=== PATIENT | male | born 1950 | race Caucasian/White ===

== ENCOUNTER 2020-05-06 11:13 | Inpatient (IN) ==
[2020-05-06] MEDS ORDERED: IOPAMIDOL 125 ML BOTTLE IV ONE (11:14)
[2020-05-06] MEDS ORDERED: 0.9 % SODIUM CHLORIDE 1,000 ML IV ONE ×3 (11:36→16:12)
[2020-05-06] MEDS ORDERED: INSULIN REGULAR, HUMAN 1 UNIT/0.01 ML UNIT IV ONE (12:01)
[2020-05-06 12:14] LABS: POC Creatinine 1.5 mg/dL (0.6-1.2)
--- NOTE | 2020-05-06 12:37 | Emergency Department Note ---
Weakness HPI General Chief complaint: Weakness Stated complaint: weakness in legs Time Seen by Provider: 05/06/20 11:18 Source: patient, RN notes reviewed and old records reviewed Mode of arrival: wheelchair Limitations: no limitations History of Present Illness HPI Narrative: Narrative: 70-year-old male complaining of generalized weakness but greatest in his lower extremities times months. Has a history of diabetes peripheral neuropathy wounds to bilateral lower extremities that have been getting worse to the point where he is unable to walk. States that he cannot walk to the bathroom and cannot take showers. And complains of generalized debilitation and unable to care for himself. Complains of numbness tingling and decreased sensation and motor control to bilateral lower extremities. Has a weeping wound to the heel of his left foot. Denies any headache vision changes sore throat stiff neck chest pain abdominal pain bowel or bladder changes. Complains of dyspnea on exertion and poor p.o. intake. MD Complaint: generalized weakness, numbness, tingling and difficulty walking Onset (ago): month(s) Duration: constant Location: LLE and RLE Migration: ascending Severity: severe Quality: tingling and numbness Improves with: none Worsens with: movement and exertion Context: history of similar Associated symptoms: Reports loss of appetite, myalgias and shortness of breath; Denies chest pain, diaphoresis, fever/chills and nausea/vomiting Related Data Home Medications Medication Instructions Recorded Confirmed metformin 1,000 mg PO BID 05/06/20 05/06/20 Previous Rx's Medication Instructions Recorded blood sugar diagnostic #100 each 01/26/17 pen needle, diabetic 31 gauge x #100 each 04/27/1705/08" losartan 100 1 tab PO QDAY #90 tab 03/26/20 mg-hydrochlorothiazide 25 mg tablet blood pressure test kit-large #1 ea 04/16/20 gabapentin 300 mg capsule 300 mg PO BID #180 cap 04/16/20 Allergies Allergy/AdvReac Type Severity Reaction Status Date / Time Penicillins Allergy Unknown Difficulty Verified 05/06/20 11:20 Breathing Review of Systems ROS ROS Narrative: Narrative: All systems ED: reviewed and negative except as stated. PFSH Narrative Patient History Narrative: Narrative: Medical/Surgical/Family History All Active Problems (Updated 05/06/20 @ 15:54 by Maurilio Skinner MD) Gangrene (Acute) Near syncope (Acute) Weakness (Acute) Diabetic ulcer of laughlin (Acute) Diabetic peripheral neuropathy (Chronic) Right knee pain (Acute) HTN (hypertension) (Chronic) Foot ulcer due to secondary DM (Acute) Tobacco abuse (Chronic) Blind left eye (Chronic ~1968) Lung disease (Chronic) DMII (diabetes mellitus, type 2) (Chronic ~2003) Medical History (Updated 05/06/20 @ 15:54 by Maurilio Skinner MD) Blind left eye (~1968) DMII (diabetes mellitus, type 2) (~2003) Lung disease Tobacco abuse Surgical History H/O colonoscopy (~1999) H/O eye surgery (~1968) Blind in left eye Family History Mother Dementia Social History Smoking Status: Current every day smoker Alcohol Intake Frequency: 0-2 drinks per day Substance Use: does not use Exam Narrative Narrative: Narrative: General Limitations: no limitations General appearance: Present alert, in no apparent distress and malaise Head Head: Present atraumatic and normocephalic Eye Eye: Present PERRL and other (Blind in the left eye); Absent normal appearance and EOMI ENT ENT: Present normal exam and mucous membranes dry Neck Neck: Present normal inspection and full ROM Chest Chest: Present normal inspection; Absent tenderness Respiratory Respiratory: Present normal lung sounds bilaterally; Absent respiratory distress Cardiovascular Cardiovascular: Present regular rate and normal rhythm; Absent systolic murmur Adbominal Abdominal: Present soft; Absent distention, tenderness, guarding and rebound Extremities Extremities: Present full ROM, pedal edema, pretibial edema, cyanosis and other (Has marked wet gangrenous necrosis to his left heel. Chronic stasis changes to bilateral lower extremities. Wounds to right foot.); Absent tenderness Back Back: Present normal inspection; Absent CVA tenderness (R) and CVA tenderness (L) Neurological Neurological: Present alert and oriented X3 Psychiatric Psychiatric: Present normal affect and normal mood Skin Skin: Present warm (WNL); Absent rash Course Vital Signs Vital signs: Vital Signs Temperature 97.0 F 05/06/20 11:14 Pulse Rate 86 05/06/20 11:14 Respiratory Rate 20 05/06/20 11:14 Blood Pressure 129/76 05/06/20 11:14 Pulse Oximetry (%) 100 05/06/20 11:14 Temperature 97.0 F 05/06/20 11:14 Pulse Rate 84 05/06/20 15:51 Respiratory Rate 18 05/06/20 15:51 Blood Pressure 116/66 05/06/20 15:46 Pulse Oximetry (%) 98 05/06/20 15:51 MDM MDM Narrative Medical decision making narrative: Narrative: 70-year-old male with hyperglycemia or 51 has been treated with IV fluids and IV insulin await recheck elevated white count with osteomyelitis of the left lower extremity. Complaints of generalized weakness and inability to ambulate. CT scan with arterial runoff into bilateral lower extremities. Renal insufficiency which has worsened. Patient will be admitted for IV antibiotics orthopedic consult IV fluids glucose management. Lab Data Lab results reviewed: Yes I reviewed the patient's lab results. Result diagrams: 05/06/20 11:48 05/06/20 11:48 Labs: Lab Results 05/06/20 05/06/20 05/06/20 Range/Units 11:48 11:48 11:48 WBC 13.4 H (4.5-11.0) K/mcL RBC 2.41 L (4.50-5.90) M/mcL Hgb 8.4 L (13.5-16.5) g/dL Hct 25.1 L (41.0-55.0) % MCV 104.1 H (80.0-100.0) fL MCH 34.9 H (26.0-34.0) pg MCHC 33.5 (31.0-36.0) g/dL RDW 13.2 (11.5-14.5) % Plt Count 197 (140-440) K/mcL MPV 11.1 H (7.4-10.4) fL Neut % (Auto) 92.9 H (38.0-78.0) % Lymph % (Auto) 4.0 L (15.0-49.0) % [place] % (Auto) 2.7 (1.0-12.0) % Eos % (Auto) 0.1 (0.0-7.0) % Baso % (Auto) 0.3 (0.0-2.0) % Lymph # (Auto) 0.54 L (1.50-4.80) K/mcL [place] # (Auto) 0.36 (0.10-0.90) K/mcL Eos # (Auto) 0.01 (0.00-0.70) K/mcL Baso # (Auto) 0.04 (0.00-0.20) K/mcL Absolute Neutrophils 12.42 H (1.80-8.00) K/mcL ESR 122 H (0-15) mm/hr VBG Lactic Acid (0.5-2.0) mmol/L Sodium 122 L (133-145) mmol/L Potassium 4.0 (3.3-5.1) mmol/L Chloride 86 L (96-108) mmol/L Carbon Dioxide 23 (22-30) mmol/L Anion Gap 13.0 (8.0-16.0) BUN 77 H (8-23) mg/dL Creatinine 1.8 H (0.7-1.2) mg/dL POC Creatinine 1.5 H (0.6-1.2) mg/dL GFR Calculation 38 Glucose 651 H* (70-105) mg/dL Calcium 8.9 (8.6-10.4) mg/dL Total Bilirubin 3.4 H (0.1-1.0) mg/dL AST 27 (<40) U/L ALT 21 (<40) U/L Alkaline Phosphatase 139 H (39-117) U/L Troponin T 0.03 H (<0.03) ng/mL C-Reactive Protein 23.90 H (0.03-0.80) mg/dL Total Protein 6.7 (5.9-8.4) gm/dL Albumin 2.4 L (3.2-5.2) gm/dL Globulin 4.3 H (2.2-3.7) gm/dL Albumin/Globulin Ratio 0.6 L (1.0-2.3) 05/06/20 Range/Units 11:48 WBC (4.5-11.0) K/mcL RBC (4.50-5.90) M/mcL Hgb (13.5-16.5) g/dL Hct (41.0-55.0) % MCV (80.0-100.0) fL MCH (26.0-34.0) pg MCHC (31.0-36.0) g/dL RDW (11.5-14.5) % Plt Count (140-440) K/mcL MPV (7.4-10.4) fL Neut % (Auto) (38.0-78.0) % Lymph % (Auto) (15.0-49.0) % [place] % (Auto) (1.0-12.0) % Eos % (Auto) (0.0-7.0) % Baso % (Auto) (0.0-2.0) % Lymph # (Auto) (1.50-4.80) K/mcL [place] # (Auto) (0.10-0.90) K/mcL Eos # (Auto) (0.00-0.70) K/mcL Baso # (Auto) (0.00-0.20) K/mcL Absolute Neutrophils (1.80-8.00) K/mcL ESR (0-15) mm/hr VBG Lactic Acid 1.8 (0.5-2.0) mmol/L Sodium (133-145) mmol/L Potassium (3.3-5.1) mmol/L Chloride (96-108) mmol/L Carbon Dioxide (22-30) mmol/L Anion Gap (8.0-16.0) BUN (8-23) mg/dL Creatinine (0.7-1.2) mg/dL POC Creatinine (0.6-1.2) mg/dL GFR Calculation Glucose (70-105) mg/dL Calcium (8.6-10.4) mg/dL Total Bilirubin (0.1-1.0) mg/dL AST (<40) U/L ALT (<40) U/L Alkaline Phosphatase (39-117) U/L Troponin T (<0.03) ng/mL C-Reactive Protein (0.03-0.80) mg/dL Total Protein (5.9-8.4) gm/dL Albumin (3.2-5.2) gm/dL Globulin (2.2-3.7) gm/dL Albumin/Globulin Ratio (1.0-2.3) ED POC Tests ED POC Tests: RENEE - SARS Antigen Negative EKG Data EKG #1: EKG attestation: Yes I reviewed and interpreted this EKG. EKG shows normal: sinus rhythm Rate: tachycardia Rhythm: NSR QTc: prolonged Interpretation: nonspecific ST-T wave changes Pulse Oximetry Data Pulse Ox %: 96 Interpretation: 96% on room air within normal limits Discharge Plan Patient/Caregiver Discharge Instructions Pt seen by MORTGAGE LOAN OFFICER/PA only: No Clinical Impression: Blind left eye, Gangrene DMII (diabetes mellitus, type 2) Qualifiers: Diabetes mellitus watermelon inspector insulin use: unspecified long-term insulin use status Diabetes mellitus complication status: with skin complications Patient Disposition: Xfer As Inpt ([facility]) Follow up with: Hayes Issa DO [Primary Care Provider] - Prescriptions: No Action (DME) pen needle, diabetic [BD Ultra-Fine Mini Pen Needle] 31 gauge x 3/16" needle See Dose Instructions .ROUTE .MEDSUPPLY Qty: 100 RF: 11 (DME) blood sugar diagnostic [Contour Next Test Strips] strip See Dose Instructions .ROUTE .MEDSUPPLY Qty: 100 RF: 4 losartan-hydrochlorothiazide 100-25 mg tablet 1 tab PO QDAY Qty: 90 RF: 3 gabapentin 300 mg capsule 300 mg PO BID Qty: 180 RF: 3 (DME) blood pressure test kit-large Kit See Rx Instructions .ROUTE .MEDSUPPLY Qty: 1 RF: 0 metformin 1,000 mg Tablet 1,000 mg PO BID RF: 0
[2020-05-06 12:55] LABS: Basophils # (Auto) 0.04 K/mcL (0.00-0.20); Basophils % (Auto) 0.3 % (0.0-2.0); Eosinophils # (Auto) 0.01 K/mcL (0.00-0.70); Eosinophils % (Auto) 0.1 % (0.0-7.0); Hematocrit 25.1 % (41.0-55.0); Hemoglobin 8.4 g/dL (13.5-16.5); Lymphocytes # (Auto) 0.54 K/mcL (1.50-4.80); Mean Cell Volume 104.1 fL (80.0-100.0); Mean Corpuscular HGB Conc 33.5 g/dL (31.0-36.0); Mean Platelet Volume 11.1 fL (7.4-10.4); Monocytes # (Auto) 0.36 K/mcL (0.10-0.90); Monocytes % (Auto) 2.7 % (1.0-12.0); Neutrophils % (Auto) 92.9 % (38.0-78.0); Platelet Count 197 K/mcL (140-440); RBC 2.41 M/mcL (4.50-5.90); Red Cell Distribution Width 13.2 % (11.5-14.5); WBC 13.4 K/mcL (4.5-11.0)
[2020-05-06 13:11] LABS: ALT/SGPT 21 U/L (<40); AST/SGOT 27 U/L (<40); Albumin 2.4 gm/dL (3.2-5.2); Albumin/Globulin Ratio 0.6 (1.0-2.3); Alkaline Phosphatase 139 U/L (39-117); Bilirubin,Total 3.4 mg/dL (0.1-1.0); Blood Urea Nitrogen 77 mg/dL (8-23); Calcium 8.9 mg/dL (8.6-10.4); Carbon Dioxide 23 mmol/L (22-30); Chloride 86 mmol/L (96-108); Globulin 4.3 gm/dL (2.2-3.7); Glomerular Filtration Rate 38; Glucose 651 mg/dL (70-105)
[2020-05-06] MEDS ORDERED: VANCOMYCIN 1,500 MG in 0.9 % SODIUM CHLORIDE 500 ML IV ONE (13:12)
[2020-05-06] MEDS ORDERED: LEVOFLOXACIN 750 MG/150 ML BAG IV SCH (13:15)
--- NOTE | 2020-05-06 13:31 | XRay Report ---
CLINICAL INFORMATION: Pre Op COMPARISON: 03/26/2020 FINDINGS: Heart is upper limits of normal in size - stable. Mediastinum and pulmonary vessels are normal. Minor bibasilar atelectasis noted. There are no arely infiltrates or effusions. IMPRESSION: Minor bibasilar atelectasis. Interpreted and Authenticated by: Hayes Harkins 05/06/20
--- NOTE | 2020-05-06 14:11 | Cat Scan Report ---
CLINICAL INFORMATION: Left lower extremity necrosis COMPARISON: None. TECHNIQUE: 120 cc of Isovue-370 were injected intravenously and, using SmartPrep to maximize arterial opacification, 0.625 mm helical slices were obtained from the diaphragm through the feet following reconstruction, 2.5 mm sagittal, coronal and axial reformatted images were processed and reviewed at bone and soft tissue windows. 3-D volume rendered and selective CPR images were constructed on an independent workstation.The exam was performed using radiation dose optimization techniques including, but not limited to, automated exposure control, adjustment of the mA and/or kV according to patient size and use of iterative reconstruction technique. FINDINGS: The abdominal aorta is normal diameter (16 mm) and contained scattered calcific and fibrofatty plaque. The celiac, SMA, PATRICK and renal arteries contain minimal plaque, but no stenoses. Both common, external and internal iliac, common femoral, superficial femoral and popliteal arteries contain scattered atherosclerotic plaque but no significant stenoses (less than 30%) on the right, a single trifurcation artery, posterior tibial, is patent to the foot. Multiple stenoses greater than 70% are seen within the posterior tibial artery. Both the anterior tibial and peroneal arteries are occluded above the ankle. On the left, the anterior tibial and peroneal arteries are occluded above the ankle. The posterior tibial artery is riddled with multiple stenoses greater than 70%, but is patent to the foot. There is extensive gas within the subcutaneous fat and the deep plantar fascia of the left foot. Smaller amounts in the dorsal subcutaneous soft tissues of the foot and also scattered within the ankle. Moderate gas is also seen in the anterior and posterior compartments of the calf. Moderate cellulitis and fasciitis is seen in in all left foot and calf compartments. On the right side, there is moderate cellulitis throughout the calf and foot. No evidence of gas however. Axial images also show multiple stones packing the gallbladder. Moderate right and small left patellofemoral/tibiofemoral effusions. Prostate is mildly enlarged 4.5 x 3.5 cm. There is either a prostate nodule or primary bladder polyp measuring 12 mm adjacent to the prostate base invaginating the urinary bladder. L4-5 and L5-S1 there is moderate central canal, lateral recess stenosis due to broad disc protrusion, ligament flavum and facet hypertrophy IMPRESSION: 1. The abdominal aorta, all iliac, common femoral, profunda femoral, superficial femoral and popliteal inflow arteries are widely patent with only minimal scattered calcific plaque. On the right, a single artery right trifurcation runoff: The posterior tibial artery which is patent to the foot. On the left, single vessel trifurcation artery - the posterior tibial artery is patent to the foot. There are multiple stenoses in both posterior tibial arteries: greater than 70% . 2. Extensive cellulitis throughout the left foot and calf including subcutaneous fat and fascia. Suspect infection with a gas forming organism. On the right, there is mild cellulitis in the calf and foot, but no evidence of gas. 3. Cholelithiasis. 4. Mild prostate enlargement. 12 mm prostate nodule versus polyp in the urinary bladder base. 5. Moderate right and small left tibiofemoral and patellofemoral effusions. Interpreted and Authenticated by: Hayes Harkins 05/06/20
[2020-05-06 14:25] LABS: Erythrocyte Sedimentation Rate 122 mm/hr (0-15)
[2020-05-06] MEDS ORDERED: INSULIN REGULAR, HUMAN 50 UNIT in 0.9 % SODIUM CHLORIDE 99.5 ML IV SCH ×2 (14:30→17:52)
--- NOTE | 2020-05-06 17:11 | Internal Med History&Physical ---
HPI History of Present Illness Patient information: Note initiated : 05/06/20 at 5:07 pm Service Date, if different from initiated Date: [] Patient: Frantz Johnston 70 y/o M admitted on for weakness in legs. Chief Complaint: Bilateral lower extremity redness weakness and gangrenous changes left heel History of present illness: Mr. Johnston is a 70 year old M with a history of poorly controlled diabetes/lower extremity diabetic wound who presents to the ER due to worsening lower extremity weakness/confusion/inability to take care of self. Patient also has not been able to bear weight or walk for the last few days. He lives alone at [place] and has been medically helpless over the last few days. He frequently sees wound care but was unable to change dressings. He complains of putrid foul-smelling odor with redness tenderness extending up to the lower thighs. He denied associated fever or chills but has been getting confused and lightheaded. Initial work-up in the ER was consistent with hyperosmolar nonketotic state with blood sugars in 600/acute kidney injury/gangrenous changes left lower extremity and bilateral lower extremity cellulitis. Patient was started on antibiotic coverage after cultures were drawn along with insulin drip and crystalloids. Orthopedic was consulted for possible surgical evaluation and amputation. He underwent CT runoff abdomen along with lower extremity that reveals extensive cellulitis in the left foot and gas and subcutaneous fat and fascia. Also cellulitis right lower extremity noted. Hospitalist service was consulted in light of above At the time of evaluation patient is very anxious/confused/unable to provide a detailed history but was able to endorse review of systems. Patient is very lethargic and confused. No family members present. Most of the history was obtained from review of medical records and ED physician. Patient was able to provide a very limited history. He has not been able to change his dressings recently that has led to worsening wounds. He is however reluctant for surgical intervention but his understanding of the severity of necrotizing infection may be limited due to mental status change due to sepsis induced toxic encephalopathy. Review of systems 10 point review system was performed and is negative except for 1 discussed above PFSH PFSH All Active Problems Gangrene (Acute) Near syncope (Acute) Weakness (Acute) Diabetic ulcer of laughlin (Acute) Diabetic peripheral neuropathy (Chronic) Right knee pain (Acute) HTN (hypertension) (Chronic) Foot ulcer due to secondary DM (Acute) Tobacco abuse (Chronic) Blind left eye (Chronic ~1968) Lung disease (Chronic) DMII (diabetes mellitus, type 2) (Chronic ~2003) Medical History Blind left eye (~1968) DMII (diabetes mellitus, type 2) (~2003) Lung disease Tobacco abuse Surgical History H/O colonoscopy (~1999) H/O eye surgery (~1968) Blind in left eye Family History Mother Dementia Social History marital status: smoking status: Current every day smoker tobacco type: cigarettes alcohol intake frequency: 0-2 drinks per day substance use type: does not use MEDS/ALLERGIES Home Medications and Allergies Home Medications Medication Instructions Recorded Confirmed Type blood sugar diagnostic #100 each 01/26/17 05/06/20 Rx pen needle, diabetic 31 gauge x #100 each 04/27/17 05/06/20 Rx 3/16" losartan 100 1 tab PO QDAY #90 tab 03/26/20 05/06/20 Rx mg-hydrochlorothiazide 25 mg tablet blood pressure test kit-large #1 ea 04/16/20 05/06/20 Rx gabapentin 300 mg capsule 300 mg PO BID #180 cap 04/16/20 05/06/20 Rx metformin 1,000 mg PO BID 05/06/20 05/06/20 History Allergies Allergy/AdvReac Type Severity Reaction Status Date / Time Penicillins Allergy Severe Difficulty Verified 05/06/20 19:10 Breathing EXAM Constitutional Vitals: Temp Pulse Resp BP Pulse Ox 97.0 F 90 25 H 111/79 99 05/06/20 11:14 05/06/20 16:36 05/06/20 16:36 05/06/20 16:31 05/06/20 16:36 Confused lethargic Head normocephalic Oral cavity dry No ear nose discharge Eye movement symmetrical Neck supple no lymphadenopathy S1-S2 tachycardia Labored shallow breathing Nondistended nontender abdomen Bilateral lower extremity ulcerative changes/erythema below knee left greater than right. Extensive area of gangrenous changes and putrid foul-smelling odor and discharge along the left heel Psych lethargic anxious Neuro GCS 9 DATA Data Completed and Pending Labs: Labs from last 24 hours 05/06/20 05/06/20 05/06/20 16:42 11:48 11:48 WBC RBC Hgb Hct MCV MCH MCHC RDW Plt Count MPV Neut % (Auto) Lymph % (Auto) [place] % (Auto) Eos % (Auto) Baso % (Auto) Lymph # (Auto) [place] # (Auto) Eos # (Auto) Baso # (Auto) Absolute Neutrophils ESR VBG Lactic Acid 1.8 Sodium Potassium Chloride Carbon Dioxide Anion Gap BUN Creatinine POC Creatinine GFR Calculation Glucose Calcium Total Bilirubin AST ALT Alkaline Phosphatase Troponin T 0.03 H C-Reactive Protein Total Protein Albumin Globulin Albumin/Globulin Ratio Urine Color Pending Urine Appearance Pending Urine pH Pending Ur Specific [place] Pending Urine Protein Pending Urine Glucose (UA) Pending Urine Ketones Pending Urine Occult Blood Pending Urine Nitrate Pending Urine Bilirubin Pending Urine Urobilinogen Pending Ur Leukocyte Esterase Pending 05/06/20 05/06/20 11:48 11:48 WBC 13.4 H RBC 2.41 L Hgb 8.4 L Hct 25.1 L MCV 104.1 H MCH 34.9 H MCHC 33.5 RDW 13.2 Plt Count 197 MPV 11.1 H Neut % (Auto) 92.9 H Lymph % (Auto) 4.0 L [place] % (Auto) 2.7 Eos % (Auto) 0.1 Baso % (Auto) 0.3 Lymph # (Auto) 0.54 L [place] # (Auto) 0.36 Eos # (Auto) 0.01 Baso # (Auto) 0.04 Absolute Neutrophils 12.42 H ESR 122 H VBG Lactic Acid Sodium 122 L Potassium 4.0 Chloride 86 L Carbon Dioxide 23 Anion Gap 13.0 BUN 77 H Creatinine 1.8 H POC Creatinine 1.5 H GFR Calculation 38 Glucose 651 H* Calcium 8.9 Total Bilirubin 3.4 H AST 27 ALT 21 Alkaline Phosphatase 139 H Troponin T C-Reactive Protein 23.90 H Total Protein 6.7 Albumin 2.4 L Globulin 4.3 H Albumin/Globulin Ratio 0.6 L Urine Color Urine Appearance Urine pH Ur Specific [place] Urine Protein Urine Glucose (UA) Urine Ketones Urine Occult Blood Urine Nitrate Urine Bilirubin Urine Urobilinogen Ur Leukocyte Esterase A/P Narrative A/P Narrative: * Hyperosmolar hyper glycemic nonketotic state-insulin drip/crystalloid/electrolyte monitoring * Severe sepsis with endorgan dysfunction including acute kidney injury/elevated bilirubin and acute mental status change. Broad antibiotic coverage/pancultures/aggressive management per guidelines * Necrotizing left lower extremity cellulitis/soft tissue infection with gangrenous change suspected gas-forming organism. Broad-spectrum antibiotic coverage/cultures/orthopedic consult for surgical evaluation. Include anaerobic coverage on clindamycin along with vancomycin and cefepime * Acute mental status change secondary to sepsis induced toxic encephalopathy. * Acute change mental status secondary to severe sepsis endorgan dysfunction * Acute renal failure-secondary to severe sepsis endorgan dysfunction. Creatinine 1.8. Avoid nephrotoxins. High likelihood of contrast-induced nephropathy following CT contrast. If worsening consult nephrology * Anemia-transfuse 2 units PRBC if indicated * History of hypertension-hold antihypertensives * DM type II-currently on insulin drip * Prophylaxis Heparin * Plan * Inpatient PCU admission, [place] 2 score 18 signify high risk mortality. * Insulin drip * Crystalloids and electrolyte replacement * Broad spectrum antibiotic coverage * Orthopedic consult * Wound care consult * Pre-existing medical condition management on home meds * Keep n.p.o. after midnight for surgical evaluation * Therapies as tolerated Critical time spent in excess of 35 minutes in addition to time spent on history and physical Time Spent With Patient Time: Total time spent is greater than 50% in coordination of care (as documented) at patient's floor/unit and/or counseling patient:
[2020-05-06 17:14] LABS: Appearance,Urine Clear (Clear); Bilirubin,Urine Negative (Negative); Color,Urine Dark yellow; Culture Indicated,Urine No; Glucose,Urine (UA) >=1000 mg/dL mg/dL (Negative); Ketones,Urine Negative (Negative); Leukocyte Esterase,Urine Negative /ug (Negative); Nitrate,Urine Negative (Negative); Protein,Urine Trace mg/dL (Negative); Specific Gravity,Urine <= 1.005 (1.000-1.035); Urine Blood Trace-intact ery/mcL (Negative); Urine Hyaline Cast 8 /lph (0-2); Urine RBC 1 /hpf (0-3); Urine Squamous Epithelial Cell < 1 /hpf (0-4); Urine WBC 2 /hpf (0-4); Urobilinogen,Urine Normal
[2020-05-06] MEDS ORDERED: DEXTROSE 31 GM ORAL.SUSP PO PRN (17:52)
[2020-05-06] MEDS ORDERED: VANCOMYCIN PER PHARMACY IV SCH (17:52)
[2020-05-06] MEDS ORDERED: ONDANSETRON 4 MG ODT TABLET SL PRN (17:52)
[2020-05-06] MEDS ORDERED: guaiFENesin/CODEINE 10 ML UDC PO PRN (17:52)
[2020-05-06] MEDS ORDERED: [UNRECOGNIZED DRUG - OTHER] SCH (17:52)
[2020-05-06] MEDS ORDERED: POLYETHYLENE GLYCOL 3350 17 GM PACKET PO PRN (17:52)
[2020-05-06] MEDS ORDERED: POTASSIUM CHLORIDE 40 MEQ in DEXTROSE 5% IN WATER 500 ML IV PRN (17:52)
[2020-05-06] MEDS ORDERED: ONDANSETRON 4 MG/2 ML VIAL IV PRN (17:52)
[2020-05-06] MEDS ORDERED: BISACODYL 10 MG SUPP.RECT PR PRN (17:52)
[2020-05-06] MEDS: 0.9 % SODIUM CHLORIDE 1,000 ML IV SCH ×3 (18:05→19:36)
[2020-05-06] MEDS: 0.9 % SODIUM CHLORIDE 250 ML IV SCH (18:18)
[2020-05-06] MEDS ORDERED: INSULIN REGULAR, HUMAN 1 UNIT/0.01 ML UNIT ONE (19:19)
[2020-05-06] MEDS: CEFEPIME 2 GM VIAL IV SCH (19:46)
[2020-05-06] MEDS: PIPERACILLIN SODIUM/TAZOBACTAM 3.375 GM in DEXTROSE 5% IN WATER 50 ML IV SCH ×2 (19:57→23:40)
[2020-05-06] MEDS: GABAPENTIN 300 MG CAPSULE PO SCH (20:22)
[2020-05-06] MEDS: HEPARIN 5,000 UNIT/ML VIAL SQ SCH (20:22)
[2020-05-06] MEDS: CYANOCOBALAMIN (VITAMIN B-12) 500 MCG TABLET PO SCH (20:22)
[2020-05-06] MEDS: 0.9 % SODIUM CHLORIDE 10 ML SYRINGE IV SCH (20:23)
[2020-05-06] MEDS: SENNOSIDES/DOCUSATE SODIUM 1 TAB TABLET PO SCH (20:23)
[2020-05-06] MEDS: DOCUSATE SODIUM 100 MG CAPSULE PO SCH (20:23)
[2020-05-06] MEDS: INSULIN LISPRO 1 UNIT/0.01 ML UNIT SQ SCH (21:52)
[2020-05-06] MEDS: DEXTROSE 5%-NS 1,000 ML IV SCH (22:15)
[2020-05-07] MEDS ORDERED: INSULIN REGULAR, HUMAN 1 UNIT/0.01 ML UNIT ONE (00:04)
[2020-05-07] MEDS: DEXTROSE 50% 50 ML VIAL IV PRN ×3 (00:13→03:10)
[2020-05-07 01:00] LABS: ALT/SGPT 16 U/L (<40); AST/SGOT 23 U/L (<40); Albumin 1.8 gm/dL (3.2-5.2); Albumin/Globulin Ratio 0.5 (1.0-2.3); Alkaline Phosphatase 98 U/L (39-117); Bilirubin,Direct 1.6 mg/dL (<0.3); Bilirubin,Total 1.8 mg/dL (0.1-1.0); Blood Urea Nitrogen 72 mg/dL (8-23); Calcium 8.2 mg/dL (8.6-10.4); Carbon Dioxide 24 mmol/L (22-30); Chloride 100 mmol/L (96-108); Globulin 3.6 gm/dL (2.2-3.7); Glomerular Filtration Rate 47; Glucose 54 mg/dL (70-105); Lactate Dehydrogenase 151 U/L (135-225); Triglycerides 119 mg/dL (<150); Uric Acid 8.9 mg/dL (2.5-8.0)
[2020-05-07] MEDS: MAGNESIUM SULFATE 2 GM/50 ML BAG IV PRN ×2 (01:59→08:00)
[2020-05-07] MEDS ORDERED: POTASSIUM CHLORIDE 20 MEQ/10 ML VIAL IV ONE (04:14)
[2020-05-07] MEDS: PIPERACILLIN SODIUM/TAZOBACTAM 3.375 GM in DEXTROSE 5% IN WATER 50 ML IV SCH (05:32)
[2020-05-07] MEDS: 0.9 % SODIUM CHLORIDE 10 ML SYRINGE IV SCH ×3 (05:33→22:08)
--- NOTE | 2020-05-07 06:31 | Consultation ---
DATE OF CONSULTATION: 05/06/2020 IDENTIFICATION: This is a 70-year-old male. CHIEF COMPLAINT: A left foot diabetic ulcer/gangrene. HISTORY OF PRESENT ILLNESS: This is a gentleman who has had previous foot ulcers that had been managed. He now suggests that he has had a several months' history of wounds to his bilateral feet, the left is most prominent, and he states this has been present for several months. It is unclear of how valid is his history. He presented today with confusion and diffuse weakness. He now presents with foul-smelling clearly infected left foot wound. PAST MEDICAL HISTORY: Diabetes, peripheral neuropathy, hypertension, lung disease. PAST SURGICAL HISTORY: Colonoscopy and eye surgeries, blind in the left eye. SOCIAL HISTORY: He lives alone in [place]. He is a daily smoker. MEDICATIONS: See medical record for a complete list, but he does take losartan/hydrochlorothiazide, gabapentin, metformin, and presumably insulin. ALLERGIES: HE LISTS PENICILLIN. PHYSICAL EXAMINATION: GENERAL: Shows that he is awake and seemingly alert. HEENT: Head is normocephalic. Left eye does have evidence of previous surgery and again blindness, left eye. HEART: Regular. LUNGS: Clear. ABDOMEN: Benign. EXTREMITIES: His left lower extremities shows a black eschar over the entire plantar surface of the heel. This extends to about mid foot. There is some fluctuance beneath this. There is surprisingly minimal cellulitis around it, but clearly there is a foul odor and this appears to be infected. He does have some several small superficial ulcers on the right. LABORATORY DATA: His white count is elevated at 13.4. He has a sed rate of 122. IMPRESSION: Necrotic wound of the left foot. The patient presents with signs of sepsis and unstable diabetes as initial presenting. Blood sugar 651, has acute renal failure. I have discussed treatment options with the patient. He is very adamant that no amputation would be consented to. I did discuss that debridement might be required and failure to adequately address his infection could be life threatening. The patient will certainly consider it, but he does not consent to any kind of surgical debridement at this time and adamantly states that he will not consider any amputation. The patient will be treated aggressively with antibiotics. Additional discussion about debridement will be held with the patient. I do think that he is ultimately best managed probably with an amputation. I will discuss this further with Dr. Farrar, foot and ankle surgeon. GDD:duane Job ID: [id number] Doc ID: [id number] Balwinder Spnecer MD
[2020-05-07 06:59] LABS: Basophils # (Auto) 0.02 K/mcL (0.00-0.20); Basophils % (Auto) 0.2 % (0.0-2.0); Eosinophils # (Auto) 0.08 K/mcL (0.00-0.70); Eosinophils % (Auto) 0.8 % (0.0-7.0); Hematocrit 19.4 % (41.0-55.0); Hemoglobin 6.6 g/dL (13.5-16.5); Lymphocytes # (Auto) 0.94 K/mcL (1.50-4.80); Lymphocytes % (Auto) 8.9 % (15.0-49.0); Mean Cell Volume 100.5 fL (80.0-100.0); Mean Platelet Volume 10.8 fL (7.4-10.4); Monocytes # (Auto) 0.49 K/mcL (0.10-0.90); Monocytes % (Auto) 4.6 % (1.0-12.0); Neutrophils % (Auto) 85.5 % (38.0-78.0); Platelet Count 180 K/mcL (140-440); RBC 1.93 M/mcL (4.50-5.90); Red Cell Distribution Width 13.3 % (11.5-14.5); WBC 10.6 K/mcL (4.5-11.0)
[2020-05-07 07:05] LABS: ALT/SGPT 15 U/L (<40); AST/SGOT 24 U/L (<40); Albumin 1.7 gm/dL (3.2-5.2); Albumin/Globulin Ratio 0.5 (1.0-2.3); Alkaline Phosphatase 102 U/L (39-117); Bilirubin,Direct 1.5 mg/dL (<0.3); Bilirubin,Total 1.8 mg/dL (0.1-1.0); Blood Urea Nitrogen 72 mg/dL (8-23); Calcium 8.1 mg/dL (8.6-10.4); Carbon Dioxide 22 mmol/L (22-30); Chloride 101 mmol/L (96-108); Globulin 3.5 gm/dL (2.2-3.7); Glomerular Filtration Rate 43; Glucose 136 mg/dL (70-105); Lactate Dehydrogenase 154 U/L (135-225); Phosphorous 2.2 mg/dL (2.5-4.5); Triglycerides 112 mg/dL (<150); Uric Acid 9.3 mg/dL (2.5-8.0)
[2020-05-07] MEDS ORDERED: 0.9 % SODIUM CHLORIDE 250 ML IV SCH (07:30)
[2020-05-07] MEDS: 0.9 % SODIUM CHLORIDE 250 ML IV SCH ×2 (07:54→17:48)
--- NOTE | 2020-05-07 08:09 | Ultrasound Report ---
History: Acute kidney injury FINDINGS: The right kidney measures 5.6 x 5.7 x 12.2 cm and the left measures 5.2 x 5.8 x 12.1 cm. The cortex is normal in thickness and echogenicity bilaterally. Patient has severe fatty infiltration of the liver, seen on yesterday's CT scan. Therefore the echogenicity of the renal cortex cannot be compared with the liver but it can be compared with the spleen. There is no renal mass, cyst, calculus or hydronephrosis. Urinary bladder is decompressed by a Verdugo catheter. With the decompressed bladder, we are unable to document flow of urine through either ureter into the bladder. Prostate has an estimated volume of 34 cc. IMPRESSION: Anatomically normal kidneys and no significant change from the abdomen CT scan performed on 05/06/20 Interpreted and Authenticated by: Nestor Adair 05/07/20
[2020-05-07] MEDS: INSULIN LISPRO 1 UNIT/0.01 ML UNIT SQ SCH ×4 (08:14→21:39)
--- NOTE | 2020-05-07 08:52 | Orthopedic Consult Note ---
HPI Data of Consult Primary Care Provider: Hayes Issa DO Consult Narrative Patient Information: Note initiated : 05/07/20 at 8:48 am Service Date, if different from initiated Date: [] Patient: Frantz Johnston 70 y/o M admitted on 05/06/20 for weakness in legs. Chief Complaint: [left foot infection] cc:: CC: Reji Almonte PFS PFSH All Active Problems Gangrene (Acute) Near syncope (Acute) Weakness (Acute) Diabetic ulcer of laughlin (Acute) Diabetic peripheral neuropathy (Chronic) Right knee pain (Acute) HTN (hypertension) (Chronic) Foot ulcer due to secondary DM (Acute) Tobacco abuse (Chronic) Blind left eye (Chronic ~1968) Lung disease (Chronic) DMII (diabetes mellitus, type 2) (Chronic ~2003) Medical History Blind left eye (~1968) DMII (diabetes mellitus, type 2) (~2003) Lung disease Tobacco abuse Surgical History H/O colonoscopy (~1999) H/O eye surgery (~1968) Blind in left eye Family History Mother Dementia Social History marital status: smoking status: Current every day smoker tobacco type: cigarettes alcohol intake frequency: 0-2 drinks per day substance use type: does not use MEDS/ALLERGIES Home Medications and Allergies Home Medications Medication Instructions Recorded Confirmed Type blood sugar diagnostic #100 each 01/26/17 05/06/20 Rx pen needle, diabetic 31 gauge x #100 each 04/27/17 05/06/20 Rx 3/16" losartan 100 1 tab PO QDAY #90 tab 03/26/20 05/06/20 Rx mg-hydrochlorothiazide 25 mg tablet blood pressure test kit-large #1 ea 04/16/20 05/06/20 Rx gabapentin 300 mg capsule 300 mg PO BID #180 cap 04/16/20 05/06/20 Rx metformin 1,000 mg PO BID 05/06/20 05/06/20 History Allergies Allergy/AdvReac Type Severity Reaction Status Date / Time Penicillins Allergy Severe Difficulty Verified 05/06/20 19:10 Breathing Physical Examination Ankle & Foot left: Ankle appearance: swelling, erythema and contusion Foot appearance: swelling, erythema and other (gangrene, malodorous left foot; heart: s1, s2, no murmur; lungs: low respiratory volume, crackles on exhale, not clear to auscultation) A/P Time Spent With Patient Time: Total time spent is greater than 50% in coordination of care (as documented) at patient's floor/unit and/or counseling patient: 1. 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
[2020-05-07] MEDS: CYANOCOBALAMIN (VITAMIN B-12) 500 MCG TABLET PO SCH ×2 (09:36→21:18)
[2020-05-07] MEDS: sitaGLIPtin 100 MG TABLET PO SCH (09:36)
[2020-05-07] MEDS: MULTIVIT,THER IRON,CA,FA & MIN 1 TABLET PO SCH (09:36)
[2020-05-07] MEDS: DOCUSATE SODIUM 100 MG CAPSULE PO SCH ×2 (09:36→21:17)
[2020-05-07] MEDS: THIAMINE 100 MG TABLET PO SCH (09:36)
[2020-05-07] MEDS: GABAPENTIN 300 MG CAPSULE PO SCH ×2 (09:36→21:18)
[2020-05-07] MEDS: HEPARIN 5,000 UNIT/ML VIAL SQ SCH ×2 (09:37→21:40)
[2020-05-07] MEDS: CEFEPIME 2 GM VIAL IV SCH ×2 (09:39→19:48)
[2020-05-07] MEDS: VANCOMYCIN 1,500 MG in 0.9 % SODIUM CHLORIDE 500 ML IV SCH (09:40)
[2020-05-07] MEDS: CLINDAMYCIN 600 MG in DEXTROSE 5% IN WATER 50 ML IV SCH ×2 (11:00→22:08)
[2020-05-07] MEDS ORDERED: GENTAMICIN SULFATE 800 MG/20 ML VIAL IR ONE (13:32)
[2020-05-07] MEDS ORDERED: BENZOCAINE/MENTHOL 1 LOZENGE PO PRN (13:33)
[2020-05-07] MEDS ORDERED: LACTATED RINGERS 250 ML IV PRN (13:33)
[2020-05-07] MEDS ORDERED: NALOXONE HCL 0.4 MG/ML VIAL IV PRN (13:33)
[2020-05-07] MEDS ORDERED: fentaNYL 100 MCG/2 ML VIAL IV PRN (13:33)
[2020-05-07] MEDS ORDERED: IPRATROPIUM/ALBUTEROL 3 ML AMPUL.NEB NEB PRN (13:33)
[2020-05-07] MEDS ORDERED: ACETAMINOPHEN 1,000 MG/100 ML BAG IV ONE (13:33)
--- NOTE | 2020-05-07 13:33 | Internal Med Progress Note ---
SUBJECTIVE Subjective Patient information: Note initiated : 05/07/20 at 1:28 pm Service Date, if different from initiated Date: [] Patient: Frantz Johnston 70 y/o M admitted on 05/06/20 for weakness in legs. Chief Complaint: [] Interval history: Mr. Johnston is a 70 year old M with a history of poorly controlled diabetes/lower extremity diabetic wound who presents to the ER due to worsening lower extremity weakness/confusion/inability to take care of self. Patient also has not been able to bear weight or walk for the last few days. He lives alone at [place] and has been medically helpless over the last few days. He frequently sees wound care but was unable to change dressings. He complains of putrid foul-smelling odor with redness tenderness extending up to the lower thighs. He denied associated fever or chills but has been getting confused and lightheaded. Initial work-up in the ER was consistent with hyperosmolar nonketotic state with blood sugars in 600/acute kidney injury/gangrenous changes left lower extremity and bilateral lower extremity cellulitis. Patient was started on antibiotic coverage after cultures were drawn along with insulin drip and crystalloids. Orthopedic was consulted for possible surgical evaluation a nd amputation. He underwent CT runoff abdomen along with lower extremity that reveals extensive cellulitis in the left foot and gas and subcutaneous fat and fascia. Also cellulitis right lower extremity noted. Hospitalist service was consulted in light of above At the time of evaluation patient is very anxious/confused/unable to provide a detailed history but was able to endorse review of systems. Patient is very lethargic and confused. No family members present. Most of the history was obt ained from review of medical records and ED physician. Patient was able to provide a very limited history. He has not been able to change his dressings recently that has led to worsening wounds. He is however reluctant for surgical intervention but his understanding of the severity of necrotizing infection may be limited due to mental status change due to sepsis induced toxic encephalopathy. 05/07-patient critically ill with gangrenous changes left lower extremity along with cellulitis. On broad antibiotic coverage. On insulin drip for HSM today. Hemoglobin 6.8 on 2 units blood transfusion. Remains critically ill. Patient continues to refuse surgical amputation advised by orthopedics. Will likely undergo debridement. Podiatry on board. White count 10.6, hemoglobin 6.6, glucose improved to 136, creatinine 1.6, phosphorus 2.2, bilirubin downtrending at 1.8. Constitutional Vitals: Vital Signs Temp Pulse Resp BP Pulse Ox 98.7 F 88 17 113/64 100 05/07/20 11:31 05/07/20 09:00 05/07/20 11:31 05/07/20 11:31 05/07/20 11:31 Period Temp Pulse Resp BP Sys/Anderson Pulse Ox Last 24 Hr 97.4 F-99.0 F 78-125 0-30 84-133/50-89 92-100 Intake and Output 05/06/20 05/07/20 05/07/20 21:59 05:59 13:59 Intake Total 3718 315 54 Output Total 3 251 75 Balance [facility]5 64 -21 Weight 78.063 kg Lethargic and drowsy but better than previous day Nonlabored breathing Pallor noted Putrid foul-smelling odor from necrotic soft tissue infection lower extremity Intake & Output: Intake & Output 05/06/20 05/07/20 05/07/20 21:59 05:59 13:59 Intake Total 3718 315 54 Output Total 3 251 75 Balance 3715 64 -21 Weight 78.063 kg Intake: IV 3718 315 54 Sodium Chloride 0.9% 1,000 ml @ 3000 Wide Open IV BOLUS SOL Rx#: [id number] Sodium Chloride 0.9% 250 ml @ 224 20 mls/hr IV .[id number] SOL Rx#: [id number] Cleocin 600 mg In Dextrose 5% 54 in Water 50 ml @ 100 mls/hr IV Q8H SOL Rx#:[id number] HumuLIN R 50 UNIT In Sodium 68 41 Chloride 0.9% 99.5 ml @ 1 UNIT/ HR 2 mls/hr IV DUR SOL Rx#: [id number] Vancomycin 1,500 mg In Sodium 500 Chloride 0.9% 500 ml @ 333.3 mls/hr IV ONCE ONE Rx#: [id number] Output: Urine Catheter Amount 250 75 # of times incontinent of urine 3 1 Other: Urine Appearance Clear Clear Uretheral (Verdugo) Clear Urine Color Dark Asia Dark Asia Light Asia Uretheral (Verdugo) Light Asia Urine Odor Strong Strong # Voids 1 OBJ DATA Labs CBC & Chem 7: 05/07/20 05:23 05/07/20 05:23 Labs: Abnormal Lab Results 05/07/20 05/07/20 05/06/20 05:23 05:23 16:42 WBC RBC 1.93 L Hgb 6.6 L* Hct 19.4 L* MCV 100.5 H MCH 34.2 H MPV 10.8 H Neut % (Auto) 85.5 H Lymph % (Auto) 8.9 L Lymph # (Auto) 0.94 L Absolute Neutrophils 9.07 H ESR Sodium Potassium Chloride BUN 72 H Creatinine 1.6 H POC Creatinine Glucose 136 H Uric Acid 9.3 H Calcium 8.1 L Phosphorus 2.2 L Magnesium Total Bilirubin 1.8 H Direct Bilirubin 1.5 H GGT 124 H Alkaline Phosphatase Troponin T C-Reactive Protein Total Protein 5.2 L Albumin 1.7 L Globulin Albumin/Globulin Ratio 0.5 L Urine Protein Trace A Urine Glucose (UA) >=1000 mg/dl A Urine Occult Blood Trace-intact A Hyaline Casts 8 H 05/06/20 05/06/20 05/06/20 11:48 11:48 11:48 WBC 13.4 H RBC 2.41 L Hgb 8.4 L Hct 25.1 L MCV 104.1 H MCH 34.9 H MPV 11.1 H Neut % (Auto) 92.9 H Lymph % (Auto) 4.0 L Lymph # (Auto) 0.54 L Absolute Neutrophils 12.42 H ESR 122 H Sodium 122 L Potassium Chloride 86 L BUN 77 H Creatinine 1.8 H POC Creatinine 1.5 H Glucose 651 H* Uric Acid Calcium Phosphorus Magnesium Total Bilirubin 3.4 H Direct Bilirubin GGT Alkaline Phosphatase 139 H Troponin T 0.03 H C-Reactive Protein 23.90 H Total Protein Albumin 2.4 L Globulin 4.3 H Albumin/Globulin Ratio 0.6 L Urine Protein Urine Glucose (UA) Urine Occult Blood Hyaline Casts 05/06/20 00:05 WBC RBC Hgb Hct MCV MCH MPV Neut % (Auto) Lymph % (Auto) Lymph # (Auto) Absolute Neutrophils ESR Sodium 132 L Potassium 3.1 L Chloride BUN 72 H Creatinine 1.5 H POC Creatinine Glucose 54 L Uric Acid 8.9 H Calcium 8.2 L Phosphorus 2.0 L Magnesium 1.2 L Total Bilirubin 1.8 H Direct Bilirubin 1.6 H GGT 131 H Alkaline Phosphatase Troponin T C-Reactive Protein Total Protein 5.4 L Albumin 1.8 L Globulin Albumin/Globulin Ratio 0.5 L Urine Protein Urine Glucose (UA) Urine Occult Blood Hyaline Casts Meds: Medications Acetaminophen (Acetaminophen 325 Mg Tablet) 650 mg PO Q4-6HP PRN; Protocol PRN Reason: Per Pain Protocol/Fever > 101 Bisacodyl (Bisacodyl 10 Mg Supp.Rect) [address] Q2-3DAYS PRN PRN Reason: Constipation Cefepime HCl (Cefepime 2 Gm Vial) 2 gm IV Q12H [facility]; Protocol Last Admin: 05/07/20 09:39 Dose: 2 gm Documented by: Cyanocobalamin (Cyanocobalamin (Vitamin B-12) 500 Mcg Tablet) 1,000 mcg PO BID [facility] Stop: 05/11/20 09:01 Last Admin: 05/07/20 09:36 Dose: Not Given Documented by: Dextrose (Dextrose 50% 50 Ml Vial) 0 ml IV UD PRN PRN Reason: Hypoglycemia Last Admin: 05/07/20 03:10 Dose: 25 ml Documented by: Diagnostic Test (Pha) (Accu-Chek 1 Each Strip) 1 each FS ACHS [facility] Last Admin: 05/07/20 10:57 Dose: 1 each Documented by: Docusate Sodium (Docusate Sodium 100 Mg Capsule) 100 mg PO BID [facility] Last Admin: 05/07/20 09:36 Dose: Not Given Documented by: Gabapentin (Gabapentin 300 Mg Capsule) 300 mg PO BID [facility] Last Admin: 05/07/20 09:36 Dose: Not Given Documented by: Glucose (Dextrose 31 Gm Oral.Susp) 15 gm PO PRN PRN PRN Reason: Hypoglycemia Guaifenesin/Codeine Phosphate (Guaifenesin/Codeine 10 Ml Udc) 10 ml PO Q4HP PRN PRN Reason: Cough Heparin Sodium (Porcine) (Heparin 5,000 Unit/Ml Vial) 5,000 unit SQ Q12 [facility] Last Admin: 05/07/20 09:37 Dose: Not Given Documented by: Hydromorphone HCl (Hydromorphone 0.5 Mg/0.5 Ml Syringe) 0.25 - 0.5 mg IV Q4HP PRN; Protocol PRN Reason: Per Pain Protocol Potassium Chloride 40 meq/ (Dextrose) 520 mls @ 130 mls/hr IV UD PRN PRN Reason: K+ = or < 3.5 Last Admin: 05/07/20 04:16 Dose: 130 mls/hr Documented by: Magnesium Sulfate (Magnesium Sulfate) 2 gm in 50 mls @ 50 mls/hr IV UD PRN PRN Reason: MG = or < 1.7 Last Admin: 05/07/20 08:00 Dose: 50 mls/hr Documented by: Acetaminophen (Ofirmev) 650 mg in 65 mls @ 130 mls/hr IV Q6HP PRN; Protocol PRN Reason: Per Pain Protocol/Fever > 101 Sodium Chloride (Sodium Chloride 0.9%) 1,000 mls @ 0 mls/hr IV BOLUS [facility] Last Infusion: 05/06/20 19:39 Dose: Infused Documented by: Insulin Human Regular 50 unit/ (Sodium Chloride) 100 mls @ 2 mls/hr IV DUR [facility]; Protocol Last Titration: 05/07/20 05:30 Dose: 0 unit/hr, 0 mls/hr Documented by: Sodium Chloride (Sodium Chloride 0.9%) 250 mls @ 20 mls/hr IV .[id number] [facility] Last Admin: 05/07/20 07:54 Dose: Not Given Documented by: Vancomycin HCl 1,500 mg/ (Sodium Chloride) 500 mls @ 333.3 mls/hr IV Q24H [facility] Last Admin: 05/07/20 09:40 Dose: 333.3 mls/hr Documented by: Dextrose/Sodium Chloride (Dextrose 5%-Ns Iv Solution) 1,000 mls @ 50 mls/hr IV .Q20H [facility] Last Admin: 05/06/20 22:15 Dose: 50 mls/hr Documented by: Sodium Chloride (Sodium Chloride 0.9%) 250 mls @ 20 mls/hr IV .[id number] [facility] Stop: 05/07/20 19:59 Last Admin: 05/07/20 10:55 Dose: 20 mls/hr Documented by: Clindamycin Phosphate 600 mg/ (Dextrose) 54 mls @ 100 mls/hr IV Q8H [facility] Last Infusion: 05/07/20 12:00 Dose: Infused Documented by: Insulin Human Lispro (Insulin Lispro 1 Unit/0.01 Ml Unit) 0 unit SQ ACHS [facility]; Protocol Last Admin: 05/07/20 10:57 Dose: Not Given Documented by: Iron Carb/Multivit/Long/Folic Acid (Multivit,Ther Iron,Ca,Fa & Min 1 Tablet) 1 tab PO DAILY [facility] Last Admin: 05/07/20 09:36 Dose: Not Given Documented by: Melatonin (Melatonin 3 Mg Tablet) 3 mg PO HSP PRN PRN Reason: Insomnia Ondansetron HCl (Ondansetron 4 Mg Odt Tablet) 4 mg SL Q4-6HP PRN; Protocol PRN Reason: Nausea And Vomiting Ondansetron HCl (Ondansetron 4 Mg/2 Ml Vial) 4 mg IV Q4-6HP PRN; Protocol PRN Reason: Nausea And Vomiting Senna/Docusate Sodium (Sennosides/Docusate Sodium 1 Tab Tablet) 1 tab PO [facility] Last Admin: 05/06/20 20:23 Dose: Not Given Documented by: Sitagliptin Phosphate (Sitagliptin 100 Mg Tablet) 100 mg PO DAILY [facility] Last Admin: 05/07/20 09:36 Dose: Not Given Documented by: Sodium Chloride (0.9 % Sodium Chloride 10 Ml Syringe) 10 ml IV Q8 [facility] Last Admin: 05/07/20 05:33 Dose: Not Given Documented by: Thiamine HCl (Thiamine 100 Mg Tablet) 100 mg PO DAILY [facility] Last Admin: 05/07/20 09:36 Dose: Not Given Documented by: Vancomycin HCl (Vancomycin Per Pharmacy) 1 order IV UD [facility]; Protocol A/P Narrative A/P Narrative: * Necrotizing left lower extremity cellulitis/soft tissue infection with gangrenous change suspected gas-forming organism. Continuing broad-spectrum antibiotic coverage/cultures/orthopedic consult for surgical evaluation. Surgery recommends amputation however patient refused. Will undergo debridement by podiatry. Very high risk mortality * Hyperosmolar hyper glycemic nonketotic state-improved on insulin drip. * Severe sepsis with endorgan dysfunction including acute kidney injury/elevated bilirubin and acute mental status change. Broad antibiotic coverage/aranda cultures/aggressive management per guidelines * Acute mental status change secondary to sepsis induced toxic encephalopathy/sepsis endorgan dysfunction. * Acute renal failure-secondary to severe sepsis endorgan dysfunction. Creatinine improving now 1.6 * Anemia-transfuse 2 units PRBC, hemoglobin 6.6 * History of hypertension-hold antihypertensives * DM type II-currently on insulin drip * Prophylaxis Heparin * Plan * 2 units PRBC * Insulin drip * Crystalloids and electrolyte replacement * Broad spectrum antibiotic coverage including cefepime/clindamycin/vancomycin * Orthopedic and infectious disease consult * Wound care/podiatry consult * Pre-existing medical condition management on home meds * Very high risk mortality Critical time spent in excess of 35 minutes in addition to time spent on history and physical Time Spent With Patient Time: Total time spent is greater than 50% in coordination of care (as documented) at patient's floor/unit and/or counseling patient: QUALITY VTE Deep Vein Thrombosis/Pulmonary Embolism Present on Admission: No
[2020-05-07] MEDS ORDERED: LACTATED RINGERS 1,000 ML IV SCH (13:45)
[2020-05-07] MEDS: 0.9 % SODIUM CHLORIDE 1,000 ML IV SCH ×2 (16:28→17:48)
[2020-05-07] MEDS: DEXTROSE 5%-NS 1,000 ML IV SCH (17:33)
--- NOTE | 2020-05-07 17:39 | Infectious Disease Consult ---
HPI Data of Consult Primary Care Provider: Hayes Issa DO Consult Narrative Patient Information: Note initiated : 05/07/20 at 5:25 pm Service Date, if different from initiated Date: [] Patient: Frantz Johnston 70 y/o M admitted on 05/06/20 for weakness in legs. Chief Complaint: [] Frantz is a 70-year-old diabetic who was admitted into the hospital yesterday for severe cellulitis of the left lower extremity. Photos observed of necrotic eschar over a large part of the left heel. I am not able to interview him. He is sedated following return from the OR in recovery room. He was taken to the operating room by Dr. Isaac Pierre podiatry for debridement, incision and drainage. A CT scan completed yesterday with runoff identified gas in the left foot calf subcutaneous tissue and fascia. He has been started on cefepime vancomycin and clindamycin. He has had diabetes since 2003. He was evaluated by orthopedist Dr. Spencer yesterday and lead systems analyst Dr. Pierre today. Both recommended below the knee amputation but patient has declined,. Blood cultures are positive for gram-positive cocci from yesterday. He has an allergy to penicillin. He has tolerated cefepime. His admit white count was 13.4 with H&H 8/25 and sed rate 122. MCV 104. Evidently, he does have a history of alcohol use. His admit creatinine was 1.8. cc:: CC: Reji Almonte Review of Systems Review of systems: Unable to obtain history from patient or review of systems. All of my information obtained from the chart. PFSH PFSH All Active Problems (Updated 05/07/20 @ 17:39 by Donn Rodriguez MD) Bacteremia (Acute) Gangrene (Acute) Near syncope (Acute) Weakness (Acute) Diabetic ulcer of laughlin (Acute) Diabetic peripheral neuropathy (Chronic) Right knee pain (Acute) HTN (hypertension) (Chronic) Foot ulcer due to secondary DM (Acute) Tobacco abuse (Chronic) Blind left eye (Chronic ~1968) Lung disease (Chronic) DMII (diabetes mellitus, type 2) (Chronic ~2003) Medical History (Updated 05/07/20 @ 17:39 by Donn Rodriguez MD) Blind left eye (~1968) DMII (diabetes mellitus, type 2) (~2003) Hyperglycemia on admit with acute kidney injury, anemia. Further recommen dations to follow regarding antibiotic will depend on culture results and wound appearance. Recommendations #1 maintain Vanco, Clinda, and cefepime at this time. 2. Obtain follow-up blood cultures tomorrow. 3. Follow-up on identification of bacteria on blood culture and wound cultures. Thank you very much. Lung disease Tobacco abuse Surgical History H/O colonoscopy (~1999) H/O eye surgery (~1968) Blind in left eye Family History Mother Dementia Social History marital status: smoking status: Current every day smoker tobacco type: cigarettes alcohol intake frequency: 0-2 drinks per day substance use type: does not use MEDS/ALLERGIES Home Medications and Allergies Home Medications Medication Instructions Recorded Confirmed Type blood sugar diagnostic #100 each 01/26/17 05/06/20 Rx pen needle, diabetic 31 gauge x #100 each 04/27/17 05/06/20 Rx 3/16" losartan 100 1 tab PO QDAY #90 tab 03/26/20 05/06/20 Rx mg-hydrochlorothiazide 25 mg tablet blood pressure test kit-large #1 ea 04/16/20 05/06/20 Rx gabapentin 300 mg capsule 300 mg PO BID #180 cap 04/16/20 05/06/20 Rx metformin 1,000 mg PO BID 05/06/20 05/06/20 History Allergies Allergy/AdvReac Type Severity Reaction Status Date / Time Penicillins Allergy Severe Difficulty Verified 05/06/20 19:10 Breathing Physical Examination Vital Signs Vital signs: Temp Pulse Resp BP Pulse Ox 96.2 F L 74 13 130/77 98 05/07/20 17:17 05/07/20 17:17 05/07/20 17:17 05/07/20 17:16 05/07/20 17:17 Additional Exam Additional exam: General: I saw him in an ICU bed. He was sleeping. I did not awaken him from sleep. He is on CPAP. HEENT: No facial rash. Lungs: Clear anteriorly. Heart: Irregularly irregular without murmur. Abdomen soft. Extremities: He has an Oumar wrap on the left lower extremity. He has heel protection bilaterally. He has onychomycosis. I did not remove the Oumar wrap from the left lower extremity. I did observe an anterior ankle ulceration approximately 4 cm x 2 cm. No foot erythema on the right foot. Results Laboratory Findings CBC and BMP: 05/07/20 05:23 05/07/20 05:23 Abnormal lab findings: Abnormal Labs 05/06/20 05/06/20 05/06/20 00:05 11:48 11:48 WBC 13.4 H RBC 2.41 L Hgb 8.4 L Hct 25.1 L MCV 104.1 H MCH 34.9 H MPV 11.1 H Neut % (Auto) 92.9 H Lymph % (Auto) 4.0 L Lymph # (Auto) 0.54 L Absolute Neutrophils 12.42 H ESR 122 H Sodium 132 L 122 L Potassium 3.1 L Chloride 86 L BUN 72 H 77 H Creatinine 1.5 H 1.8 H POC Creatinine 1.5 H Glucose 54 L 651 H* Uric Acid 8.9 H Calcium 8.2 L Phosphorus 2.0 L Magnesium 1.2 L Total Bilirubin 1.8 H 3.4 H Direct Bilirubin 1.6 H GGT 131 H Alkaline Phosphatase 139 H Troponin T C-Reactive Protein 23.90 H Total Protein 5.4 L Albumin 1.8 L 2.4 L Globulin 4.3 H Albumin/Globulin Ratio 0.5 L 0.6 L Urine Protein Urine Glucose (UA) Urine Occult Blood Hyaline Casts 05/06/20 05/06/20 05/07/20 11:48 16:42 05:23 WBC RBC 1.93 L Hgb 6.6 L* Hct 19.4 L* MCV 100.5 H MCH 34.2 H MPV 10.8 H Neut % (Auto) 85.5 H Lymph % (Auto) 8.9 L Lymph # (Auto) 0.94 L Absolute Neutrophils 9.07 H ESR Sodium Potassium Chloride BUN Creatinine POC Creatinine Glucose Uric Acid Calcium Phosphorus Magnesium Total Bilirubin Direct Bilirubin GGT Alkaline Phosphatase Troponin T 0.03 H C-Reactive Protein Total Protein Albumin Globulin Albumin/Globulin Ratio Urine Protein Trace A Urine Glucose (UA) >=1000 mg/dl A Urine Occult Blood Trace-intact A Hyaline Casts 8 H 05/07/20 05:23 WBC RBC Hgb Hct MCV MCH MPV Neut % (Auto) Lymph % (Auto) Lymph # (Auto) Absolute Neutrophils ESR Sodium Potassium Chloride BUN 72 H Creatinine 1.6 H POC Creatinine Glucose 136 H Uric Acid 9.3 H Calcium 8.1 L Phosphorus 2.2 L Magnesium Total Bilirubin 1.8 H Direct Bilirubin 1.5 H GGT 124 H Alkaline Phosphatase Troponin T C-Reactive Protein Total Protein 5.2 L Albumin 1.7 L Globulin Albumin/Globulin Ratio 0.5 L Urine Protein Urine Glucose (UA) Urine Occult Blood Hyaline Casts Microbiology: Microbiology 05/06/20 11:48 Blood Blood Culture - Preliminary Gram positive cocci 05/06/20 12:07 Blood Blood Culture - Preliminary Gram positive cocci May 06 blood cultures positive for gram-positive cocci. H&H 6.6/19.4 today. He received transfusion. Creatinine down to 1.6 today. A/P Assessment and plan (1) Bacteremia: Status: Acute Comment: Frantz is a 70-year-old poorly controlled diabetic who was admitted yesterday with a glucose of 651 and creatinine of 1.8. Blood cultures positive for gram- positive cocci originating from severe infection involving the left lower extremity. He is postop day zero incision and drainage of necrotic ulcer on the left heel. He had soft tissue gas identified on CT scan. Infection likely polymicrobial. He remains on broad-spectrum therapy appropriately with cefepime vancomycin and clindamycin. It will be important to follow-up on final identification of positive blood culture. I would recommend surveillance repeat blood cultures tomorrow to make sure bacteremia clears. (2) Gangrene: Status: Acute Comment: Patient has evidently previously refused BKA although that was both recommended by orthopedic and podiatry. Continue to educate patient on clinical course of severe problem. (3) Diabetic ulcer of laughlin: Status: Acute Comment: Right anterior ankle with ulceration. Appears to be stage III. (4) DMII (diabetes mellitus, type 2): Status: Chronic Comment: Hyperglycemia on admit with acute kidney injury, anemia. Further recommendations to follow regarding antibiotic will depend on culture results and wound appearance. Recommendations #1 maintain Vanco, Clinda, and cefepime at this time. 2. Obtain follow-up blood cultures tomorrow. 3. Follow-up on identification of bacteria on blood culture and wound cultures. Thank you very much. Qualifiers: Diabetes mellitus long term acute care registered nurse insulin use: unspecified long term acute care registered nurse insulin use status Diabetes mellitus complication status: with skin complications Time Spent With Patient Time: Total time spent is greater than 50% in coordination of care (as documented) at patient's floor/unit and/or counseling patient:
[2020-05-07] MEDS ORDERED: ONDANSETRON 4 MG/2 ML VIAL ONE (17:50)
[2020-05-07] MEDS ORDERED: fentaNYL 100 MCG/2 ML VIAL IV ONE (17:50)
[2020-05-07] MEDS ORDERED: DEXAMETHASONE 10 MG/ML VIAL ONE (17:50)
[2020-05-07] MEDS ORDERED: PROPOFOL 200 MG/20 ML VIAL IV ONE (17:50)
[2020-05-07] MEDS ORDERED: LIDOCAINE HCL/PF 100 MG/5 ML SYRINGE IV ONE (17:50)
[2020-05-07] MEDS ORDERED: SUCCINYLCHOLINE 20 MG/ML ML IV ONE (17:50)
[2020-05-07] MEDS ORDERED: KETAMINE 100 MG/ML ML ONE (17:50)
[2020-05-07] MEDS ORDERED: GLYCOPYRROLATE 0.2 MG/ML VIAL IV ONE (17:50)
[2020-05-07] MEDS ORDERED: MAGNESIUM SULFATE 2 GM/50 ML BAG IV ONE (17:50)
[2020-05-07] MEDS ORDERED: PHENYLEPHRINE 10 MG/ML VIAL ONE (17:50)
[2020-05-07] MEDS: SENNOSIDES/DOCUSATE SODIUM 1 TAB TABLET PO SCH (21:18)
[2020-05-07] MEDS ORDERED: CLINDAMYCIN 600 MG/4 ML VIAL ONE (22:13)
[2020-05-08] MEDS: CLINDAMYCIN 600 MG in DEXTROSE 5% IN WATER 50 ML IV SCH ×3 (05:25→22:20)
[2020-05-08] MEDS: 0.9 % SODIUM CHLORIDE 10 ML SYRINGE IV SCH ×3 (05:25→22:42)
[2020-05-08] MEDS: 0.9 % SODIUM CHLORIDE 250 ML IV SCH ×2 (07:32→20:33)
[2020-05-08] MEDS: INSULIN LISPRO 1 UNIT/0.01 ML UNIT SQ SCH ×5 (07:32→23:19)
[2020-05-08 08:02] LABS: Basophils # (Auto) 0.02 K/mcL (0.00-0.20); Basophils % (Auto) 0.2 % (0.0-2.0); Eosinophils # (Auto) 0 K/mcL (0.00-0.70); Eosinophils % (Auto) 0 % (0.0-7.0); Hemoglobin 9.9 g/dL (13.5-16.5); Lymphocytes # (Auto) 0.67 K/mcL (1.50-4.80); Lymphocytes % (Auto) 5.2 % (15.0-49.0); Mean Cell Volume 100.7 fL (80.0-100.0); Mean Platelet Volume 11.4 fL (7.4-10.4); Monocytes # (Auto) 0.38 K/mcL (0.10-0.90); Monocytes % (Auto) 2.9 % (1.0-12.0); Neutrophils % (Auto) 91.7 % (38.0-78.0); Platelet Count 190 K/mcL (140-440); RBC 2.98 M/mcL (4.50-5.90); Red Cell Distribution Width 16.2 % (11.5-14.5); WBC 12.9 K/mcL (4.5-11.0)
[2020-05-08 08:27] LABS: ALT/SGPT 14 U/L (<40); AST/SGOT 23 U/L (<40); Albumin 1.8 gm/dL (3.2-5.2); Albumin/Globulin Ratio 0.4 (1.0-2.3); Alkaline Phosphatase 120 U/L (39-117); Bilirubin,Direct 2.4 mg/dL (<0.3); Bilirubin,Total 2.6 mg/dL (0.1-1.0); Blood Urea Nitrogen 79 mg/dL (8-23); Calcium 8.5 mg/dL (8.6-10.4); Carbon Dioxide 17 mmol/L (22-30); Chloride 99 mmol/L (96-108); Globulin 4.3 gm/dL (2.2-3.7); Glomerular Filtration Rate 43; Glucose 300 mg/dL (70-105); Lactate Dehydrogenase 185 U/L (135-225); Phosphorous 4.9 mg/dL (2.5-4.5); Triglycerides 132 mg/dL (<150); Uric Acid 11.1 mg/dL (2.5-8.0)
--- NOTE | 2020-05-08 08:58 | XRay Report ---
HISTORY: Atelectasis, leg weakness, evaluate for interval change FINDINGS: Linear bands of discoid atelectasis are present in both lower lobes. These are unchanged from 05/06/20. A vague haziness is developing in the lung parenchyma in the right lower lobe and behind the left heart border. These are new since the prior chest x-ray. There is no lobar consolidation. The mid and upper lung gastelum are clear. No pleural effusion is present. The heart size is normal. Impression: mild alveolar opacities developing in both lower lobes which may be related to atelectasis or early pneumonia Interpreted and Authenticated by: Nestor Adair 05/08/20
[2020-05-08] MEDS: CEFEPIME 2 GM VIAL IV SCH ×2 (09:31→20:14)
[2020-05-08] MEDS: CYANOCOBALAMIN (VITAMIN B-12) 500 MCG TABLET PO SCH ×2 (09:31→21:14)
[2020-05-08] MEDS: GABAPENTIN 300 MG CAPSULE PO SCH ×2 (09:31→21:14)
[2020-05-08] MEDS: DOCUSATE SODIUM 100 MG CAPSULE PO SCH ×2 (09:31→21:14)
[2020-05-08] MEDS: MULTIVIT,THER IRON,CA,FA & MIN 1 TABLET PO SCH (09:31)
[2020-05-08] MEDS: HEPARIN 5,000 UNIT/ML VIAL SQ SCH ×2 (09:31→21:13)
[2020-05-08] MEDS: THIAMINE 100 MG TABLET PO SCH (09:31)
[2020-05-08] MEDS: sitaGLIPtin 100 MG TABLET PO SCH (09:34)
[2020-05-08] MEDS: VANCOMYCIN 1,500 MG in 0.9 % SODIUM CHLORIDE 500 ML IV SCH (10:18)
[2020-05-08] MEDS: INSULIN GLARGINE, HUMAN 1 UNIT/0.01 ML SQ SCH ×2 (10:25→10:26)
--- NOTE | 2020-05-08 10:36 | Internal Med Progress Note ---
SUBJECTIVE Subjective Patient information: Note initiated : 05/08/20 at 10:32 am Service Date, if different from initiated Date: [] Patient: Frantz Johnston 70 y/o M admitted on 05/06/20 for weakness in legs. Chief Complaint: [] Interval history: Mr. Johnston is a 70 year old M with a history of poorly controlled diabetes/lower extremity diabetic wound who presents to the ER due to worsening lower extremity weakness/confusion/inability to take care of self. Patient also has not been able to bear weight or walk for the last few days. He lives alone at [place] and has been medically helpless over the last few days. He frequently sees wound care but was unable to change dressings. He complains of putrid foul-smelling odor with redness tenderness extending up to the lower thighs. He denied associated fever or chills but has been getting confused and lightheaded. Initial work-up in the ER was consistent with hyperosmolar nonketotic state with blood sugars in 600/acute kidney injury/gangrenous changes left lower extremity and bilateral lower extremity cellulitis. Patient was started on antibiotic coverage after cultures were drawn along with insulin drip and crystalloids. Orthopedic was consulted for possible surgical evaluation and amputation. He underwent CT runoff abdomen along with lower extremity that reveals extensive cellulitis in the left foot and gas and subcutaneous fat and fascia. Also cellulitis right lower extremity noted. Hospitalist service was consulted in light of above At the time of evaluation patient is very anxious/confused/unable to provide a detailed history but was able to endorse review of systems. Patient is very lethargic and confused. No family members present. Most of the history was ob tained from review of medical records and ED physician. Patient was able to provide a very limited history. He has not been able to change his dressings recently that has led to worsening wounds. He is however reluctant for surgical intervention but his understanding of the severity of necrotizing infection may be limited due to mental status change due to sepsis induced toxic encephalopathy. 05/07-patient critically ill with gangrenous changes left lower extremity along with cellulitis. On broad antibiotic coverage. On insulin drip for HSM today. Hemoglobin 6.8 on 2 units blood transfusion. Remains critically ill. Patient continues to refuse surgical amputation advised by orthopedics. Will likely undergo debridement. Podiatry on board. White count 10.6, hemoglobin 6.6, glucose improved to 136, creatinine 1.6, phosphorus 2.2, bilirubin downtrending at 1.8. -05/07 4 PM . discussed case with anesthesia post surgery. Patient profoundly hypoxic following extubation after debridement irrigation procedure. Patient was started on BiPAP at PACU. Patient was transferred and received in ICU on BiPAP. Stat ABGs not available due to heart state. However patient currently on 40% FiO2. Family members were informed by anesthesia about the critical nature of illness. Patient will be monitored closely and will be intubated if necessary and if evidence of worsening respiratory failure 05/08 patient overnight on BiPAP. More lucid alert this morning. Trial off BiPAP, tolerating well. Stable hemodynamics. Postop dressing. White count 12.9. Hemoglobin improved to 9.9 following units PRBC transfusion, sodium 129, potassium 5.4 likely secondary to hemolysis posttransfusion, continue monitoring, creatinine 1.6, blood sugar 300 started on basal insulin, bilirubin 2.4 Constitutional Vitals: Vital Signs Temp Pulse Resp BP Pulse Ox 97.9 F 72 21 125/65 98 05/08/20 10:30 05/08/20 10:30 05/08/20 10:30 05/08/20 10:00 05/08/20 10:30 Period Temp Pulse Resp BP Sys/Anderson Pulse Ox Last 24 Hr 96.1 F-98.9 F 60-123 11-27 97-155/56-135 73-100 Intake and Output 05/07/20 05/08/20 05/08/20 21:59 05:59 13:59 Intake Total 1547 54 54 Output Total 25 200 Balance 1522 -146 54 Weight 91.716 kg Alert and respond to commands Off noninvasive ventilation Bilateral lower extremity in dressing/pneumatic boot No anxiety Intake & Output: Intake & Output 05/07/20 05/08/20 05/08/20 21:59 05:59 13:59 Intake Total 1547 54 54 Output Total 25 200 Balance 1522 -146 54 Weight 91.716 kg Intake: IV 1247 54 54 Sodium Chloride 0.9% 1,000 ml @ 1000 50 mls/hr IV .Q20H [facility] Rx#: [id number] Sodium Chloride 0.9% 250 ml @ 137 20 mls/hr IV .[id number] [facility] Rx#: [id number] Cleocin 600 mg In Dextrose 5% 54 54 in Water 50 ml @ 100 mls/hr IV Q8H [facility] Rx#:[id number] Dextrose 5%-Ns IV Solution 1, 10 000 ml @ 50 mls/hr IV .Q20H [facility] Rx#:[id number] IV - Manual Only 300 Output: Urine Catheter Amount 200 Void Amount 25 Other: Urine Appearance Clear Clear Uretheral (Verdugo) Clear Clear Clear Urine Color Dark Asia Dark Asia Bright Yellow Uretheral (Verdugo) Dark Asia Dark Asia Bright Yellow Urine Odor Strong Strong OBJ DATA Labs CBC & Chem 7: 05/08/20 06:15 05/08/20 06:15 Labs: Abnormal Lab Results 05/08/20 05/08/20 05/08/20 08:06 06:15 06:15 WBC 12.9 H RBC 2.98 L Hgb 9.9 L Hct 30.0 L MCV 100.7 H MCH RDW 16.2 H MPV 11.4 H Neut % (Auto) 91.7 H Lymph % (Auto) 5.2 L Lymph # (Auto) 0.67 L Absolute Neutrophils 11.86 H ESR Sodium 129 L Potassium 5.4 H Chloride Carbon Dioxide 17 L BUN 79 H Creatinine 1.6 H POC Creatinine Glucose 300 H Uric Acid 11.1 H Calcium 8.5 L Phosphorus 4.9 H Magnesium Total Bilirubin 2.6 H Direct Bilirubin 2.4 H GGT 131 H Alkaline Phosphatase 120 H Troponin T C-Reactive Protein Total Protein Albumin 1.8 L Globulin 4.3 H Albumin/Globulin Ratio 0.4 L Urine Protein Urine Glucose (UA) Urine Occult Blood Hyaline Casts Vancomycin Trough 21.9 H* 05/07/20 05/07/20 05/06/20 05:23 05:23 16:42 WBC RBC 1.93 L Hgb 6.6 L* Hct 19.4 L* MCV 100.5 H MCH 34.2 H RDW MPV 10.8 H Neut % (Auto) 85.5 H Lymph % (Auto) 8.9 L Lymph # (Auto) 0.94 L Absolute Neutrophils 9.07 H ESR Sodium Potassium Chloride Carbon Dioxide BUN 72 H Creatinine 1.6 H POC Creatinine Glucose 136 H Uric Acid 9.3 H Calcium 8.1 L Phosphorus 2.2 L Magnesium Total Bilirubin 1.8 H Direct Bilirubin 1.5 H GGT 124 H Alkaline Phosphatase Troponin T C-Reactive Protein Total Protein 5.2 L Albumin 1.7 L Globulin Albumin/Globulin Ratio 0.5 L Urine Protein Trace A Urine Glucose (UA) >=1000 mg/dl A Urine Occult Blood Trace-intact A Hyaline Casts 8 H Vancomycin Trough 05/06/20 05/06/20 05/06/20 11:48 11:48 11:48 WBC 13.4 H RBC 2.41 L Hgb 8.4 L Hct 25.1 L MCV 104.1 H MCH 34.9 H RDW MPV 11.1 H Neut % (Auto) 92.9 H Lymph % (Auto) 4.0 L Lymph # (Auto) 0.54 L Absolute Neutrophils 12.42 H ESR 122 H Sodium 122 L Potassium Chloride 86 L Carbon Dioxide BUN 77 H Creatinine 1.8 H POC Creatinine 1.5 H Glucose 651 H* Uric Acid Calcium Phosphorus Magnesium Total Bilirubin 3.4 H Direct Bilirubin GGT Alkaline Phosphatase 139 H Troponin T 0.03 H C-Reactive Protein 23.90 H Total Protein Albumin 2.4 L Globulin 4.3 H Albumin/Globulin Ratio 0.6 L Urine Protein Urine Glucose (UA) Urine Occult Blood Hyaline Casts Vancomycin Trough 05/06/20 00:05 WBC RBC Hgb Hct MCV MCH RDW MPV Neut % (Auto) Lymph % (Auto) Lymph # (Auto) Absolute Neutrophils ESR Sodium 132 L Potassium 3.1 L Chloride Carbon Dioxide BUN 72 H Creatinine 1.5 H POC Creatinine Glucose 54 L Uric Acid 8.9 H Calcium 8.2 L Phosphorus 2.0 L Magnesium 1.2 L Total Bilirubin 1.8 H Direct Bilirubin 1.6 H GGT 131 H Alkaline Phosphatase Troponin T C-Reactive Protein Total Protein 5.4 L Albumin 1.8 L Globulin Albumin/Globulin Ratio 0.5 L Urine Protein Urine Glucose (UA) Urine Occult Blood Hyaline Casts Vancomycin Trough Meds: Medications Acetaminophen (Acetaminophen 325 Mg Tablet) 650 mg PO Q4-6HP PRN; Protocol PRN Reason: Per Pain Protocol/Fever > 101 Bisacodyl (Bisacodyl 10 Mg Supp.Rect) 10 mg NC Q2-3DAYS PRN PRN Reason: Constipation Cefepime HCl (Cefepime 2 Gm Vial) 2 gm IV Q12H [facility]; Protocol Last Admin: 05/08/20 09:31 Dose: 2 gm Documented by: Cyanocobalamin (Cyanocobalamin (Vitamin B-12) 500 Mcg Tablet) 1,000 mcg PO BID [facility] Stop: 05/11/20 09:01 Last Admin: 05/08/20 09:31 Dose: 1,000 mcg Documented by: Dextrose (Dextrose 50% 50 Ml Vial) 0 ml IV UD PRN PRN Reason: Hypoglycemia Last Admin: 05/07/20 03:10 Dose: 25 ml Documented by: Diagnostic Test (Pha) (Accu-Chek 1 Each Strip) 1 each FS ACHS [facility] Last Admin: 05/08/20 07:32 Dose: 1 each Documented by: Docusate Sodium (Docusate Sodium 100 Mg Capsule) 100 mg PO BID [facility] Last Admin: 05/08/20 09:31 Dose: 100 mg Documented by: Gabapentin (Gabapentin 300 Mg Capsule) 300 mg PO BID [facility] Last Admin: 05/08/20 09:31 Dose: 300 mg Documented by: Glucose (Dextrose 31 Gm Oral.Susp) 15 gm PO PRN PRN PRN Reason: Hypoglycemia Guaifenesin/Codeine Phosphate (Guaifenesin/Codeine 10 Ml Udc) 10 ml PO Q4HP PRN PRN Reason: Cough Heparin Sodium (Porcine) (Heparin 5,000 Unit/Ml Vial) 5,000 unit SQ Q12 [facility] Last Admin: 05/08/20 09:31 Dose: 5,000 unit Documented by: Hydromorphone HCl (Hydromorphone 0.5 Mg/0.5 Ml Syringe) 0.25 - 0.5 mg IV Q4HP PRN; Protocol PRN Reason: Per Pain Protocol Potassium Chloride 40 meq/ (Dextrose) 520 mls @ 130 mls/hr IV UD PRN PRN Reason: K+ = or < 3.5 Last Infusion: 05/07/20 08:20 Dose: Infused Documented by: Magnesium Sulfate (Magnesium Sulfate) 2 gm in 50 mls @ 50 mls/hr IV UD PRN PRN Reason: MG = or < 1.7 Last Infusion: 05/07/20 09:05 Dose: Infused Documented by: Acetaminophen (Ofirmev) 650 mg in 65 mls @ 130 mls/hr IV Q6HP PRN; Protocol PRN Reason: Per Pain Protocol/Fever > 101 Sodium Chloride (Sodium Chloride 0.9%) 1,000 mls @ 0 mls/hr IV BOLUS [facility] Last Admin: 05/07/20 16:28 Dose: Not Given Documented by: Insulin Human Regular 50 unit/ (Sodium Chloride) 100 mls @ 2 mls/hr IV DUR [facility]; Protocol Last Titration: 05/07/20 05:30 Dose: 0 unit/hr, 0 mls/hr Documented by: Sodium Chloride (Sodium Chloride 0.9%) 250 mls @ 20 mls/hr IV .[id number] [facility] Last Admin: 05/08/20 07:32 Dose: Not Given Documented by: Clindamycin Phosphate 600 mg/ (Dextrose) 54 mls @ 100 mls/hr IV Q8H [facility] Last Infusion: 05/08/20 10:19 Dose: Infused Documented by: Sodium Chloride (Sodium Chloride 0.9%) 1,000 mls @ 50 mls/hr IV .Q20H [facility] Last Admin: 05/07/20 17:48 Dose: 50 mls/hr Documented by: Insulin Glargine (Insulin Glargine, Human 1 Unit/0.01 Ml) 10 unit SQ DAILY [facility] Last Admin: 05/08/20 10:26 Dose: Not Given Documented by: Insulin Human Lispro (Insulin Lispro 1 Unit/0.01 Ml Unit) 0 unit SQ ACHS [facility]; Protocol Last Admin: 05/08/20 07:32 Dose: 6 unit Documented by: Iron Carb/Multivit/Gilby/Folic Acid (Multivit,Ther Iron,Ca,Fa & Min 1 Tablet) 1 tab PO DAILY [facility] Last Admin: 05/08/20 09:31 Dose: 1 tab Documented by: Melatonin (Melatonin 3 Mg Tablet) 3 mg PO HSP PRN PRN Reason: Insomnia Ondansetron HCl (Ondansetron 4 Mg Odt Tablet) 4 mg SL Q4-6HP PRN; Protocol PRN Reason: Nausea And Vomiting Ondansetron HCl (Ondansetron 4 Mg/2 Ml Vial) 4 mg IV Q4-6HP PRN; Protocol PRN Reason: Nausea And Vomiting Senna/Docusate Sodium (Sennosides/Docusate Sodium 1 Tab Tablet) 1 tab PO HS [facility] Last Admin: 05/07/20 21:18 Dose: Not Given Documented by: Sitagliptin Phosphate (Sitagliptin 100 Mg Tablet) 100 mg PO DAILY [facility] Last Admin: 05/08/20 09:34 Dose: 100 mg Documented by: Sodium Chloride (0.9 % Sodium Chloride 10 Ml Syringe) 10 ml IV Q8 [facility] Last Admin: 05/08/20 05:25 Dose: Not Given Documented by: Thiamine HCl (Thiamine 100 Mg Tablet) 100 mg PO DAILY [facility] Last Admin: 05/08/20 09:31 Dose: 100 mg Documented by: Vancomycin HCl (Vancomycin Per Pharmacy) 1 order IV UD [facility]; Protocol A/P Assessment and plan (1) Bacteremia: Status: Acute Comment: Frantz is a 70-year-old poorly controlled diabetic who was admitted yesterday with a glucose of 651 and creatinine of 1.8. Blood cultures positive for gram- positive cocci originating from severe infection involving the left lower extremity. He is postop day zero incision and drainage of necrotic ulcer on the left heel. He had soft tissue gas identified on CT scan. Infection likely polymicrobial. He remains on broad-spectrum therapy appropriately with cefepime vancomycin and clindamycin. It will be important to follow-up on final identification of positive blood culture. I would recommend surveillance repeat blood cultures tomorrow to make sure bacteremia clears. (2) Gangrene: Status: Acute Comment: Patient has evidently previously refused BKA although that was both recommended by orthopedic and podiatry. Continue to educate patient on clinical course of severe problem. (3) Diabetic ulcer of [place]: Status: Acute Comment: Right anterior ankle with ulceration. Appears to be stage III. (4) DMII (diabetes mellitus, type 2): Status: Chronic Comment: Hyperglycemia on admit with acute kidney injury, anemia. Further recommendations to follow regarding antibiotic will depend on culture results and wound appearance. Recommendations #1 maintain Vanco, Clinda, and cefepime at this time. 2. Obtain follow-up blood cultures tomorrow. 3. Follow-up on identification of bacteria on blood culture and wound cultures. Thank you very much. Qualifiers: Diabetes mellitus mcc insulin use: unspecified salvage determiner insulin use status Diabetes mellitus complication status: with skin complications Narrative A/P Narrative: * Necrotizing left lower extremity cellulitis/soft tissue infection with gangrenous change suspected gas-forming organism. Continuing broad-spectrum antibiotic coverage/cultures/orthopedic consult for surgical evaluation. Surgery recommends amputation however patient refused. Will undergo debr idement by podiatry. Very high risk mortality * Acute hypoxic respiratory failure overnight on noninvasive ventilation. Now trial off BiPAP. * Hyperosmolar hyper glycemic nonketotic state-improved on insulin drip. Transition to basal insulin/CC diet * Severe sepsis with endorgan dysfunction including acute kidney injury/elevated bilirubin and acute mental status change. Broad antibiotic coverage /pancultures/aggressive management per guidelines * Acute mental status change secondary to sepsis induced toxic encephalopathy/sepsis endorgan dysfunction. * Acute renal failure-secondary to severe sepsis endorgan dysfunction. Creatinine gradually downtrending * Anemia-improved from 6.6-9.9 post 2 units PRBC transfusion * History of hypertension-hold antihypertensives * DM type II-currently on insulin drip * Prophylaxis Heparin * Plan * Basal panel insulin/CC diet * Wound care * Wean BiPAP as tolerated * Broad spectrum antibiotic coverage including cefepime/clindamycin/vancomycin * Pre-existing medical condition management on home meds * Poor long-term prognosis Critical time spent in excess of 35 minutes on management of noninvasive ventilation/severe sepsis Time Spent With Patient Time: Total time spent is greater than 50% in coordination of care (as documented) at patient's floor/unit and/or counseling patient: QUALITY VTE Deep Vein Thrombosis/Pulmonary Embolism Present on Admission: No
[2020-05-08] MEDS: 0.9 % SODIUM CHLORIDE 1,000 ML IV SCH ×2 (14:26→17:27)
[2020-05-08] MEDS: SENNOSIDES/DOCUSATE SODIUM 1 TAB TABLET PO SCH (21:14)
[2020-05-08] MEDS ORDERED: CLINDAMYCIN 600 MG/4 ML VIAL ONE (22:21)
[2020-05-08] MEDS ORDERED: INSULIN GLARGINE, HUMAN 1 UNIT/0.01 ML SQ ONE ×2 (22:45→23:26)
[2020-05-08] MEDS ORDERED: INSULIN LISPRO 1 UNIT/0.01 ML UNIT SQ ONE (23:24)
[2020-05-09] MEDS: CLINDAMYCIN 600 MG in DEXTROSE 5% IN WATER 50 ML IV SCH ×3 (05:33→21:15)
[2020-05-09] MEDS: 0.9 % SODIUM CHLORIDE 10 ML SYRINGE IV SCH ×3 (06:57→21:16)
[2020-05-09 07:16] LABS: Basophils # (Auto) 0.02 K/mcL (0.00-0.20); Basophils % (Auto) 0.2 % (0.0-2.0); Eosinophils # (Auto) 0.09 K/mcL (0.00-0.70); Eosinophils % (Auto) 0.7 % (0.0-7.0); Hemoglobin 9.3 g/dL (13.5-16.5); Lymphocytes # (Auto) 1.29 K/mcL (1.50-4.80); Lymphocytes % (Auto) 10.4 % (15.0-49.0); Mean Cell Volume 98.2 fL (80.0-100.0); Mean Corpuscular HGB Conc 34.4 g/dL (31.0-36.0); Mean Platelet Volume 11.2 fL (7.4-10.4); Monocytes # (Auto) 0.71 K/mcL (0.10-0.90); Monocytes % (Auto) 5.7 % (1.0-12.0); Platelet Count 177 K/mcL (140-440); RBC 2.75 M/mcL (4.50-5.90); Red Cell Distribution Width 15.7 % (11.5-14.5); WBC 12.4 K/mcL (4.5-11.0)
[2020-05-09] MEDS: CEFEPIME 2 GM VIAL IV SCH ×2 (07:37→19:47)
[2020-05-09] MEDS: ACETAMINOPHEN 325 MG TABLET PO PRN ×2 (07:37→15:12)
[2020-05-09] MEDS: INSULIN LISPRO 1 UNIT/0.01 ML UNIT SQ SCH ×4 (07:45→21:15)
[2020-05-09 08:05] LABS: ALT/SGPT 16 U/L (<40); AST/SGOT 27 U/L (<40); Albumin 1.9 gm/dL (3.2-5.2); Albumin/Globulin Ratio 0.5 (1.0-2.3); Alkaline Phosphatase 118 U/L (39-117); Bilirubin,Direct 1.2 mg/dL (<0.3); Bilirubin,Total 1.6 mg/dL (0.1-1.0); Blood Urea Nitrogen 82 mg/dL (8-23); Calcium 8.3 mg/dL (8.6-10.4); Carbon Dioxide 20 mmol/L (22-30); Chloride 99 mmol/L (96-108); Glomerular Filtration Rate 43; Glucose 156 mg/dL (70-105); Lactate Dehydrogenase 150 U/L (135-225); Phosphorous 3.5 mg/dL (2.5-4.5); Triglycerides 136 mg/dL (<150); Uric Acid 10.2 mg/dL (2.5-8.0)
[2020-05-09] MEDS: THIAMINE 100 MG TABLET PO SCH (08:44)
[2020-05-09] MEDS: MULTIVIT,THER IRON,CA,FA & MIN 1 TABLET PO SCH (08:44)
[2020-05-09] MEDS: DOCUSATE SODIUM 100 MG CAPSULE PO SCH ×2 (08:44→21:15)
[2020-05-09] MEDS: HEPARIN 5,000 UNIT/ML VIAL SQ SCH ×2 (08:44→21:16)
[2020-05-09] MEDS: GABAPENTIN 300 MG CAPSULE PO SCH ×2 (08:44→21:15)
[2020-05-09] MEDS: CYANOCOBALAMIN (VITAMIN B-12) 500 MCG TABLET PO SCH ×2 (08:44→21:15)
[2020-05-09] MEDS: sitaGLIPtin 50 MG TABLET PO SCH (08:44)
[2020-05-09] MEDS: INSULIN GLARGINE, HUMAN 1 UNIT/0.01 ML SQ SCH ×2 (08:45→10:15)
[2020-05-09] MEDS: 0.9 % SODIUM CHLORIDE 250 ML IV SCH ×2 (08:47→21:16)
--- NOTE | 2020-05-09 09:02 | Consultation ---
DATE OF CONSULTATION: 05/09/2020 REASON FOR CONSULTATION: This is a 70-year-old diabetic, admitted a few days ago for sepsis and a necrotic left foot. HISTORY OF PRESENT ILLNESS: My history was taken from the patient and mostly from the summaries by the hospitalist service. It is confusing if the patient went to surgery and what was done on Thursday. The patient is unclear and there are no surgical notes in the chart. He still has a very necrotic-looking wound on the bottom of his foot. I do not know if he has had a biopsy of his calcaneus. The question is does he need a [id number] amputation. This was discussed with the patient. PHYSICAL EXAM: Physical exam shows gangrene through most of the sole of the foot and around the heel. The area is malodorous. There is not a palpable abscess in the area. I can feel his pulses. Capillary refill is about 3 seconds. ASSESSMENT: The patient has a necrotic left foot ulcer which is quite large. I do not know if he has osteomyelitis of the calcaneus. I will review his reports if they are available today to make this determination. I do not see a pending pathology report either. The patient probably needs a [id number] amputation but I need some collaboration to discover. The patient will be n.p.o. after midnight tonight, and I will speak with him tomorrow morning. TJF:ruy Job ID: [id number] Doc ID: [id number] Keegan Farrar MD
[2020-05-09] MEDS: VANCOMYCIN 1,500 MG in 0.9 % SODIUM CHLORIDE 500 ML IV SCH (10:16)
[2020-05-09] MEDS: 0.9 % SODIUM CHLORIDE 1,000 ML IV SCH ×2 (10:19→23:53)
--- NOTE | 2020-05-09 11:00 | Brief Operative Note ---
Brief Operative Note Date of procedure: 05/07/20 Pre-op diagnosis: gangrene, left foot Post-op diagnosis: same Procedure: Incision and drainage with debridement left foot Grafts/Implants: No Anesthesia: GETA Complications: none Surgeon: Jorje Pierre Estimated blood loss (cc): 15 Specimens Removed/Pathology: other (culture deep tissue) Condition: critical Disposition: ICU
--- NOTE | 2020-05-09 11:14 | Operative Note ---
DATE OF OPERATION: 05/07/2020 PREOPERATIVE DIAGNOSIS: Gangrene, left foot. POSTOPERATIVE DIAGNOSIS: Gangrene, left foot. PROCEDURE: Incision and drainage with debridement of left foot. SURGEON: Jorje Pierre DPM. IMPLANTS: None. ANESTHESIA: GETA. COMPLICATIONS: None. ESTIMATED BLOOD LOSS: 15 mL. SPECIMEN: Deep tissue culture, left foot. CONDITION: Critical. DISPOSITION: ICU. PROCEDURE IN DETAIL: The patient was transferred to the preoperative holding area, evaluated by Anesthesia, then transferred to the operative room where he was established into a prone position following establishment of general anesthesia. Left lower extremity was scrubbed, prepped, and draped in the usual aseptic fashion. Attention was directed to the left heel where it was noted to be severely gangrenous and necrotic. Purulent discharge was expressed from the medial tarsal tunnel region. The superficial gangrene areas off the calcaneus were debrided. Bone was exposed on the prior plantar aspect of the calcaneus as well as plantar fascia. Deep tissue culture was taken from a deep purulent sample from the medial aspect of the foot and ankle. It was sent for culture and pathological analysis. Area was then irrigated with 3 liters of normal saline with bacitracin under pulse lavage. The area was then dressed with iodine gauze and Oumar wrap in a mildly compressive dressing. The patient transferred to postoperative care unit. Anesthesia was able to discontinue general anesthesia and transfer the patient to the ICU for followup with continued intravenous therapy and daily wound care changes. The patient was advised prior and after surgery that the chances of him retaining this foot are minimal and that he is advised for a below-knee amputation given the severe nature of the infection and possibility for osteomyelitis and lack of soft tissue coverage on the distal aspect of his lower extremity on the left side. PRANAY:ruy Job ID: [id number] Doc ID: [id number] Jorje Pierre DPM
--- NOTE | 2020-05-09 15:05 | Internal Med Progress Note ---
SUBJECTIVE Subjective Patient information: Note initiated : 05/09/20 at 3:03 pm Service Date, if different from initiated Date: [] Patient: Frantz Johnston 70 y/o M admitted on 05/06/20 for weakness in legs. Chief Complaint: [] Interval history: Mr. Johnston is a 70 year old M with a history of poorly controlled diabetes/lower extremity diabetic wound who presents to the ER due to worsening lower extremity weakness/confusion/inability to take care of self. Patient also has not been able to bear weight or walk for the last few days. He lives alone at [place] and has been medically helpless over the last few days. He frequently sees wound care but was unable to change dressings. He complains of putrid foul-smelling odor with redness tenderness extending up to the lower thighs. He denied associated fever or chills but has been getting confused and lightheaded. Initial work-up in the ER was consistent with hyperosmolar nonketotic state with blood sugars in 600/acute kidney injury/gangrenous changes left lower extremity and bilateral lower extremity cellulitis. Patient was started on antibiotic coverage after cultures were drawn along with insulin drip and crystalloids. Orthopedic was consulted for possible surgical evaluation a nd amputation. He underwent CT runoff abdomen along with lower extremity that reveals extensive cellulitis in the left foot and gas and subcutaneous fat and fascia. Also cellulitis right lower extremity noted. Hospitalist service was consulted in light of above At the time of evaluation patient is very anxious/confused/unable to provide a detailed history but was able to endorse review of systems. Patient is very lethargic and confused. No family members present. Most of the history was obt ained from review of medical records and ED physician. Patient was able to provide a very limited history. He has not been able to change his dressings recently that has led to worsening wounds. He is however reluctant for surgical intervention but his understanding of the severity of necrotizing infection may be limited due to mental status change due to sepsis induced toxic encephalopathy. 05/07-patient critically ill with gangrenous changes left lower extremity along with cellulitis. On broad antibiotic coverage. On insulin drip for HSM today. Hemoglobin 6.8 on 2 units blood transfusion. Remains critically ill. Patient continues to refuse surgical amputation advised by orthopedics. Will likely undergo debridement. Podiatry on board. White count 10.6, hemoglobin 6.6, glucose improved to 136, creatinine 1.6, phosphorus 2.2, bilirubin downtrending at 1.8. -05/07 4 PM . discussed case with anesthesia post surgery. Patient profoundly hypoxic following extubation after debridement irrigation procedure. Patient was started on BiPAP at PACU. Patient was transferred and received in ICU on BiPAP. Stat ABGs not available due to heart state. However patient currently on 40% FiO2. Family members were informed by anesthesia about the critical nature of illness. Patient will be monitored closely and will be intubated if necessary and if evidence of worsening respiratory failure 05/08 patient overnight on BiPAP. More lucid alert this morning. Trial off BiPAP, tolerating well. Stable hemodynamics. Postop dressing. White count 12.9. Hemoglobin improved to 9.9 following units PRBC transfusion, sodium 129, potassium 5.4 likely secondary to hemolysis posttransfusion, continue monitoring, creatinine 1.6, blood sugar 300 started on basal insulin, bilirubin 2.4 05/09-patient remains lethargic however improving white count/hemodynamics. Reviewed by orthopedics for consideration of DKA in the setting of necrotic soft tissue infection with gangrene. Creatinine 1.6. On broad-spectrum antibiotic coverage. Blood culture positive enterococci. Surveillance cultures from 05/08 - so far. Constitutional Vitals: Vital Signs Temp Pulse Resp BP Pulse Ox 98.7 F 93 H 18 116/76 94 05/09/20 14:26 05/09/20 14:26 05/09/20 14:26 05/09/20 13:01 05/09/20 14:26 Period Temp Pulse Resp BP Sys/Anderson Pulse Ox Last 24 Hr 36.8 F-98.7 F 73-96 13-30 105-151/53-114 94-100 Intake and Output 05/09/20 05/09/20 05/09/20 05:59 13:59 21:59 Intake Total 414 1794 Output Total 400 225 Balance 14 1569 Lethargic Foul-smelling odor left lower extremity with persistent cellulitis/ulceration at the debridement area Telemetry no events Intake & Output: Intake & Output 05/09/20 05/09/20 05/09/20 05:59 13:59 21:59 Intake Total 414 1794 Output Total 400 225 Balance 14 1569 Intake: IV 54 1554 Sodium Chloride 0.9% 1,000 ml @ 1000 50 mls/hr IV .Q20H [facility] Rx#: [id number] Cleocin 600 mg In Dextrose 5% 54 54 in Water 50 ml @ 100 mls/hr IV Q8H [facility] Rx#:[id number] Vancomycin 1,500 mg In Sodium 500 Chloride 0.9% 500 ml @ 333.3 mls/hr IV Q48H [facility] Rx#: [id number] Oral 360 240 Output: Urine Catheter Amount 400 225 Other: Percent of Meal Consumed 75% Urine Appearance Clear Clear Uretheral ([place]du[place]) Clear Sediment Urine Color Dark Yellow Light Asia Light Asia Uretheral (Verdugo) Light Asia Light Asia Urine Odor Strong OBJ DATA Labs CBC & Chem 7: 05/09/20 05:00 05/09/20 05:51 Labs: Abnormal Lab Results 05/09/20 05/09/20 05/08/20 05:51 05:00 08:06 WBC 12.4 H RBC 2.75 L Hgb 9.3 L Hct 27.0 L MCV MCH RDW 15.7 H MPV 11.2 H Neut % (Auto) 83.0 H Lymph % (Auto) 10.4 L Lymph # (Auto) 1.29 L Absolute Neutrophils 10.26 H Sodium 127 L Potassium Carbon Dioxide 20 L BUN 82 H Creatinine 1.6 H Glucose 156 H Uric Acid 10.2 H Calcium 8.3 L Phosphorus Magnesium Total Bilirubin 1.6 H Direct Bilirubin 1.2 H GGT 162 H Alkaline Phosphatase 118 H Total Protein Albumin 1.9 L Globulin 4.0 H Albumin/Globulin Ratio 0.5 L Urine Protein Urine Glucose (UA) Urine Occult Blood Hyaline Casts Vancomycin Trough 21.9 H* 05/08/20 05/08/20 05/07/20 06:15 06:15 05:23 WBC 12.9 H RBC 2.98 L Hgb 9.9 L Hct 30.0 L MCV 100.7 H MCH RDW 16.2 H MPV 11.4 H Neut % (Auto) 91.7 H Lymph % (Auto) 5.2 L Lymph # (Auto) 0.67 L Absolute Neutrophils 11.86 H Sodium 129 L Potassium 5.4 H Carbon Dioxide 17 L BUN 79 H 72 H Creatinine 1.6 H 1.6 H Glucose 300 H 136 H Uric Acid 11.1 H 9.3 H Calcium 8.5 L 8.1 L Phosphorus 4.9 H 2.2 L Magnesium Total Bilirubin 2.6 H 1.8 H Direct Bilirubin 2.4 H 1.5 H GGT 131 H 124 H Alkaline Phosphatase 120 H Total Protein 5.2 L Albumin 1.8 L 1.7 L Globulin 4.3 H Albumin/Globulin Ratio 0.4 L 0.5 L Urine Protein Urine Glucose (UA) Urine Occult Blood Hyaline Casts Vancomycin Trough 05/07/20 05/06/20 05/06/20 05:23 16:42 00:05 WBC RBC 1.93 L Hgb 6.6 L* Hct 19.4 L* MCV 100.5 H MCH 34.2 H RDW MPV 10.8 H Neut % (Auto) 85.5 H Lymph % (Auto) 8.9 L Lymph # (Auto) 0.94 L Absolute Neutrophils 9.07 H Sodium 132 L Potassium 3.1 L Carbon Dioxide BUN 72 H Creatinine 1.5 H Glucose 54 L Uric Acid 8.9 H Calcium 8.2 L Phosphorus 2.0 L Magnesium 1.2 L Total Bilirubin 1.8 H Direct Bilirubin 1.6 H GGT 131 H Alkaline Phosphatase Total Protein 5.4 L Albumin 1.8 L Globulin Albumin/Globulin Ratio 0.5 L Urine Protein Trace A Urine Glucose (UA) >=1000 mg/dl A Urine Occult Blood Trace-intact A Hyaline Casts 8 H Vancomycin Trough Meds: Medications Acetaminophen (Acetaminophen 325 Mg Tablet) 650 mg PO Q4-6HP PRN; Protocol PRN Reason: Per Pain Protocol/Fever > 101 Last Admin: 05/09/20 07:37 Dose: 650 mg Documented by: Bisacodyl (Bisacodyl 10 Mg Supp.Rect) 10 mg AK Q2-3DAYS PRN PRN Reason: Constipation Cefepime HCl (Cefepime 2 Gm Vial) 2 gm IV Q12H SOL; Protocol Last Admin: 05/09/20 07:37 Dose: 2 gm Documented by: Cyanocobalamin (Cyanocobalamin (Vitamin B-12) 500 Mcg Tablet) 1,000 mcg PO BID SOL Stop: 05/11/20 09:01 Last Admin: 05/09/20 08:44 Dose: 1,000 mcg Documented by: Dextrose (Dextrose 50% 50 Ml Vial) 0 ml IV UD PRN PRN Reason: Hypoglycemia Last Admin: 05/07/20 03:10 Dose: 25 ml Documented by: Diagnostic Test (Pha) (Accu-Chek 1 Each Strip) 1 each FS ACHS [facility] Last Admin: 05/09/20 12:15 Dose: 1 each Documented by: Docusate Sodium (Docusate Sodium 100 Mg Capsule) 100 mg PO BID [facility] Last Admin: 05/09/20 08:44 Dose: 100 mg Documented by: Gabapentin (Gabapentin 300 Mg Capsule) 300 mg PO BID [facility] Last Admin: 05/09/20 08:44 Dose: 300 mg Documented by: Glucose (Dextrose 31 Gm Oral.Susp) 15 gm PO PRN PRN PRN Reason: Hypoglycemia Guaifenesin/Codeine Phosphate (Guaifenesin/Codeine 10 Ml Udc) 10 ml PO Q4HP PRN PRN Reason: Cough Heparin Sodium (Porcine) (Heparin 5,000 Unit/Ml Vial) 5,000 unit SQ Q12 [facility] Last Admin: 05/09/20 08:44 Dose: 5,000 unit Documented by: Hydromorphone HCl (Hydromorphone 0.5 Mg/0.5 Ml Syringe) 0.25 - 0.5 mg IV Q4HP PRN; Protocol PRN Reason: Per Pain Protocol Potassium Chloride 40 meq/ (Dextrose) 520 mls @ 130 mls/hr IV UD PRN PRN Reason: K+ = or < 3.5 Last Infusion: 05/07/20 08:20 Dose: Infused Documented by: Magnesium Sulfate (Magnesium Sulfate) 2 gm in 50 mls @ 50 mls/hr IV UD PRN PRN Reason: MG = or < 1.7 Last Infusion: 05/07/20 09:05 Dose: Infused Documented by: Acetaminophen (Ofirmev) 650 mg in 65 mls @ 130 mls/hr IV Q6HP PRN; Protocol PRN Reason: Per Pain Protocol/Fever > 101 Sodium Chloride (Sodium Chloride 0.9%) 1,000 mls @ 0 mls/hr IV BOLUS [facility] Last Admin: 05/08/20 17:27 Dose: Not Given Documented by: Insulin Human Regular 50 unit/ (Sodium Chloride) 100 mls @ 2 mls/hr IV DUR [facility]; Protocol Last Titration: 05/07/20 05:30 Dose: 0 unit/hr, 0 mls/hr Documented by: Sodium Chloride (Sodium Chloride 0.9%) 250 mls @ 20 mls/hr IV .[id number] [facility] Last Admin: 05/09/20 08:47 Dose: Not Given Documented by: Clindamycin Phosphate 600 mg/ (Dextrose) 54 mls @ 100 mls/hr IV Q8H [facility] Last Infusion: 05/09/20 06:06 Dose: Infused Documented by: Sodium Chloride (Sodium Chloride 0.9%) 1,000 mls @ 50 mls/hr IV .Q20H [facility] Last Admin: 05/09/20 10:19 Dose: 50 mls/hr Documented by: Vancomycin HCl 1,500 mg/ (Sodium Chloride) 500 mls @ 333.3 mls/hr IV Q48H [facility] Last Infusion: 05/09/20 11:47 Dose: Infused Documented by: Insulin Glargine (Insulin Glargine, Human 1 Unit/0.01 Ml) 20 unit SQ DAILY [facility] Last Admin: 05/09/20 10:15 Dose: 10 units Documented by: Insulin Human Lispro (Insulin Lispro 1 Unit/0.01 Ml Unit) 0 unit SQ ACHS [facility]; Protocol Last Admin: 05/09/20 12:49 Dose: 9 units Documented by: Iron Carb/Multivit/[place]/Folic Acid (Multivit,Ther Iron,Ca,Fa & Min 1 Tablet) 1 tab PO DAILY [facility] Last Admin: 05/09/20 08:44 Dose: 1 tab Documented by: Melatonin (Melatonin 3 Mg Tablet) 3 mg PO HSP PRN PRN Reason: Insomnia Ondansetron HCl (Ondansetron 4 Mg Odt Tablet) 4 mg SL Q4-6HP PRN; Protocol PRN Reason: Nausea And Vomiting Ondansetron HCl (Ondansetron 4 Mg/2 Ml Vial) 4 mg IV Q4-6HP PRN; Protocol PRN Reason: Nausea And Vomiting Senna/Docusate Sodium (Sennosides/Docusate Sodium 1 Tab Tablet) 1 tab PO HS [facility] Last Admin: 05/08/20 21:14 Dose: 1 tab Documented by: Sitagliptin Phosphate (Sitagliptin 50 Mg Tablet) 50 mg PO DAILY [facility] Last Admin: 05/09/20 08:44 Dose: 50 mg Documented by: Sodium Chloride (0.9 % Sodium Chloride 10 Ml Syringe) 10 ml IV Q8 [facility] Last Admin: 05/09/20 13:45 Dose: Not Given Documented by: Thiamine HCl (Thiamine 100 Mg Tablet) 100 mg PO DAILY [facility] Last Admin: 05/09/20 08:44 Dose: 100 mg Documented by: Vancomycin HCl (Vancomycin Per Pharmacy) 1 order IV UD [facility]; Protocol A/P Assessment and plan (1) Bacteremia: Status: Acute Comment: Frantz is a 70-year-old poorly controlled diabetic who was admitted yesterday with a glucose of 651 and creatinine of 1.8. Blood cultures positive for gram- positive cocci originating from severe infection involving the left lower extremity. He is postop day zero incision and drainage of necrotic ulcer on the left heel. He had soft tissue gas identified on CT scan. Infection likely polymicrobial. He remains on broad-spectrum therapy appropriately with cefepime vancomycin and clindamycin. It will be important to follow-up on final identification of positive blood culture. I would recommend surveillance repeat blood cultures tomorrow to make sure bacteremia clears. (2) Gangrene: Status: Acute Comment: Patient has evidently previously refused BKA although that was both recommended by orthopedic and podiatry. Continue to educate patient on clinical course of severe problem. (3) Diabetic ulcer of [place]: Status: Acute Comment: Right anterior ankle with ulceration. Appears to be stage III. (4) DMII (diabetes mellitus, type 2): Status: Chronic Comment: Hyperglycemia on admit with acute kidney injury, anemia. Further recommendations to follow regarding antibiotic will depend on culture results and wound appearance. Recommendations #1 maintain Vanco, Clinda, and cefepime at this time. 2. Obtain follow-up blood cultures tomorrow. 3. Follow-up on identification of bacteria on blood culture and wound cultures. Thank you very much. Qualifiers: Diabetes mellitus complication status: with skin complications Diabetes mellitus shelter insulin use: unspecified director long term care insulin use status Narrative A/P Narrative: * Necrotizing left lower extremity cellulitis/soft tissue infection with gangrenous change. Continue triple antibiotic coverage, ID on board. O rthopedics recommended amputation on admission however patient refused and underwent debridement by podiatry patient after discussion with family now requesting rereview and would like to undergo amputation due to nonhealing necrotic lower extremity and high risk of . Orthopedics Dr. Farrar will likely perform amputation in 24 hours * Acute hypoxic respiratory failure -now off noninvasive ventilation. Secondary to severe sepsis endorgan dysfunction * Severe sepsis secondary to enterococci bacteremia-on broad antibiotic coverage. * Enterococci bacteremia-surveillance cultures pending. Echocardiogram ordered. ID on board * Hyperosmolar hyper glycemic nonketotic state-improved on insulin drip. Now on Lantus 20/CCD/sliding scale insulin * Severe sepsis with endorgan dysfunction including acute kidney injury/elevated bilirubin and acute mental status change. Broad antibiotic coverage/p ancultures/aggressive management per guidelines * Acute mental status change -secondary to severe sepsis * Acute renal failure-secondary to severe sepsis endorgan dysfunction. Creatinine at 1.6. * Anemia-improved from 6.6-9.3, post 2 units PRBC transfusion * History of hypertension-hold antihypertensives * DM type II-currently on insulin drip * Prophylaxis Heparin Plan * Keep n.p.o. after midnight * Broad antibiotic coverage * Echocardiogram * Close hemodynamic monitoring * Very high risk mortality in the setting of necrotizing soft tissue infection with bacteremia Critical time spent in excess of 35 minutes on management of noninvasive ventilation/severe sepsis Time Spent With Patient Time: Total time spent is greater than 50% in coordination of care (as documented) at patient's floor/unit and/or counseling patient: QUALITY VTE Deep Vein Thrombosis/Pulmonary Embolism Present on Admission: No
--- NOTE | 2020-05-09 17:20 | Infectious Disease Consult ---
HPI Data of Consult Primary Care Provider: Hayes Issa DO Consult Narrative Patient Information: Note initiated : 05/09/20 at 5:13 pm Service Date, if different from initiated Date: [] Patient: Frantz Johnston a 70 y/o M admitted on 05/06/20 for weakness in legs. Chief Complaint: [thirsty] Frantz is a 70-year-old diabetic with severe infection of the left leg. He is currently hospital day 4 on IV cefepime Vanco and clindamycin. He is postop day #2 debridement of necrotic ulcer left heel. He has positive blood cultures with Enterococcus on May 06. Surveillance blood cultures on May 08 and May 09 have been completed and are no growth to date. White count 15.8 with a creatinine of 1.5. Patient denies foot pain. He has noticeable mouth odor from left foot. A foot culture was completed on May 07 and pending at this time. Dr. Farrar consult on patient today. Left BKA planned for tomorrow. cc:: CC: Reji Almonte [facility] All Active Problems (Updated 05/07/20 @ 17:39 by Donn Rodriguez MD) Bacteremia (Acute) Gangrene (Acute) Near syncope (Acute) Weakness (Acute) Diabetic ulcer of laughlin (Acute) Diabetic peripheral neuropathy (Chronic) Right knee pain (Acute) HTN (hypertension) (Chronic) Foot ulcer due to secondary DM (Acute) Tobacco abuse (Chronic) Blind left eye (Chronic ~1968) Lung disease (Chronic) DMII (diabetes mellitus, type 2) (Chronic ~2003) Medical History (Updated 05/07/20 @ 17:39 by Donn Rodriguez MD) Blind left eye (~1968) DMII (diabetes mellitus, type 2) (~2003) Hyperglycemia on admit with acute kidney injury, anemia. Further recommendations to follow regarding antibiotic will depend on culture results and wound appearance. Recommendations #1 maintain Vanco, Clinda, and cefepime at this time. 2. Obtain follow-up blood cultures tomorrow. 3. Follow-up on identification of bacteria on blood culture and wound cultures. Thank you very much. Lung disease Tobacco abuse Surgical History H/O colonoscopy (~1999) H/O eye surgery (~1968) Blind in left eye Family History Mother Dementia Social History marital status: smoking status: Current every day smoker tobacco type: cigarettes alcohol intake frequency: 0-2 drinks per day substance use type: does not use MEDS/ALLERGIES Home Medications and Allergies Home Medications Medication Instructions Recorded Confirmed Type blood sugar diagnostic #100 each 01/26/17 05/06/20 Rx pen needle, diabetic 31 gauge x #100 each 04/27/17 05/06/20 Rx 3/16" losartan 100 1 tab PO QDAY #90 tab 03/26/20 05/06/20 Rx mg-hydrochlorothiazide 25 mg tablet blood pressure test kit-large #1 ea 04/16/20 05/06/20 Rx gabapentin 300 mg capsule 300 mg PO BID #180 cap 04/16/20 05/06/20 Rx metformin 1,000 mg PO BID 05/06/20 05/06/20 History Allergies Allergy/AdvReac Type Severity Reaction Status Date / Time Penicillins Allergy Severe Difficulty Verified 05/06/20 19:10 Breathing Physical Examination Vital Signs Vital signs: Temp Pulse Resp BP Pulse Ox 98.7 F 93 H 18 116/76 94 05/09/20 14:26 05/09/20 14:26 05/09/20 14:26 05/09/20 13:01 05/09/20 14:26 Additional Exam Additional exam: General: Malodorous left foot heel protection present along with Oumar wrap. Malodor still detected. I was able to let him drink strawberry shake and glass of milk. HEENT: Poor dentition mouth dry. He has a crusted scab lesion on the bridge of his nose. Lungs clear bilaterally. Heart: Regular rate and rhythm without murmur. Abdomen soft nontender obese. Extremities: 3+ edema left greater than right. I did not remove the dressing. Results Laboratory Findings CBC and BMP: 05/09/20 05:00 05/09/20 05:51 Abnormal lab findings: Abnormal Labs 05/06/20 05/06/20 05/06/20 00:05 11:48 11:48 WBC 13.4 H RBC 2.41 L Hgb 8.4 L Hct 25.1 L MCV 104.1 H MCH 34.9 H RDW MPV 11.1 H Neut % (Auto) 92.9 H Lymph % (Auto) 4.0 L Lymph # (Auto) 0.54 L Absolute Neutrophils 12.42 H ESR 122 H Sodium 132 L 122 L Potassium 3.1 L Chloride 86 L Carbon Dioxide BUN 72 H 77 H Creatinine 1.5 H 1.8 H POC Creatinine 1.5 H Glucose 54 L 651 H* Uric Acid 8.9 H Calcium 8.2 L Phosphorus 2.0 L Magnesium 1.2 L Total Bilirubin 1.8 H 3.4 H Direct Bilirubin 1.6 H GGT 131 H Alkaline Phosphatase 139 H Troponin T C-Reactive Protein 23.90 H Total Protein 5.4 L Albumin 1.8 L 2.4 L Globulin 4.3 H Albumin/Globulin Ratio 0.5 L 0.6 L Urine Protein Urine Glucose (UA) Urine Occult Blood Hyaline Casts Vancomycin Trough 05/06/20 05/06/20 05/07/20 11:48 16:42 05:23 WBC RBC 1.93 L Hgb 6.6 L* Hct 19.4 L* MCV 100.5 H MCH 34.2 H RDW MPV 10.8 H Neut % (Auto) 85.5 H Lymph % (Auto) 8.9 L Lymph # (Auto) 0.94 L Absolute Neutrophils 9.07 H ESR Sodium Potassium Chloride Carbon Dioxide BUN Creatinine POC Creatinine Glucose Uric Acid Calcium Phosphorus Magnesium Total Bilirubin Direct Bilirubin GGT Alkaline Phosphatase Troponin T 0.03 H C-Reactive Protein Total Protein Albumin Globulin Albumin/Globulin Ratio Urine Protein Trace A Urine Glucose (UA) >=1000 mg/dl A Urine Occult Blood Trace-intact A Hyaline Casts 8 H Vancomycin Trough 05/07/20 05/08/20 05/08/20 05:23 06:15 06:15 WBC 12.9 H RBC 2.98 L Hgb 9.9 L Hct 30.0 L MCV 100.7 H MCH RDW 16.2 H MPV 11.4 H Neut % (Auto) 91.7 H Lymph % (Auto) 5.2 L Lymph # (Auto) 0.67 L Absolute Neutrophils 11.86 H ESR Sodium 129 L Potassium 5.4 H Chloride Carbon Dioxide 17 L BUN 72 H 79 H Creatinine 1.6 H 1.6 H POC Creatinine Glucose 136 H 300 H Uric Acid 9.3 H 11.1 H Calcium 8.1 L 8.5 L Phosphorus 2.2 L 4.9 H Magnesium Total Bilirubin 1.8 H 2.6 H Direct Bilirubin 1.5 H 2.4 H GGT 124 H 131 H Alkaline Phosphatase 120 H Troponin T C-Reactive Protein Total Protein 5.2 L Albumin 1.7 L 1.8 L Globulin 4.3 H Albumin/Globulin Ratio 0.5 L 0.4 L Urine Protein Urine Glucose (UA) Urine Occult Blood Hyaline Casts Vancomycin Trough 05/08/20 05/09/20 05/09/20 08:06 05:00 05:51 WBC 12.4 H RBC 2.75 L Hgb 9.3 L Hct 27.0 L MCV MCH RDW 15.7 H MPV 11.2 H Neut % (Auto) 83.0 H Lymph % (Auto) 10.4 L Lymph # (Auto) 1.29 L Absolute Neutrophils 10.26 H ESR Sodium 127 L Potassium Chloride Carbon Dioxide 20 L BUN 82 H Creatinine 1.6 H POC Creatinine Glucose 156 H Uric Acid 10.2 H Calcium 8.3 L Phosphorus Magnesium Total Bilirubin 1.6 H Direct Bilirubin 1.2 H GGT 162 H Alkaline Phosphatase 118 H Troponin T C-Reactive Protein Total Protein Albumin 1.9 L Globulin 4.0 H Albumin/Globulin Ratio 0.5 L Urine Protein Urine Glucose (UA) Urine Occult Blood Hyaline Casts Vancomycin Trough 21.9 H* Microbiology: Microbiology 05/07/20 13:00 Foot - Left Anaerobic Culture - Preliminary 05/08/20 09:03 Blood Blood Culture - Preliminary 05/08/20 08:55 Blood Blood Culture - Preliminary 05/06/20 12:07 Blood Blood Culture - Preliminary Enterococcus species 05/06/20 11:48 Blood Blood Culture - Preliminary Enterococcus species Enterococcus sensitivities pending from May 06. Follow-up blood cultures May 08 and May 09 pending. Foot cultures from May 07 pending. White count 12.4 83% segs creatinine 1.6 A/P Assessment and plan (1) Bacteremia: Status: Acute Comment: Frantz is a 70-year-old poorly controlled diabetic who was admitted yesterday with a glucose of 651 and creatinine of 1.8. Blood cultures positive for gram- positive cocci originating from severe infection involving the left lower extremity. He is postop day zero incision and drainage of necrotic ulcer on the left heel. He had soft tissue gas identified on CT scan. Infection likely polymicrobial. He remains on broad-spectrum therapy appropriately with cefepime vancomycin and clindamycin. It will be important to follow-up on final identification of positive blood culture. I would recommend surveillance repeat blood cultures tomorrow to make sure bacteremia clears. (2) Gangrene: Status: Acute Comment: Patient has evidently previously refused BKA although that was both recommended by orthopedic and podiatry. Continue to educate patient on clinical course of severe problem. (3) Diabetic ulcer of laughlin: Status: Acute Comment: Right anterior ankle with ulceration. Appears to be stage III. (4) DMII (diabetes mellitus, type 2): Status: Chronic Comment: Hyperglycemia on admit with acute kidney injury, anemia. Further recommendati ons to follow regarding antibiotic will depend on culture results and wound appearance. Recommendations #1 maintain Vanco, Clinda, and cefepime at this time. 2. Obtain follow-up blood cultures tomorrow. 3. Follow-up on identification of bacteria on blood culture and wound cultures. Thank you very much. Qualifiers: Diabetes mellitus fpc insulin use: unspecified intermission coordinator insulin use status Diabetes mellitus complication status: with skin complications Narrative A/P Narrative: Frantz is a 70-year-old diabetic with peripheral neuropathy. He is currently hospital day 4 postop day #2 debridement of severe necrotic ulcer of left heel. He is currently day 4 vancomycin cefepime and Vanco. Positive blood cultures reveal Enterococcus sensitivities pending. Foot cultures are pending. Dr. Farrar is planning to take the patient to the operating room tomorrow for left BKA. An echocardiogram is pending. I have reviewed with Dr. Devine. As long as follow-up blood cultures are negative and echocardiogram negative, I am expecting 2 weeks of IV Vanco and cefepime. He has significant allergy to penicillin but does tolerate cephalosporins. Please call for questions. Time Spent With Patient Time: Total time spent is greater than 50% in coordination of care (as documented) at patient's floor/unit and/or counseling patient:
[2020-05-09] MEDS: SENNOSIDES/DOCUSATE SODIUM 1 TAB TABLET PO SCH (21:15)
[2020-05-10] MEDS: 0.9 % SODIUM CHLORIDE 10 ML SYRINGE IV SCH ×3 (05:36→20:06)
[2020-05-10] MEDS: CLINDAMYCIN 600 MG in DEXTROSE 5% IN WATER 50 ML IV SCH ×3 (05:37→22:40)
[2020-05-10] MEDS: 0.9 % SODIUM CHLORIDE 1,000 ML IV SCH ×2 (05:37→23:57)
[2020-05-10 07:09] LABS: Basophils # (Auto) 0.03 K/mcL (0.00-0.20); Basophils % (Auto) 0.2 % (0.0-2.0); Eosinophils # (Auto) 0.07 K/mcL (0.00-0.70); Eosinophils % (Auto) 0.5 % (0.0-7.0); Hematocrit 26.4 % (41.0-55.0); Hemoglobin 8.9 g/dL (13.5-16.5); Lymphocytes # (Auto) 0.88 K/mcL (1.50-4.80); Lymphocytes % (Auto) 6.5 % (15.0-49.0); Mean Cell Volume 101.9 fL (80.0-100.0); Mean Corpuscular HGB Conc 33.7 g/dL (31.0-36.0); Mean Platelet Volume 11.2 fL (7.4-10.4); Monocytes # (Auto) 1.09 K/mcL (0.10-0.90); Neutrophils % (Auto) 84.8 % (38.0-78.0); Platelet Count 150 K/mcL (140-440); RBC 2.59 M/mcL (4.50-5.90); Red Cell Distribution Width 15.6 % (11.5-14.5); WBC 13.6 K/mcL (4.5-11.0)
[2020-05-10] MEDS: INSULIN LISPRO 1 UNIT/0.01 ML UNIT SQ SCH ×4 (07:11→20:17)
[2020-05-10] MEDS: ACETAMINOPHEN 650 MG/65 ML BAG IV PRN ×2 (07:32→14:14)
--- NOTE | 2020-05-10 07:35 | Progress Note ---
DATE OF VISIT: 05/10/2020 HISTORY OF PRESENT ILLNESS: I saw the patient in consultation yesterday. I told him I would follow up today after discussing his care with Dr. Pierre. No biopsy was sent at the surgery on Thursday, but Dr. Pierre described the heel bone as looking infected and surrounded by pus at surgery. I relayed this finding to the patient and he had discussed with the family already if he wanted to proceed with [id number] amputation. PHYSICAL EXAMINATION: GENERAL: On physical exam today, he looks ill, but responds appropriately to questions. LOWER EXTREMITIES: There is a demarcation of healthy versus less vascular skin in the mid tibial area. The wound was dressed today, but most of the sole of the foot was necrotic on exam yesterday. PLAN: I discussed the risks and benefits of a [id number]-[id number] amputation with him again including the risks of with or without amputation, needing revisions, needing a higher amputation and medical complications. The postoperative course was reviewed and no guarantees were given. He will remain n.p.o. today and will have surgery this afternoon. TJF:swathi Job ID: [id number] Doc ID: [id number] Keegan Farrar MD
[2020-05-10 07:52] LABS: ALT/SGPT 29 U/L (<40); AST/SGOT 67 U/L (<40); Albumin 1.5 gm/dL (3.2-5.2); Albumin/Globulin Ratio 0.4 (1.0-2.3); Alkaline Phosphatase 160 U/L (39-117); Bilirubin,Direct 1.4 mg/dL (<0.3); Bilirubin,Total 1.8 mg/dL (0.1-1.0); Blood Urea Nitrogen 69 mg/dL (8-23); Carbon Dioxide 18 mmol/L (22-30); Chloride 102 mmol/L (96-108); Globulin 3.9 gm/dL (2.2-3.7); Glomerular Filtration Rate 51; Glucose 59 mg/dL (70-105); Lactate Dehydrogenase 183 U/L (135-225); Phosphorous 2.8 mg/dL (2.5-4.5); Triglycerides 100 mg/dL (<150); Uric Acid 8.7 mg/dL (2.5-8.0)
[2020-05-10] MEDS: CEFEPIME 2 GM VIAL IV SCH ×2 (08:55→19:50)
[2020-05-10] MEDS: CYANOCOBALAMIN (VITAMIN B-12) 500 MCG TABLET PO SCH ×2 (09:25→20:41)
[2020-05-10] MEDS: GABAPENTIN 300 MG CAPSULE PO SCH ×2 (09:25→20:41)
[2020-05-10] MEDS: HEPARIN 5,000 UNIT/ML VIAL SQ SCH ×2 (09:25→20:41)
[2020-05-10] MEDS: DOCUSATE SODIUM 100 MG CAPSULE PO SCH ×2 (09:25→20:42)
[2020-05-10] MEDS: THIAMINE 100 MG TABLET PO SCH (09:25)
[2020-05-10] MEDS: sitaGLIPtin 50 MG TABLET PO SCH (09:25)
[2020-05-10] MEDS: MULTIVIT,THER IRON,CA,FA & MIN 1 TABLET PO SCH (09:25)
[2020-05-10] MEDS: INSULIN GLARGINE, HUMAN 1 UNIT/0.01 ML SQ SCH (10:24)
[2020-05-10] MEDS: 0.9 % SODIUM CHLORIDE 250 ML IV SCH ×2 (10:24→23:54)
[2020-05-10] MEDS ORDERED: 0.9 % SODIUM CHLORIDE 250 ML IV SCH (11:30)
[2020-05-10] MEDS ORDERED: ALBUMIN HUMAN 37.5 GM/150 ML BAG IV ONE (11:30)
--- NOTE | 2020-05-10 11:40 | Internal Med Progress Note ---
SUBJECTIVE Subjective Patient information: Note initiated : 05/10/20 at 11:35 am Service Date, if different from initiated Date: [] Patient: Frantz Johnston 70 y/o M admitted on 05/06/20 for weakness in legs. Chief Complaint: [] Interval history: Mr. Johnston is a 70 year old M with a history of poorly controlled diabetes/lower extremity diabetic wound who presents to the ER due to worsening lower extremity weakness/confusion/inability to take care of self. Patient also has not been able to bear weight or walk for the last few days. He lives alone at [place] and has been medically helpless over the last few days. He frequently sees wound care but was unable to change dressings. He complains of putrid foul-smelling odor with redness tenderness extending up to the lower thighs. He denied associated fever or chills but has been getting confused and lightheaded. Initial work-up in the ER was consistent with hyperosmolar nonketotic state with blood sugars in 600/acute kidney injury/gangrenous changes left lower extremity and bilateral lower extremity cellulitis. Patient was started on antibiotic coverage after cultures were drawn along with insulin drip and crystalloids. Orthopedic was consulted for possible surgical evaluation and amputation. He underwent CT runoff abdomen along with lower extremity that reveals extensive cellulitis in the left foot and gas and subcutaneous fat and fascia. Also cellulitis right lower extremity noted. Hospitalist service was consulted in light of above At the time of evaluation patient is very anxious/confused/unable to provide a detailed history but was able to endorse review of systems. Patient is very lethargic and confused. No family members present. Most of the history was ob tained from review of medical records and ED physician. Patient was able to provide a very limited history. He has not been able to change his dressings recently that has led to worsening wounds. He is however reluctant for surgical intervention but his understanding of the severity of necrotizing infection may be limited due to mental status change due to sepsis induced toxic encephalopathy. 05/07-patient critically ill with gangrenous changes left lower extremity along with cellulitis. On broad antibiotic coverage. On insulin drip for HSM today. Hemoglobin 6.8 on 2 units blood transfusion. Remains critically ill. Patient continues to refuse surgical amputation advised by orthopedics. Will likely undergo debridement. Podiatry on board. White count 10.6, hemoglobin 6.6, glucose improved to 136, creatinine 1.6, phosphorus 2.2, bilirubin downtrending at 1.8. -05/07 4 PM . discussed case with anesthesia post surgery. Patient profoundly hypoxic following extubation after debridement irrigation procedure. Patient was started on BiPAP at PACU. Patient was transferred and received in ICU on BiPAP. Stat ABGs not available due to heart state. However patient currently on 40% FiO2. Family members were informed by anesthesia about the critical nature of illness. Patient will be monitored closely and will be intubated if necessary and if evidence of worsening respiratory failure 05/08 patient overnight on BiPAP. More lucid alert this morning. Trial off BiPAP, tolerating well. Stable hemodynamics. Postop dressing. White count 12.9. Hemoglobin improved to 9.9 following units PRBC transfusion, sodium 129, potassium 5.4 likely secondary to hemolysis posttransfusion, continue monitoring, creatinine 1.6, blood sugar 300 started on basal insulin, bilirubin 2.4 05/09-patient remains lethargic however improving white count/hemodynamics. Reviewed by orthopedics for consideration of DKA in the setting of necrotic soft tissue infection with gangrene. Creatinine 1.6. On broad-spectrum antibiotic coverage. Blood culture positive enterococci. Surveillance cultures from 05/08 - so far. 05/10-patient remains encephalopathic due to worsening lower extremity cellul itis/gangrene. On antibiotic coverage. White count 13.6. Due for surgical amputation today. Currently n.p.o. Daughter at bedside. Discussed grim prognosis and patient may require postoperative ICU care due to decompensation during previous surgery. Blood sugars at goal. Systolic stable. Creatinine1.4 hemoglobin 8.9 Constitutional Vitals: Vital Signs Temp Pulse Resp BP Pulse Ox 98.4 F 91 H 17 125/69 95 05/10/20 08:01 05/10/20 10:06 05/10/20 10:06 05/10/20 10:01 05/10/20 10:06 Period Temp Pulse Resp BP Sys/Anderson Pulse Ox Last 24 Hr 98.2 F-99.1 F 78-93 14-31 106-136/53-104 93-99 Intake and Output 05/09/20 05/10/20 05/10/20 21:59 05:59 13:59 Intake Total 708 1028 119 Output Total 650 1225 Balance 58 -197 119 Weight 93.984 kg confused lethargic Nonlabored breathing Necrotizing lower extremity wound with putrid odor Intake & Output: Intake & Output 05/09/20 05/10/20 05/10/20 21:59 05:59 13:59 Intake Total 708 1028 119 Output Total 650 1225 Balance 58 -197 119 Weight 93.984 kg Intake: IV 108 678 119 Sodium Chloride 0.9% 1,000 ml @ 678 50 mls/hr IV .Q20H SOL Rx#: [id number] Cleocin 600 mg In Dextrose 5% 108 54 in Water 50 ml @ 100 mls/hr IV Q8H SOL Rx#:[id number] Oral 600 350 Output: Urine Catheter Amount 650 1225 Other: Meal Dinner Percent of Meal Consumed 50% Feeding Ability Assist with Tray Set Up Urine Appearance Clear Uretheral (Verdugo) Clear Clear Urine Color Dark Yellow Uretheral (Verdugo) Dark Yellow Dark Yellow OBJ DATA Labs CBC & Chem 7: 05/10/20 05:25 05/10/20 05:25 Labs: Abnormal Lab Results 05/10/20 05/10/20 05/09/20 05:25 05:25 05:51 WBC 13.6 H RBC 2.59 L Hgb 8.9 L Hct 26.4 L MCV 101.9 H MCH 34.4 H RDW 15.6 H MPV 11.2 H Neut % (Auto) 84.8 H Lymph % (Auto) 6.5 L Lymph # (Auto) 0.88 L [place] # (Auto) 1.09 H Absolute Neutrophils 11.52 H Sodium 127 L 127 L Potassium Carbon Dioxide 18 L 20 L Anion Gap 7.0 L BUN 69 H 82 H Creatinine 1.4 H 1.6 H Glucose 59 L 156 H Uric Acid 8.7 H 10.2 H Calcium 8.0 L 8.3 L Phosphorus Total Bilirubin 1.8 H 1.6 H Direct Bilirubin 1.4 H 1.2 H GGT 281 H 162 H AST 67 H Alkaline Phosphatase 160 H 118 H Total Protein 5.4 L Albumin 1.5 L 1.9 L Globulin 3.9 H 4.0 H Albumin/Globulin Ratio 0.4 L 0.5 L Vancomycin Trough 05/09/20 05/08/20 05/08/20 05:00 08:06 06:15 WBC 12.4 H RBC 2.75 L Hgb 9.3 L Hct 27.0 L MCV MCH RDW 15.7 H MPV 11.2 H Neut % (Auto) 83.0 H Lymph % (Auto) 10.4 L Lymph # (Auto) 1.29 L [place] # (Auto) Absolute Neutrophils 10.26 H Sodium 129 L Potassium 5.4 H Carbon Dioxide 17 L Anion Gap BUN 79 H Creatinine 1.6 H Glucose 300 H Uric Acid 11.1 H Calcium 8.5 L Phosphorus 4.9 H Total Bilirubin 2.6 H Direct Bilirubin 2.4 H GGT 131 H AST Alkaline Phosphatase 120 H Total Protein Albumin 1.8 L Globulin 4.3 H Albumin/Globulin Ratio 0.4 L Vancomycin Trough 21.9 H* 05/08/20 06:15 WBC 12.9 H RBC 2.98 L Hgb 9.9 L Hct 30.0 L MCV 100.7 H MCH RDW 16.2 H MPV 11.4 H Neut % (Auto) 91.7 H Lymph % (Auto) 5.2 L Lymph # (Auto) 0.67 L [place] # (Auto) Absolute Neutrophils 11.86 H Sodium Potassium Carbon Dioxide Anion Gap BUN Creatinine Glucose Uric Acid Calcium Phosphorus Total Bilirubin Direct Bilirubin GGT AST Alkaline Phosphatase Total Protein Albumin Globulin Albumin/Globulin Ratio Vancomycin Trough Meds: Medications Acetaminophen (Acetaminophen 325 Mg Tablet) 650 mg PO Q4-6HP PRN; Protocol PRN Reason: Per Pain Protocol/Fever > 101 Last Admin: 05/09/20 15:12 Dose: 650 mg Documented by: Bisacodyl (Bisacodyl 10 Mg Supp.Rect) 10 mg WA Q2-3DAYS PRN PRN Reason: Constipation Cefepime HCl (Cefepime 2 Gm Vial) 2 gm IV Q12H SOL; Protocol Last Admin: 05/10/20 08:55 Dose: 2 gm Documented by: Cyanocobalamin (Cyanocobalamin (Vitamin B-12) 500 Mcg Tablet) 1,000 mcg PO BID SOL Stop: 05/11/20 09:01 Last Admin: 05/10/20 09:25 Dose: Not Given Documented by: Dextrose (Dextrose 50% 50 Ml Vial) 0 ml IV UD PRN PRN Reason: Hypoglycemia Last Admin: 05/07/20 03:10 Dose: 25 ml Documented by: Diagnostic Test (Pha) (Accu-Chek 1 Each Strip) 1 each FS ACHS [facility] Last Admin: 05/10/20 07:09 Dose: 1 each Documented by: Docusate Sodium (Docusate Sodium 100 Mg Capsule) 100 mg PO BID [facility] Last Admin: 05/10/20 09:25 Dose: Not Given Documented by: Gabapentin (Gabapentin 300 Mg Capsule) 300 mg PO BID [facility] Last Admin: 05/10/20 09:25 Dose: Not Given Documented by: Glucose (Dextrose 31 Gm Oral.Susp) 15 gm PO PRN PRN PRN Reason: Hypoglycemia Guaifenesin/Codeine Phosphate (Guaifenesin/Codeine 10 Ml Udc) 10 ml PO Q4HP PRN PRN Reason: Cough Heparin Sodium (Porcine) (Heparin 5,000 Unit/Ml Vial) 5,000 unit SQ Q12 [facility] Last Admin: 05/10/20 09:25 Dose: Not Given Documented by: Hydromorphone HCl (Hydromorphone 0.5 Mg/0.5 Ml Syringe) 0.25 - 0.5 mg IV Q4HP PRN; Protocol PRN Reason: Per Pain Protocol Potassium Chloride 40 meq/ (Dextrose) 520 mls @ 130 mls/hr IV UD PRN PRN Reason: K+ = or < 3.5 Last Infusion: 05/07/20 08:20 Dose: Infused Documented by: Magnesium Sulfate (Magnesium Sulfate) 2 gm in 50 mls @ 50 mls/hr IV UD PRN PRN Reason: MG = or < 1.7 Last Infusion: 05/07/20 09:05 Dose: Infused Documented by: Acetaminophen (Ofirmev) 650 mg in 65 mls @ 130 mls/hr IV Q6HP PRN; Protocol PRN Reason: Per Pain Protocol/Fever > 101 Last Infusion: 05/10/20 08:02 Dose: Infused Documented by: Insulin Human Regular 50 unit/ (Sodium Chloride) 100 mls @ 2 mls/hr IV DUR [facility]; Protocol Last Titration: 05/07/20 05:30 Dose: 0 unit/hr, 0 mls/hr Documented by: Sodium Chloride (Sodium Chloride 0.9%) 250 mls @ 20 mls/hr IV .[id number] [facility] Last Admin: 05/10/20 10:24 Dose: Not Given Documented by: Clindamycin Phosphate 600 mg/ (Dextrose) 54 mls @ 100 mls/hr IV Q8H [facility] Last Infusion: 05/10/20 06:11 Dose: Infused Documented by: Sodium Chloride (Sodium Chloride 0.9%) 1,000 mls @ 50 mls/hr IV .Q20H [facility] Last Admin: 05/10/20 05:37 Dose: Not Given Documented by: Vancomycin HCl 1,500 mg/ (Sodium Chloride) 500 mls @ 333.3 mls/hr IV Q48H [facility] Last Infusion: 05/09/20 11:47 Dose: Infused Documented by: Sodium Chloride (Sodium Chloride 0.9%) 250 mls @ 20 mls/hr IV .[id number] [facility] Stop: 05/10/20 23:59 Albumin Human (Buminate) 37.5 gm in 150 mls @ 150 mls/hr IV ONCE ONE Stop: 05/10/20 12:29 Insulin Glargine (Insulin Glargine, Human 1 Unit/0.01 Ml) 20 unit SQ DAILY [facility] Last Admin: 05/10/20 10:24 Dose: Not Given Documented by: Insulin Human Lispro (Insulin Lispro 1 Unit/0.01 Ml Unit) 0 unit SQ [facility]; Protocol Last Admin: 05/10/20 07:11 Dose: Not Given Documented by: Iron Carb/Multivit/Mcpherson/Folic Acid (Multivit,Ther Iron,Ca,Fa & Min 1 Tablet) 1 tab PO DAILY [facility] Last Admin: 05/10/20 09:25 Dose: Not Given Documented by: Melatonin (Melatonin 3 Mg Tablet) 3 mg PO HSP PRN PRN Reason: Insomnia Ondansetron HCl (Ondansetron 4 Mg Odt Tablet) 4 mg SL Q4-6HP PRN; Protocol PRN Reason: Nausea And Vomiting Ondansetron HCl (Ondansetron 4 Mg/2 Ml Vial) 4 mg IV Q4-6HP PRN; Protocol PRN Reason: Nausea And Vomiting Senna/Docusate Sodium (Sennosides/Docusate Sodium 1 Tab Tablet) 1 tab PO [facility] Last Admin: 05/09/20 21:15 Dose: 1 tab Documented by: Sitagliptin Phosphate (Sitagliptin 50 Mg Tablet) 50 mg PO DAILY [facility] Last Admin: 05/10/20 09:25 Dose: Not Given Documented by: Sodium Chloride (0.9 % Sodium Chloride 10 Ml Syringe) 10 ml IV Q8 [facility] Last Admin: 05/10/20 05:36 Dose: 10 ml Documented by: Thiamine HCl (Thiamine 100 Mg Tablet) 100 mg PO DAILY [facility] Last Admin: 05/10/20 09:25 Dose: Not Given Documented by: Vancomycin HCl (Vancomycin Per Pharmacy) 1 order IV UD [facility]; Protocol A/P Narrative A/P Narrative: * Necrotizing left lower extremity cellulitis/soft tissue infection with gangrene. On extended spectrum antibiotic coverage, ID on board. Amputation today. Currently n.p.o. * Enterococcal bacteremia-surveillance cultures pending. Echocardiogram results awaited. * Acute hypoxic respiratory failure -clinically resolved now on room air * Severe sepsis secondary to necrotizing soft tissue infection/enterococcal bacteremia. Continue management per guidelines/broad antibiotic coverage * Poorly controlled DM with HHNK on presentation. Now well controlled on basal prandial insulin * Acute mental status change -secondary to severe sepsis endorgan dysfunction * Acute renal failure-secondary to severe sepsis endorgan dysfunction. Creatinine 1.4 * Anemia-improved from 6.6- 8.9, post 2 units PRBC transfusion * History of hypertension-health antihypertensives * Prophylaxis Heparin(hold for surgery) Plan * Review postop * Continue extended spectrum antibiotic coverage * Await echocardiogram/surveillance cultures * Close hemodynamic monitoring * Very high risk mortality in the setting of necrotizing soft tissue infection with bacteremia * Transfer to ICU postoperatively Time Spent With Patient Time: Total time spent is greater than 50% in coordination of care (as documented) at patient's floor/unit and/or counseling patient: QUALITY VTE Deep Vein Thrombosis/Pulmonary Embolism Present on Admission: No
[2020-05-10] MEDS ORDERED: CLINDAMYCIN 600 MG/4 ML VIAL ONE (14:11)
[2020-05-10] MEDS ORDERED: KETAMINE 100 MG/ML ML ONE (15:20)
[2020-05-10] MEDS ORDERED: LIDOCAINE HCL/PF 100 MG/5 ML SYRINGE IV ONE (15:20)
[2020-05-10] MEDS ORDERED: PROPOFOL 200 MG/20 ML VIAL IV ONE (15:20)
[2020-05-10] MEDS ORDERED: ONDANSETRON 4 MG/2 ML VIAL ONE (15:20)
[2020-05-10] MEDS ORDERED: DEXAMETHASONE 10 MG/ML VIAL ONE (15:20)
[2020-05-10] MEDS ORDERED: TRANEXAMIC ACID 1,000 MG/10 ML VIAL IV ONE (15:20)
[2020-05-10] MEDS ORDERED: GENTAMICIN SULFATE 800 MG/20 ML VIAL IR ONE (15:40)
[2020-05-10] MEDS ORDERED: BUPIVACAINE 0.5% 50 ML VIAL IJ ONE (15:50)
[2020-05-10 15:52] LABS: INR 1.3 (0.9-1.1); Prothrombin Time 16.6 sec (11.9-14.5)
[2020-05-10] MEDS ORDERED: PROMETHAZINE 25 MG/ML VIAL IV PRN (16:12)
[2020-05-10] MEDS ORDERED: diphenhydrAMINE 50 MG/ML VIAL IV PRN (16:12)
[2020-05-10] MEDS ORDERED: ONDANSETRON 4 MG/2 ML VIAL IV PRN (16:12)
[2020-05-10] MEDS ORDERED: IPRATROPIUM/ALBUTEROL 3 ML AMPUL.NEB NEB PRN (16:12)
[2020-05-10] MEDS ORDERED: LACTATED RINGERS 250 ML IV PRN (16:12)
[2020-05-10] MEDS ORDERED: NALOXONE HCL 0.4 MG/ML VIAL IV PRN (16:12)
[2020-05-10] MEDS ORDERED: MEPERIDINE 25 MG/ML VIAL IV PRN (16:12)
[2020-05-10] MEDS ORDERED: LACTATED RINGERS 1,000 ML IV SCH (16:15)
--- NOTE | 2020-05-10 16:20 | Brief Operative Note ---
Brief Operative Note Date of procedure: 05/10/20 Pre-op diagnosis: septic leg left Post-op diagnosis: same Procedure: L BKA Grafts/Implants: No Anesthesia: GETA Findings: no proximal infection Complications: none Surgeon: Keegan Farrar Extrusion Line Operator: Valeriano Solis Estimated blood loss (cc): 50 Tourniquet Time (Minutes): 14 Specimens Removed/Pathology: none sent Condition: stable Disposition: PACU
[2020-05-10] MEDS ORDERED: HYDROcodone/APAP 10/325MG TABLET PO PRN (16:24)
[2020-05-10] MEDS ORDERED: morphine 4 MG/ML VIAL IV PRN (16:24)
[2020-05-10] MEDS ORDERED: FUROSEMIDE 20 MG/2 ML VIAL IV ONE ×2 (16:54)
[2020-05-10] MEDS: fentaNYL 100 MCG/2 ML VIAL IV PRN ×3 (17:00→17:15)
[2020-05-10] MEDS: HYDROmorphone 0.5 MG/0.5 ML SYRINGE IV PRN ×2 (17:48→20:39)
[2020-05-10 20:38] LABS: Hematocrit 27.8 % (41.0-55.0); Hemoglobin 9.2 g/dL (13.5-16.5)
[2020-05-10] MEDS: SENNOSIDES/DOCUSATE SODIUM 1 TAB TABLET PO SCH (20:41)
[2020-05-11] MEDS: 0.9 % SODIUM CHLORIDE 1,000 ML IV SCH (03:32)
[2020-05-11] MEDS: 0.9 % SODIUM CHLORIDE 10 ML SYRINGE IV SCH ×3 (05:55→20:35)
[2020-05-11] MEDS: CLINDAMYCIN 600 MG in DEXTROSE 5% IN WATER 50 ML IV SCH ×3 (05:55→22:10)
[2020-05-11] MEDS: INSULIN LISPRO 1 UNIT/0.01 ML UNIT SQ SCH ×4 (07:30→20:36)
[2020-05-11] MEDS: CEFEPIME 2 GM VIAL IV SCH ×2 (07:34→20:34)
[2020-05-11 07:35] LABS: Basophils # (Auto) 0.01 K/mcL (0.00-0.20); Basophils % (Auto) 0.1 % (0.0-2.0); Eosinophils # (Auto) 0 K/mcL (0.00-0.70); Eosinophils % (Auto) 0 % (0.0-7.0); Hematocrit 26.6 % (41.0-55.0); Hemoglobin 8.9 g/dL (13.5-16.5); Lymphocytes # (Auto) 0.63 K/mcL (1.50-4.80); Lymphocytes % (Auto) 5.2 % (15.0-49.0); Mean Cell Volume 99.3 fL (80.0-100.0); Mean Corpuscular HGB Conc 33.5 g/dL (31.0-36.0); Mean Platelet Volume 11.5 fL (7.4-10.4); Monocytes # (Auto) 0.56 K/mcL (0.10-0.90); Monocytes % (Auto) 4.7 % (1.0-12.0); Platelet Count 153 K/mcL (140-440); RBC 2.68 M/mcL (4.50-5.90); Red Cell Distribution Width 15.4 % (11.5-14.5)
--- NOTE | 2020-05-11 08:06 | Orthopedic Progress Note ---
SUBJECTIVE Subjective Patient information: Note initiated : 05/11/20 at 8:00 am Service Date, if different from initiated Date: [] Patient: Frantz Johnston 70 y/o M admitted on 05/06/20 for weakness in legs. Chief Complaint: [] HPI: Patient is POD 1 from a left BKA, he is slightly confused but did explain that his pain in the leg is 5/10 and he is otherwise feeling okay. He denies any CP, GAYLE, SOB, or any other acute symptoms. Physical exam: Exam of LLE reveals dressings in place, brace in place, stump is well protected, Wound vac has no drainage, patient is resting comfortably and is conversive but repeats himself and is slightly confused. Constitutional Vitals: Vital Signs Temp Pulse Resp BP Pulse Ox 98.0 F 94 H 18 149/86 94 05/11/20 04:01 05/11/20 06:01 05/11/20 06:01 05/11/20 06:01 05/11/20 06:01 Period Temp Pulse Resp BP Sys/Anderson Pulse Ox Last 24 Hr 98.0 F-98.8 F 83-101 12- 93-157/55-112 91-99 Intake and Output 05/10/20 05/11/20 05/11/20 21:59 05:59 13:59 Intake Total 1669 1294 54 Output Total 1625 1100 250 Balance 44 194 -196 Weight 204 lb 14.4 oz Intake & Output: Intake & Output 05/10/20 05/11/20 05/11/20 21:59 05:59 13:59 Intake Total 1669 1294 54 Output Total 1625 1100 250 Balance 44 194 -196 Weight 204 lb 14.4 oz Intake: IV 269 1054 54 Sodium Chloride 0.9% 1,000 ml @ 1000 50 mls/hr IV .Q20H SOL Rx#: [id number] Cleocin 600 mg In Dextrose 5% 54 54 54 in Water 50 ml @ 100 mls/hr IV Q8H SOL Rx#:[id number] Oral 240 IV - Manual Only 1400 Output: Urine Catheter Amount 1125 1100 250 Estimated Blood Loss 500 Other: Urine Appearance Clear Clear Clear Uretheral (Verdugo) Clear Clear Urine Color Bright Yellow Bright Yellow Light Asia Uretheral (Verdugo) Bright Yellow Bright Yellow Urine Odor Normal Normal Normal OBJ DATA Labs CBC & Chem 7: 05/11/20 06:14 05/10/20 05:25 Labs: Abnormal Lab Results 05/11/20 05/10/20 05/10/20 06:14 19:18 13:28 WBC 12.0 H RBC 2.68 L Hgb 8.9 L 9.2 L Hct 26.6 L 27.8 L MCV MCH RDW 15.4 H MPV 11.5 H Neut % (Auto) 90.0 H Lymph % (Auto) 5.2 L Lymph # (Auto) 0.63 L Terry # (Auto) Absolute Neutrophils 10.84 H PT 16.6 H INR 1.3 H Sodium Potassium Carbon Dioxide Anion Gap BUN Creatinine Glucose Uric Acid Calcium Phosphorus Total Bilirubin Direct Bilirubin GGT AST Alkaline Phosphatase Total Protein Albumin Globulin Albumin/Globulin Ratio Vancomycin Trough 05/10/20 05/10/20 05/09/20 05:25 05:25 05:51 WBC 13.6 H RBC 2.59 L Hgb 8.9 L Hct 26.4 L MCV 101.9 H MCH 34.4 H RDW 15.6 H MPV 11.2 H Neut % (Auto) 84.8 H Lymph % (Auto) 6.5 L Lymph # (Auto) 0.88 L Terry # (Auto) 1.09 H Absolute Neutrophils 11.52 H PT INR Sodium 127 L 127 L Potassium Carbon Dioxide 18 L 20 L Anion Gap 7.0 L BUN 69 H 82 H Creatinine 1.4 H 1.6 H Glucose 59 L 156 H Uric Acid 8.7 H 10.2 H Calcium 8.0 L 8.3 L Phosphorus Total Bilirubin 1.8 H 1.6 H Direct Bilirubin 1.4 H 1.2 H GGT 281 H 162 H AST 67 H Alkaline Phosphatase 160 H 118 H Total Protein 5.4 L Albumin 1.5 L 1.9 L Globulin 3.9 H 4.0 H Albumin/Globulin Ratio 0.4 L 0.5 L Vancomycin Trough 05/09/20 05/08/20 05/08/20 05:00 08:06 06:15 WBC 12.4 H RBC 2.75 L Hgb 9.3 L Hct 27.0 L MCV MCH RDW 15.7 H MPV 11.2 H Neut % (Auto) 83.0 H Lymph % (Auto) 10.4 L Lymph # (Auto) 1.29 L Terry # (Auto) Absolute Neutrophils 10.26 H PT INR Sodium 129 L Potassium 5.4 H Carbon Dioxide 17 L Anion Gap BUN 79 H Creatinine 1.6 H Glucose 300 H Uric Acid 11.1 H Calcium 8.5 L Phosphorus 4.9 H Total Bilirubin 2.6 H Direct Bilirubin 2.4 H GGT 131 H AST Alkaline Phosphatase 120 H Total Protein Albumin 1.8 L Globulin 4.3 H Albumin/Globulin Ratio 0.4 L Vancomycin Trough 21.9 H* 05/08/20 06:15 WBC 12.9 H RBC 2.98 L Hgb 9.9 L Hct 30.0 L MCV 100.7 H MCH RDW 16.2 H MPV 11.4 H Neut % (Auto) 91.7 H Lymph % (Auto) 5.2 L Lymph # (Auto) 0.67 L Terry # (Auto) Absolute Neutrophils 11.86 H PT INR Sodium Potassium Carbon Dioxide Anion Gap BUN Creatinine Glucose Uric Acid Calcium Phosphorus Total Bilirubin Direct Bilirubin GGT AST Alkaline Phosphatase Total Protein Albumin Globulin Albumin/Globulin Ratio Vancomycin Trough Meds: Medications Acetaminophen (Acetaminophen 325 Mg Tablet) 650 mg PO Q4-6HP PRN; Protocol PRN Reason: Per Pain Protocol/Fever > 101 Last Admin: 05/09/20 15:12 Dose: 650 mg Documented by: Hydrocodone Bitart/Acetaminophen (Hydrocodone/Apap 10/325mg Tablet) 1 - 2 tab PO Q4HP PRN; Protocol PRN Reason: Per Pain Protocol Bisacodyl (Bisacodyl 10 Mg Supp.Rect) 10 mg MA Q2-3DAYS PRN PRN Reason: Constipation Cefepime HCl (Cefepime 2 Gm Vial) 2 gm IV Q12H SOL; Protocol Last Admin: 05/11/20 07:34 Dose: 2 gm Documented by: Cyanocobalamin (Cyanocobalamin (Vitamin B-12) 500 Mcg Tablet) 1,000 mcg PO BID SOL Stop: 05/11/20 09:01 Last Admin: 05/10/20 20:41 Dose: 1,000 mcg Documented by: Dextrose (Dextrose 50% 50 Ml Vial) 0 ml IV UD PRN PRN Reason: Hypoglycemia Last Admin: 05/07/20 03:10 Dose: 25 ml Documented by: Diagnostic Test (Pha) (Accu-Chek 1 Each Strip) 1 each FS ACHS SOL Last Admin: 05/11/20 07:29 Dose: 1 each Documented by: Docusate Sodium (Docusate Sodium 100 Mg Capsule) 100 mg PO BID [facility] Last Admin: 05/10/20 20:42 Dose: 100 mg Documented by: Gabapentin (Gabapentin 300 Mg Capsule) 300 mg PO BID [facility] Last Admin: 05/10/20 20:41 Dose: 300 mg Documented by: Glucose (Dextrose 31 Gm Oral.Susp) 15 gm PO PRN PRN PRN Reason: Hypoglycemia Guaifenesin/Codeine Phosphate (Guaifenesin/Codeine 10 Ml Udc) 10 ml PO Q4HP PRN PRN Reason: Cough Heparin Sodium (Porcine) (Heparin 5,000 Unit/Ml Vial) 5,000 unit SQ Q12 [facility] Last Admin: 05/10/20 20:41 Dose: 5,000 unit Documented by: Hydromorphone HCl (Hydromorphone 0.5 Mg/0.5 Ml Syringe) 0.25 - 0.5 mg IV Q4HP PRN; Protocol PRN Reason: Per Pain Protocol Last Admin: 05/10/20 20:39 Dose: 0.5 mg Documented by: Potassium Chloride 40 meq/ (Dextrose) 520 mls @ 130 mls/hr IV UD PRN PRN Reason: K+ = or < 3.5 Last Infusion: 05/07/20 08:20 Dose: Infused Documented by: Magnesium Sulfate (Magnesium Sulfate) 2 gm in 50 mls @ 50 mls/hr IV UD PRN PRN Reason: MG = or < 1.7 Last Infusion: 05/07/20 09:05 Dose: Infused Documented by: Acetaminophen (Ofirmev) 650 mg in 65 mls @ 130 mls/hr IV Q6HP PRN; Protocol PRN Reason: Per Pain Protocol/Fever > 101 Last Infusion: 05/10/20 14:44 Dose: Infused Documented by: Insulin Human Regular 50 unit/ (Sodium Chloride) 100 mls @ 2 mls/hr IV DUR [facility]; Protocol Last Titration: 05/07/20 05:30 Dose: 0 unit/hr, 0 mls/hr Documented by: Sodium Chloride (Sodium Chloride 0.9%) 250 mls @ 20 mls/hr IV .[id number] [facility] Last Admin: 05/10/20 23:54 Dose: Not Given Documented by: Clindamycin Phosphate 600 mg/ (Dextrose) 54 mls @ 100 mls/hr IV Q8H [facility] Last Infusion: 05/11/20 06:30 Dose: Infused Documented by: Sodium Chloride (Sodium Chloride 0.9%) 1,000 mls @ 50 mls/hr IV .Q20H [facility] Last Admin: 05/11/20 03:32 Dose: Not Given Documented by: Vancomycin HCl 1,500 mg/ (Sodium Chloride) 500 mls @ 333.3 mls/hr IV Q48H [facility] Last Infusion: 05/09/20 11:47 Dose: Infused Documented by: Insulin Glargine (Insulin Glargine, Human 1 Unit/0.01 Ml) 20 unit SQ DAILY [facility] Last Admin: 05/10/20 10:24 Dose: Not Given Documented by: Insulin Human Lispro (Insulin Lispro 1 Unit/0.01 Ml Unit) 0 unit SQ ACHS [facility]; Protocol Last Admin: 05/11/20 07:30 Dose: 6 units Documented by: Iron Carb/Multivit/Reel Worker/Folic Acid (Multivit,Ther Iron,Ca,Fa & Min 1 Tablet) 1 tab PO DAILY [facility] Last Admin: 05/10/20 09:25 Dose: Not Given Documented by: Melatonin (Melatonin 3 Mg Tablet) 3 mg PO HSP PRN PRN Reason: Insomnia Morphine Sulfate (Morphine 4 Mg/Ml Vial) 4 mg IV Q1HP PRN; Protocol PRN Reason: Per Pain Protocol Last Admin: 05/11/20 02:40 Dose: 4 mg Documented by: Ondansetron HCl (Ondansetron 4 Mg Odt Tablet) 4 mg SL Q4-6HP PRN; Protocol PRN Reason: Nausea And Vomiting Ondansetron HCl (Ondansetron 4 Mg/2 Ml Vial) 4 mg IV Q4-6HP PRN; Protocol PRN Reason: Nausea And Vomiting Last Admin: 05/11/20 07:31 Dose: 4 mg Documented by: Senna/Docusate Sodium (Sennosides/Docusate Sodium 1 Tab Tablet) 1 tab PO HS [facility] Last Admin: 05/10/20 20:41 Dose: 1 tab Documented by: Sitagliptin Phosphate (Sitagliptin 50 Mg Tablet) 50 mg PO DAILY [facility] Last Admin: 05/10/20 09:25 Dose: Not Given Documented by: Sodium Chloride (0.9 % Sodium Chloride 10 Ml Syringe) 10 ml IV Q8 [facility] Last Admin: 05/11/20 05:55 Dose: 10 ml Documented by: Thiamine HCl (Thiamine 100 Mg Tablet) 100 mg PO DAILY [facility] Last Admin: 05/10/20 09:25 Dose: Not Given Documented by: Vancomycin HCl (Vancomycin Per Pharmacy) 1 order IV UD [facility]; Protocol A/P Assessment and plan (1) Below-knee amputation of left lower extremity: Status: Acute Comment: Patient is POD 1 from left below knee amputation. Surgery went very well, wound closed well and wound vac is in place without drianage, 1. Leave wound vac in place until POD 7 2. PT for transfers 3. Hospitalists for medical management 4. Leave brace on leg for protection of stump 5. Ortho signing off to hospitalists 6. Follow up with HEAVEN Solis on POD 7 for wound vac removal. Time Spent With Patient Time: Total time spent is greater than 50% in coordination of care (as documented) at patient's floor/unit and/or counseling patient:
[2020-05-11 08:22] LABS: ALT/SGPT 24 U/L (<40); AST/SGOT 44 U/L (<40); Albumin 2.2 gm/dL (3.2-5.2); Albumin/Globulin Ratio 0.5 (1.0-2.3); Alkaline Phosphatase 149 U/L (39-117); Bilirubin,Direct 1.5 mg/dL (<0.3); Bilirubin,Total 1.9 mg/dL (0.1-1.0); Blood Urea Nitrogen 65 mg/dL (8-23); Calcium 8.2 mg/dL (8.6-10.4); Carbon Dioxide 15 mmol/L (22-30); Chloride 99 mmol/L (96-108); Globulin 4.1 gm/dL (2.2-3.7); Glomerular Filtration Rate 51; Glucose 193 mg/dL (70-105); Lactate Dehydrogenase 149 U/L (135-225); Phosphorous 5.2 mg/dL (2.5-4.5); Triglycerides 91 mg/dL (<150)
[2020-05-11] MEDS ORDERED: SODIUM POLYSTYRENE SULFONATE 15 GM/60 ML SUSPENSION PO ONE (08:32)
--- NOTE | 2020-05-11 09:00 | Operative Note ---
DATE OF OPERATION: 05/10/2020 PREOPERATIVE DIAGNOSIS: Septic left leg. POSTOPERATIVE DIAGNOSIS: Septic left leg. PROCEDURE: 1. [id number] amputation, left side. 2. Prevena Wound V.A.C. SURGEON: Keegan Farrar MD MENTAL HEALTH ASSISTANT: Valeriano Solis PA-C. This providers expertise and technical skill were required throughout the case. The PA assisted with preoperative coordination, intraoperative retraction, wound closure, and dressing and splint application, as well as postoperative documentation and care coordination. ANESTHESIA: General. ANESTHESIOLOGIST: Jorge Mckinnon CRNA TOURNIQUET TIME: 14 minutes. ESTIMATED BLOOD LOSS: 50 mL. SUMMARY OF PROCEDURE: Summary general anesthesia was attained. The patient was prepped and draped. A fishmouth incision was outlined, planning the bone cut 4 fingerbreadths below the tibial tubercle. The anterior and posterior flaps were then cut sharply. The popliteal artery was identified, clamped and then double suture ligated. Surrounding veins were also double suture ligated. The sciatic nerve was identified and cut and injected with 10 mL of Marcaine. The bone cut was made 4 fingerbreadths below the tibial tubercle, taking an anterior bevel. The fibula was cut about a centimeter proximal to the tibial cut. After the bone cuts and hemostasis, the tourniquet was let down and there was minimal bleeding. All bleeders were stopped using the Bovie and tying with silk as needed. Two drill holes were made in the anterior tibia. Two 0 Vicryl sutures were placed through the hole and then through the deep and superficial posterior fascia, creating a myodesis with the posterior flap. The sutures were tied with the flap reduced. After thorough irrigation with IrriSept, the incision was then closed using 0 Vicryls for the fascial closure, 2-0 Monocryl on the subcutaneous tissue and [id number] sutures of 0 Prolene on the skin. A Prevena drain was then placed followed by a knee ranger set at 0-60 degrees. The sponge and needle count was correct. The patient tolerated the procedure and was taken to recovery in stable condition. [id number] Job ID: [id number] Doc ID: [id number] Keegan Farrar MD
[2020-05-11] MEDS ORDERED: HYDROmorphone 0.5 MG/0.5 ML SYRINGE IV PRN ×2 (09:20)
[2020-05-11] MEDS ORDERED: HYDROCODONE/APAP 7.5/325MG TABLET PO PRN (09:20)
[2020-05-11] MEDS: GABAPENTIN 300 MG CAPSULE PO SCH ×2 (10:16→20:37)
[2020-05-11] MEDS: sitaGLIPtin 50 MG TABLET PO SCH (10:16)
[2020-05-11] MEDS: CYANOCOBALAMIN (VITAMIN B-12) 500 MCG TABLET PO SCH (10:16)
[2020-05-11] MEDS: DOCUSATE SODIUM 100 MG CAPSULE PO SCH ×2 (10:16→20:35)
[2020-05-11] MEDS: ACETAMINOPHEN 325 MG TABLET PO PRN (10:16)
[2020-05-11] MEDS: VANCOMYCIN 1,500 MG in 0.9 % SODIUM CHLORIDE 500 ML IV SCH (10:18)
[2020-05-11] MEDS: INSULIN GLARGINE, HUMAN 1 UNIT/0.01 ML SQ SCH (10:19)
[2020-05-11] MEDS: HEPARIN 5,000 UNIT/ML VIAL SQ SCH ×2 (10:19→20:35)
[2020-05-11] MEDS: THIAMINE 100 MG TABLET PO SCH (10:20)
[2020-05-11] MEDS: MULTIVIT,THER IRON,CA,FA & MIN 1 TABLET PO SCH (10:21)
[2020-05-11] MEDS: 0.9 % SODIUM CHLORIDE 250 ML IV SCH ×2 (10:56→22:55)
--- NOTE | 2020-05-11 11:08 | Internal Med Progress Note ---
SUBJECTIVE Subjective Patient information: Note initiated : 05/11/20 at 11:05 am Service Date, if different from initiated Date: [] Patient: Frantz Johnston 70 y/o M admitted on 05/06/20 for weakness in legs. Chief Complaint: [] Interval history: Lethargic and complains of pain at amputation stumpMrEmerita Johnston is a 70 year old M with a history of poorly controlled diabetes/lower extremity diabetic wound who presents to the ER due to worsening lower extremity weakness/confusion/inability to take care of self. Patient also has not been able to bear weight or walk for the last few days. He lives alone at [place] and has been medically helpless over the last few days. He frequently sees wound care but was unable to change dressings. He complains of putrid foul- smelling odor with redness tenderness extending up to the lower thighs. He denied associated fever or chills but has been getting confused and lightheaded. Initial work-up in the ER was consistent with hyperosmolar nonketotic state with blood sugars in 600/acute kidney injury/gangrenous changes left lower extremity and bilateral lower extremity cellulitis. Patient was started on antibiotic coverage after cultures were drawn along with insulin drip and crystalloids. Orthopedic was consulted for possible surgical evaluation and amputation. He underwent CT runoff abdomen along with lower extremity that reveals extensive cellulitis in the left foot and gas and subcutaneous fat and fascia. Also cellulitis right lower extremity noted. Hospitalist service was consulted in light of above At the time of evaluation patient is very anxious/confused/unable to provide a detailed history but was able to endorse review of systems. Patient is very lethargic and confused. No family members present. Most of the history was obtained from review of medical records and ED physician. Patient was able to provide a very limited history. He has not been able to change his dressings recently that has led to worsening wounds. He is however reluctant for surgical intervention but his understanding of the severity of necrotizing infection may be limited due to mental status change due to sepsis induced toxic encephalopathy. 05/07-patient critically ill with gangrenous changes left lower extremity along with cellulitis. On broad antibiotic coverage. On insulin drip for HSM today. Hemoglobin 6.8 on 2 units blood transfusion. Remains critically ill. Patient continues to refuse surgical amputation advised by orthopedics. Will likely undergo debridement. Podiatry on board. White count 10.6, hemoglobin 6.6, glucose improved to 136, creatinine 1.6, phosphorus 2.2, bilirubin downtrending at 1.8. -05/07 4 PM . discussed case with anesthesia post surgery. Patient profoundly hypoxic following extubation after debridement irrigation procedure. Patient was started on BiPAP at PACU. Patient was transferred and received in ICU on BiPAP. Stat ABGs not available due to heart state. However patient currently on 40% FiO2. Family members were informed by anesthesia about the critical nature of illness. Patient will be monitored closely and will be intubated if necessary and if evidence of worsening respiratory failure 05/08 patient overnight on BiPAP. More lucid alert this morning. Trial off BiPAP, tolerating well. Stable hemodynamics. Postop dressing. White count 12.9. Hemoglobin improved to 9.9 following units PRBC transfusion, sodium 129, potassium 5.4 likely secondary to hemolysis posttransfusion, continue monitoring, creatinine 1.6, blood sugar 300 started on basal insulin, bilirubin 2.4 05/09-patient remains lethargic however improving white count/hemodynamics. Reviewed by orthopedics for consideration of DKA in the setting of necrotic soft tissue infection with gangrene. Creatinine 1.6. On broad-spectrum antibiotic coverage. Blood culture positive enterococci. Surveillance cultures from 05/08 - so far. 05/10-patient remains encephalopathic due to worsening lower extremity cellulitis/gangrene. On antibiotic coverage. White count 13.6. Due for surgical amputation today. Currently n.p.o. Daughter at bedside. Discussed grim prognosis and patient may require postoperative ICU care due to decompensation during previous surgery. Blood sugars at goal. Systolic stable. Creatinine 1.4 hemoglobin 8.9 05/11-question postop amputation day 1. Remains lethargic and complains of pain at amputation stump. [employer] on board. Ongoing therapies. Hemoglobin stable. White count downtrending at 12, systolic stable, continue antibiotic coverage. Potassium 5.9 status post Kayexalate. Creatinine 1.4, blood sugar 193 on basal prandial insulin. Constitutional Vitals: Vital Signs Temp Pulse Resp BP Pulse Ox 99 F 94 H 15 148/86 95 05/11/20 08:02 05/11/20 10:00 05/11/20 10:00 05/11/20 10:00 05/11/20 10:00 Period Temp Pulse Resp BP Sys/Anderson Pulse Ox Last 24 Hr 98.0 F-99 F 83-101 12-22 93-157/55-112 91-99 Intake and Output 05/10/20 05/11/20 05/11/20 21:59 05:59 13:59 Intake Total 1669 1294 294 Output Total 1625 1100 250 Balance 44 194 44 Weight 92.941 kg nonlabored breathing Minimal anxiety Lethargic Nondistended abdomen Intake & Output: Intake & Output 05/10/20 05/11/20 05/11/20 21:59 05:59 13:59 Intake Total 1669 1294 294 Output Total 1625 1100 250 Balance 44 194 44 Weight 92.941 kg Intake: IV 269 1054 54 Sodium Chloride 0.9% 1,000 ml @ 1000 50 mls/hr IV .Q20H SOL Rx#: [id number] Cleocin 600 mg In Dextrose 5% 54 54 54 in Water 50 ml @ 100 mls/hr IV Q8H SOL Rx#:[id number] Oral 240 240 IV - Manual Only 1400 Output: Urine Catheter Amount 1125 1100 250 Estimated Blood Loss 500 Other: Meal Breakfast Percent of Meal Consumed 100% Feeding Ability Independent Urine Appearance Clear Clear Clear Uretheral (Verdugo) Clear Clear Urine Color Bright Yellow Bright Yellow Light [place] Uretheral (Verdugo) Bright Yellow Bright Yellow Urine Odor Normal Normal Normal OBJ DATA Labs CBC & Chem 7: 05/11/20 06:14 05/11/20 06:13 Labs: Abnormal Lab Results 05/11/20 05/11/20 05/10/20 06:14 06:13 19:18 WBC 12.0 H RBC 2.68 L Hgb 8.9 L 9.2 L Hct 26.6 L 27.8 L MCV MCH RDW 15.4 H MPV 11.5 H Neut % (Auto) 90.0 H Lymph % (Auto) 5.2 L Lymph # (Auto) 0.63 L [place] # (Auto) Absolute Neutrophils 10.84 H PT INR Sodium 128 L Potassium 5.9 H* Carbon Dioxide 15 L Anion Gap BUN 65 H Creatinine 1.4 H Glucose 193 H Uric Acid 9.0 H Calcium 8.2 L Phosphorus 5.2 H Total Bilirubin 1.9 H Direct Bilirubin 1.5 H GGT 245 H AST 44 H Alkaline Phosphatase 149 H Total Protein Albumin 2.2 L Globulin 4.1 H Albumin/Globulin Ratio 0.5 L 05/10/20 05/10/20 05/10/20 13:28 05:25 05:25 WBC 13.6 H RBC 2.59 L Hgb 8.9 L Hct 26.4 L MCV 101.9 H MCH 34.4 H RDW 15.6 H MPV 11.2 H Neut % (Auto) 84.8 H Lymph % (Auto) 6.5 L Lymph # (Auto) 0.88 L [place] # (Auto) 1.09 H Absolute Neutrophils 11.52 H PT 16.6 H INR 1.3 H Sodium 127 L Potassium Carbon Dioxide 18 L Anion Gap 7.0 L BUN 69 H Creatinine 1.4 H Glucose 59 L Uric Acid 8.7 H Calcium 8.0 L Phosphorus Total Bilirubin 1.8 H Direct Bilirubin 1.4 H GGT 281 H AST 67 H Alkaline Phosphatase 160 H Total Protein 5.4 L Albumin 1.5 L Globulin 3.9 H Albumin/Globulin Ratio 0.4 L 05/09/20 05/09/20 05:51 05:00 WBC 12.4 H RBC 2.75 L Hgb 9.3 L Hct 27.0 L MCV MCH RDW 15.7 H MPV 11.2 H Neut % (Auto) 83.0 H Lymph % (Auto) 10.4 L Lymph # (Auto) 1.29 L [place] # (Auto) Absolute Neutrophils 10.26 H PT INR Sodium 127 L Potassium Carbon Dioxide 20 L Anion Gap BUN 82 H Creatinine 1.6 H Glucose 156 H Uric Acid 10.2 H Calcium 8.3 L Phosphorus Total Bilirubin 1.6 H Direct Bilirubin 1.2 H GGT 162 H AST Alkaline Phosphatase 118 H Total Protein Albumin 1.9 L Globulin 4.0 H Albumin/Globulin Ratio 0.5 L Meds: Medications Acetaminophen (Acetaminophen 325 Mg Tablet) 650 mg PO Q4-6HP PRN; Protocol PRN Reason: Per Pain Protocol/Fever > 101 Last Admin: 05/11/20 10:16 Dose: 650 mg Documented by: Hydrocodone Bitart/Acetaminophen (Hydrocodone/Apap 10/325mg Tablet) 1 - 2 tab PO Q4HP PRN; Protocol PRN Reason: Per Pain Protocol Bisacodyl (Bisacodyl 10 Mg Supp.Rect) 10 mg [place] Q2-3DAYS PRN PRN Reason: Constipation Cefepime HCl (Cefepime 2 Gm Vial) 2 gm IV Q12H SOL; Protocol Last Admin: 05/11/20 07:34 Dose: 2 gm Documented by: Dextrose (Dextrose 50% 50 Ml Vial) 0 ml IV UD PRN PRN Reason: Hypoglycemia Last Admin: 05/07/20 03:10 Dose: 25 ml Documented by: Diagnostic Test (Pha) (Accu-Chek 1 Each Strip) 1 each FS ACHS [facility] Last Admin: 05/11/20 07:29 Dose: 1 each Documented by: Docusate Sodium (Docusate Sodium 100 Mg Capsule) 100 mg PO BID [facility] Last Admin: 05/11/20 10:16 Dose: 100 mg Documented by: Gabapentin (Gabapentin 300 Mg Capsule) 300 mg PO BID [facility] Last Admin: 05/11/20 10:16 Dose: 300 mg Documented by: Glucose (Dextrose 31 Gm Oral.Susp) 15 gm PO PRN PRN PRN Reason: Hypoglycemia Guaifenesin/Codeine Phosphate (Guaifenesin/Codeine 10 Ml Udc) 10 ml PO Q4HP PRN PRN Reason: Cough Heparin Sodium (Porcine) (Heparin 5,000 Unit/Ml Vial) 5,000 unit SQ Q12 [facility] Last Admin: 05/11/20 10:19 Dose: 5,000 unit Documented by: Hydromorphone HCl (Hydromorphone 0.5 Mg/0.5 Ml Syringe) 0.5 mg IV Q4HP PRN; Pro tocol PRN Reason: Per Pain Protocol Potassium Chloride 40 meq/ (Dextrose) 520 mls @ 130 mls/hr IV UD PRN PRN Reason: K+ = or < 3.5 Last Infusion: 05/07/20 08:20 Dose: Infused Documented by: Magnesium Sulfate (Magnesium Sulfate) 2 gm in 50 mls @ 50 mls/hr IV UD PRN PRN Reason: MG = or < 1.7 Last Infusion: 05/07/20 09:05 Dose: Infused Documented by: Acetaminophen (Ofirmev) 650 mg in 65 mls @ 130 mls/hr IV Q6HP PRN; Protocol PRN Reason: Per Pain Protocol/Fever > 101 Last Infusion: 05/10/20 14:44 Dose: Infused Documented by: Insulin Human Regular 50 unit/ (Sodium Chloride) 100 mls @ 2 mls/hr IV DUR [facility]; Protocol Last Titration: 05/07/20 05:30 Dose: 0 unit/hr, 0 mls/hr Documented by: Sodium Chloride (Sodium Chloride 0.9%) 250 mls @ 20 mls/hr IV .[id number] [facility] Last Admin: 05/11/20 10:56 Dose: Not Given Documented by: Clindamycin Phosphate 600 mg/ (Dextrose) 54 mls @ 100 mls/hr IV Q8H [facility] Last Infusion: 05/11/20 06:30 Dose: Infused Documented by: Sodium Chloride (Sodium Chloride 0.9%) 1,000 mls @ 50 mls/hr IV .Q20H [facility] Last Admin: 05/11/20 03:32 Dose: Not Given Documented by: Vancomycin HCl 1,500 mg/ (Sodium Chloride) 500 mls @ 333.3 mls/hr IV Q48H [facility] Last Admin: 05/11/20 10:18 Dose: 333.3 mls/hr Documented by: Insulin Glargine (Insulin Glargine, Human 1 Unit/0.01 Ml) 20 unit SQ DAILY [facility] Last Admin: 05/11/20 10:19 Dose: 20 units Documented by: Insulin Human Lispro (Insulin Lispro 1 Unit/0.01 Ml Unit) [facility]; Protocol Last Admin: 05/11/20 07:30 Dose: 6 units Documented by: Iron Carb/Multivit/Bristol/Folic Acid (Multivit,Ther Iron,Ca,Fa & Min 1 Tablet) 1 tab PO DAILY [facility] Last Admin: 05/11/20 10:21 Dose: Not Given Documented by: Melatonin (Melatonin 3 Mg Tablet) 3 mg PO HSP PRN PRN Reason: Insomnia Morphine Sulfate (Morphine 4 Mg/Ml Vial) 4 mg IV Q1HP PRN; Protocol PRN Reason: Per Pain Protocol Last Admin: 05/11/20 02:40 Dose: 4 mg Documented by: Ondansetron HCl (Ondansetron 4 Mg Odt Tablet) 4 mg SL Q4-6HP PRN; Protocol PRN Reason: Nausea And Vomiting Ondansetron HCl (Ondansetron 4 Mg/2 Ml Vial) 4 mg IV Q4-6HP PRN; Protocol PRN Reason: Nausea And Vomiting Last Admin: 05/11/20 07:31 Dose: 4 mg Documented by: Senna/Docusate Sodium (Sennosides/Docusate Sodium 1 Tab Tablet) 1 tab PO HS [facility] Last Admin: 05/10/20 20:41 Dose: 1 tab Documented by: Sitagliptin Phosphate (Sitagliptin 50 Mg Tablet) 50 mg PO DAILY [facility] Last Admin: 05/11/20 10:16 Dose: 50 mg Documented by: Sodium Chloride (0.9 % Sodium Chloride 10 Ml Syringe) 10 ml IV Q8 [facility] Last Admin: 05/11/20 05:55 Dose: 10 ml Documented by: Thiamine HCl (Thiamine 100 Mg Tablet) 100 mg PO DAILY [facility] Last Admin: 05/11/20 10:20 Dose: 100 mg Documented by: Vancomycin HCl (Vancomycin Per Pharmacy) 1 order IV UD [facility]; Protocol A/P Assessment and plan (1) Below-knee amputation of left lower extremity: Status: Acute Comment: Patient is POD 1 from left below knee amputation. Surgery went very well, wound closed well and wound vac is in place without drianage, 1. Leave wound vac in place until POD 7 2. PT for transfers 3. Hospitalists for medical management 4. Leave brace on leg for protection of stump 5. Ortho signing off to hospitalists 6. Follow up with [facility] on POD 7 for wound vac removal. Narrative A/P Narrative: * Necrotizing left lower extremity cellulitis/soft tissue infection with gangrene. Status post BKA. Postop day 1. On broad antibiotic coverage including cefepime/clindamycin and vancomycin * Enterococcal bacteremia-surveillance cultures pending. Echocardiogram EF 65% no valvular vegetation identified * Acute hypoxic respiratory failure -clinically resolved now on room air * Severe sepsis secondary to necrotizing soft tissue infection/enterococcal bacteremia. On antibiotic coverage. Clinically improving. * Poorly controlled DM with HHNK on presentation. Now well controlled on basal prandial insulin * Acute mental status change -secondary to severe sepsis endorgan dysfunction * Acute on chronic renal failure-creatinine plateaued at 1.4. * Anemia-improved from 6.6- 8.9, post 2 units PRBC transfusion * History of hypertension-held antihypertensives * Prophylaxis Heparin Plan * Continue postop care per orthopedics/pain management * Continue extended spectrum antibiotic coverage, de-escalate based on culture sensitivities * Close hemodynamic monitoring Time Spent With Patient Time: Total time spent is greater than 50% in coordination of care (as documented) at patient's floor/unit and/or counseling patient: QUALITY VTE Deep Vein Thrombosis/Pulmonary Embolism Present on Admission: No
[2020-05-11] MEDS: ACETAMINOPHEN 650 MG/65 ML BAG IV PRN ×2 (17:08→22:58)
[2020-05-11] MEDS: SENNOSIDES/DOCUSATE SODIUM 1 TAB TABLET PO SCH (20:35)
[2020-05-12] MEDS: 0.9 % SODIUM CHLORIDE 1,000 ML IV SCH (00:05)
[2020-05-12] MEDS: CLINDAMYCIN 600 MG in DEXTROSE 5% IN WATER 50 ML IV SCH (05:31)
[2020-05-12] MEDS: 0.9 % SODIUM CHLORIDE 10 ML SYRINGE IV SCH ×4 (05:47→22:58)
[2020-05-12 06:34] LABS: Basophils # (Auto) 0.02 K/mcL (0.00-0.20); Basophils % (Auto) 0.2 % (0.0-2.0); Eosinophils # (Auto) 0.14 K/mcL (0.00-0.70); Eosinophils % (Auto) 1.7 % (0.0-7.0); Hematocrit 25.8 % (41.0-55.0); Hemoglobin 8.5 g/dL (13.5-16.5); Lymphocytes # (Auto) 1.28 K/mcL (1.50-4.80); Lymphocytes % (Auto) 15.4 % (15.0-49.0); Mean Cell Volume 100.8 fL (80.0-100.0); Mean Corpuscular HGB Conc 32.9 g/dL (31.0-36.0); Mean Platelet Volume 11.4 fL (7.4-10.4); Monocytes # (Auto) 0.65 K/mcL (0.10-0.90); Monocytes % (Auto) 7.8 % (1.0-12.0); Neutrophils % (Auto) 74.9 % (38.0-78.0); Platelet Count 168 K/mcL (140-440); RBC 2.56 M/mcL (4.50-5.90); Red Cell Distribution Width 15.3 % (11.5-14.5); WBC 8.3 K/mcL (4.5-11.0)
[2020-05-12 07:01] LABS: ALT/SGPT 27 U/L (<40); AST/SGOT 50 U/L (<40); Albumin/Globulin Ratio 0.5 (1.0-2.3); Alkaline Phosphatase 155 U/L (39-117); Bilirubin,Total 1.5 mg/dL (0.1-1.0); Blood Urea Nitrogen 56 mg/dL (8-23); Carbon Dioxide 19 mmol/L (22-30); Chloride 103 mmol/L (96-108); Globulin 4.1 gm/dL (2.2-3.7); Glomerular Filtration Rate 56; Glucose 104 mg/dL (70-105); Lactate Dehydrogenase 182 U/L (135-225); Phosphorous 3.3 mg/dL (2.5-4.5); Triglycerides 122 mg/dL (<150)
[2020-05-12] MEDS: INSULIN LISPRO 1 UNIT/0.01 ML UNIT SQ SCH ×4 (07:34→21:05)
[2020-05-12] MEDS: CEFEPIME 2 GM VIAL IV SCH (07:37)
[2020-05-12] MEDS: DOCUSATE SODIUM 100 MG CAPSULE PO SCH ×2 (08:04→21:07)
[2020-05-12] MEDS: THIAMINE 100 MG TABLET PO SCH (08:04)
[2020-05-12] MEDS: HEPARIN 5,000 UNIT/ML VIAL SQ SCH ×2 (08:05→21:07)
[2020-05-12] MEDS: sitaGLIPtin 50 MG TABLET PO SCH (08:05)
[2020-05-12] MEDS: GABAPENTIN 300 MG CAPSULE PO SCH ×2 (08:05→21:07)
[2020-05-12] MEDS: INSULIN GLARGINE, HUMAN 1 UNIT/0.01 ML SQ SCH (08:05)
[2020-05-12] MEDS: MULTIVIT,THER IRON,CA,FA & MIN 1 TABLET PO SCH (08:06)
[2020-05-12] MEDS: ACETAMINOPHEN 650 MG/65 ML BAG IV PRN (10:16)
[2020-05-12] MEDS: 0.9 % SODIUM CHLORIDE 250 ML IV SCH (11:27)
--- NOTE | 2020-05-12 11:41 | Internal Med Progress Note ---
SUBJECTIVE Subjective Patient information: Note initiated : 05/12/20 at 11:38 am Service Date, if different from initiated Date: [] Patient: Frantz Johnston 70 y/o M admitted on 05/06/20 for weakness in legs. Chief Complaint: [] Interval history: Lethargic and complains of pain at amputation stumpMrEmerita Johnston is a 70 year old M with a history of poorly controlled diabetes/lower extremity diabetic wound who presents to the ER due to worsening lower extremity weakness/confusion/inability to take care of self. Patient also has not been able to bear weight or walk for the last few days. He lives alone at [place] and has been medically helpless over the last few days. He frequently sees wound care but was unable to change dressings. He complains of putrid foul- smelling odor with redness tenderness extending up to the lower thighs. He denied associated fever or chills but has been getting confused and lightheaded. Initial work-up in the ER was consistent with hyperosmolar nonketotic state with blood sugars in 600/acute kidney injury/gangrenous changes left lower extremity and bilateral lower extremity cellulitis. Patient was started on antibiotic coverage after cultures were drawn along with insulin drip and crystalloids. Orthopedic was consulted for possible surgical evaluation and amputation. He underwent CT runoff abdomen along with lower extremity that reveals extensive cellulitis in the left foot and gas and subcutaneous fat and fascia. Also cellulitis right lower extremity noted. Hospitalist service was consulted in light of above At the time of evaluation patient is very anxious/confused/unable to provide a detailed history but was able to endorse review of systems. Patient is very lethargic and confused. No family members present. Most of the history was obtained from review of medical records and ED physician. Patient was able to provide a very limited history. He has not been able to change his dressings recently that has led to worsening wounds. He is however reluctant for surgical intervention but his understanding of the severity of necrotizing infection may be limited due to mental status change due to sepsis induced toxic encephalopathy. 05/07-patient critically ill with gangrenous changes left lower extremity along with cellulitis. On broad antibiotic coverage. On insulin drip for HSM today. Hemoglobin 6.8 on 2 units blood transfusion. Remains critically ill. Patient continues to refuse surgical amputation advised by orthopedics. Will likely undergo debridement. Podiatry on board. White count 10.6, hemoglobin 6.6, glucose improved to 136, creatinine 1.6, phosphorus 2.2, bilirubin downtrending at 1.8. -05/07 4 PM . discussed case with anesthesia post surgery. Patient profoundly hypoxic following extubation after debridement irrigation procedure. Patient was started on BiPAP at PACU. Patient was transferred and received in ICU on BiPAP. Stat ABGs not available due to heart state. However patient currently on 40% FiO2. Family members were informed by anesthesia about the critical nature of illness. Patient will be monitored closely and will be intubated if necessary and if evidence of worsening respiratory failure 05/08 patient overnight on BiPAP. More lucid alert this morning. Trial off BiPAP, tolerating well. Stable hemodynamics. Postop dressing. White count 12.9. Hemoglobin improved to 9.9 following units PRBC transfusion, sodium 129, potassium 5.4 likely secondary to hemolysis posttransfusion, continue monitoring, creatinine 1.6, blood sugar 300 started on basal insulin, bilirubin 2.4 05/09-patient remains lethargic however improving white count/hemodynamics. Reviewed by orthopedics for consideration of DKA in the setting of necrotic soft tissue infection with gangrene. Creatinine 1.6. On broad-spectrum antibiotic coverage. Blood culture positive enterococci. Surveillance cultures from 05/08 - so far. 05/10-patient remains encephalopathic due to worsening lower extremity cellulitis/gangrene. On antibiotic coverage. White count 13.6. Due for surgical amputation today. Currently n.p.o. Daughter at bedside. Discussed grim prognosis and patient may require postoperative ICU care due to decompensation during previous surgery. Blood sugars at goal. Systolic stable. Creatinine 1.4 hemoglobin 8.9 05/11-question postop amputation day 1. Remains lethargic and complains of pain at amputation stump. Packager on board. Ongoing therapies. Hemoglobin stable. White count downtrending at 12, systolic stable, continue antibiotic coverage. Potassium 5.9 status post Kayexalate. Creatinine 1.4, blood sugar 193 on basal prandial insulin. 05/12-patient confused and delirious. Potassium improved to 5.2, hemoglobin 8.5, white count normalized, creatinine improved to 1.3, bilirubin downtrending. Continue additional support/postoperative stump care/antibiotic coverage. No additional concerns per nursing staff. On close monitoring. Constitutional Vitals: Vital Signs Temp Pulse Resp BP Pulse Ox 99.3 F H 90 19 156/89 98 05/12/20 08:01 05/12/20 10:01 05/12/20 10:01 05/12/20 10:01 05/12/20 10:01 Period Temp Pulse Resp BP Sys/Anderson Pulse Ox Last 24 Hr 98.0 F-99.6 F 79-98 14-24 117-167/63-102 97-100 Intake and Output 05/11/20 05/12/20 05/12/20 21:59 05:59 13:59 Intake Total 1165 119 809 Output Total 950 825 625 Balance 215 -706 184 Weight 89.414 kg Confused Nonlabored breathing No telemetry events Minimal anxiety Intake & Output: Intake & Output 05/11/20 05/12/20 05/12/20 21:59 05:59 13:59 Intake Total 1165 119 809 Output Total 950 825 625 Balance 215 -706 184 Weight 89.414 kg Intake: IV 1165 119 119 Sodium Chloride 0.9% 1,000 ml @ 1000 50 mls/hr IV .Q20H SOL Rx#: [id number] Cleocin 600 mg In Dextrose 5% 100 54 54 in Water 50 ml @ 100 mls/hr IV Q8H SOL Rx#:[id number] Oral 690 Output: Urine Catheter Amount 950 825 625 Other: Meal Breakfast Percent of Meal Consumed 50% Feeding Ability Assist with Tray Set Up Urine Appearance Clear Clear Clear Uretheral ([place]) Clear Clear Clear Urine Color Light Asia Light Asia Dark Yellow Uretheral (Verdugo) Light Asia Light Asia Dark Yellow Urine Odor Normal Normal Strong Uretheral (Verdugo) Normal OBJ DATA Labs CBC & Chem 7: 05/12/20 05:15 05/12/20 05:14 Labs: Abnormal Lab Results 05/12/20 05/12/20 05/11/20 05:15 05:14 06:14 WBC 12.0 H RBC 2.56 L 2.68 L Hgb 8.5 L 8.9 L Hct 25.8 L 26.6 L MCV 100.8 H MCH RDW 15.3 H 15.4 H MPV 11.4 H 11.5 H Neut % (Auto) 90.0 H Lymph % (Auto) 5.2 L Lymph # (Auto) 1.28 L 0.63 L Rankin # (Auto) Absolute Neutrophils 10.84 H PT INR Sodium 130 L Potassium 5.2 H Carbon Dioxide 19 L Anion Gap BUN 56 H Creatinine 1.3 H Glucose Uric Acid Calcium 8.0 L Phosphorus Magnesium Total Bilirubin 1.5 H Direct Bilirubin 1.0 H GGT 277 H AST 50 H Alkaline Phosphatase 155 H Total Protein Albumin 2.0 L Globulin 4.1 H Albumin/Globulin Ratio 0.5 L 05/11/20 05/10/20 05/10/20 06:13 19:18 13:28 WBC RBC Hgb 9.2 L Hct 27.8 L MCV MCH RDW MPV Neut % (Auto) Lymph % (Auto) Lymph # (Auto) Rankin # (Auto) Absolute Neutrophils PT 16.6 H INR 1.3 H Sodium 128 L Potassium 5.9 H* Carbon Dioxide 15 L Anion Gap BUN 65 H Creatinine 1.4 H Glucose 193 H Uric Acid 9.0 H Calcium 8.2 L Phosphorus 5.2 H Magnesium Total Bilirubin 1.9 H Direct Bilirubin 1.5 H GGT 245 H AST 44 H Alkaline Phosphatase 149 H Total Protein Albumin 2.2 L Globulin 4.1 H Albumin/Globulin Ratio 0.5 L 05/10/20 05/10/20 05/07/20 05:25 05:25 00:05 WBC 13.6 H RBC 2.59 L Hgb 8.9 L Hct 26.4 L MCV 101.9 H MCH 34.4 H RDW 15.6 H MPV 11.2 H Neut % (Auto) 84.8 H Lymph % (Auto) 6.5 L Lymph # (Auto) 0.88 L Rankin # (Auto) 1.09 H Absolute Neutrophils 11.52 H PT INR Sodium 127 L 132 L Potassium 3.1 L Carbon Dioxide 18 L Anion Gap 7.0 L BUN 69 H 72 H Creatinine 1.4 H 1.5 H Glucose 59 L 54 L Uric Acid 8.7 H 8.9 H Calcium 8.0 L 8.2 L Phosphorus 2.0 L Magnesium 1.2 L Total Bilirubin 1.8 H 1.8 H Direct Bilirubin 1.4 H 1.6 H GGT 281 H 131 H AST 67 H Alkaline Phosphatase 160 H Total Protein 5.4 L 5.4 L Albumin 1.5 L 1.8 L Globulin 3.9 H Albumin/Globulin Ratio 0.4 L 0.5 L Meds: Medications Acetaminophen (Acetaminophen 325 Mg Tablet) 650 mg PO Q4-6HP PRN; Protocol PRN Reason: Per Pain Protocol/Fever > 101 Last Admin: 05/11/20 10:16 Dose: 650 mg Documented by: Hydrocodone Bitart/Acetaminophen (Hydrocodone/Apap 10/325mg Tablet) 1 - 2 tab PO Q4HP PRN; Protocol PRN Reason: Per Pain Protocol Bisacodyl (Bisacodyl 10 Mg Supp.Rect) 10 mg FL Q2-3DAYS PRN PRN Reason: Constipation Cefepime HCl (Cefepime 2 Gm Vial) 2 gm IV Q12H SOL; Protocol Last Admin: 05/12/20 07:37 Dose: 2 gm Documented by: Dextrose (Dextrose 50% 50 Ml Vial) 0 ml IV UD PRN PRN Reason: Hypoglycemia Last Admin: 05/07/20 03:10 Dose: 25 ml Documented by: Diagnostic Test (Pha) (Accu-Chek 1 Each Strip) 1 each FS ACHS [facility] Last Admin: 05/12/20 11:24 Dose: 1 each Documented by: Docusate Sodium (Docusate Sodium 100 Mg Capsule) 100 mg PO BID [facility] Last Admin: 05/12/20 08:04 Dose: 100 mg Documented by: Gabapentin (Gabapentin 300 Mg Capsule) 300 mg PO BID [facility] Last Admin: 05/12/20 08:05 Dose: 300 mg Documented by: Glucose (Dextrose 31 Gm Oral.Susp) 15 gm PO PRN PRN PRN Reason: Hypoglycemia Guaifenesin/Codeine Phosphate (Guaifenesin/Codeine 10 Ml Udc) 10 ml PO Q4HP PRN PRN Reason: Cough Heparin Sodium (Porcine) (Heparin 5,000 Unit/Ml Vial) 5,000 unit SQ Q12 [facility] Last Admin: 05/12/20 08:05 Dose: 5,000 unit Documented by: Hydromorphone HCl (Hydromorphone 0.5 Mg/0.5 Ml Syringe) 0.5 mg IV Q4HP PRN; Protocol PRN Reason: Per Pain Protocol Potassium Chloride 40 meq/ (Dextrose) 520 mls @ 130 mls/hr IV UD PRN PRN Reason: K+ = or < 3.5 Last Infusion: 05/07/20 08:20 Dose: Infused Documented by: Magnesium Sulfate (Magnesium Sulfate) 2 gm in 50 mls @ 50 mls/hr IV UD PRN PRN Reason: MG = or < 1.7 Last Infusion: 05/07/20 09:05 Dose: Infused Documented by: Acetaminophen (Ofirmev) 650 mg in 65 mls @ 130 mls/hr IV Q6HP PRN; Protocol PRN Reason: Per Pain Protocol/Fever > 101 Last Infusion: 05/12/20 10:50 Dose: Infused Documented by: Insulin Human Regular 50 unit/ (Sodium Chloride) 100 mls @ 2 mls/hr IV DUR [facility]; Protocol Last Titration: 05/07/20 05:30 Dose: 0 unit/hr, 0 mls/hr Documented by: Sodium Chloride (Sodium Chloride 0.9%) 250 mls @ 20 mls/hr IV .[id number] [facility] Last Admin: 05/12/20 11:27 Dose: Not Given Documented by: Clindamycin Phosphate 600 mg/ (Dextrose) 54 mls @ 100 mls/hr IV Q8H [facility] Last Infusion: 05/12/20 06:10 Dose: Infused Documented by: Sodium Chloride (Sodium Chloride 0.9%) 1,000 mls @ 50 mls/hr IV .Q20H [facility] Last Admin: 05/12/20 00:05 Dose: 50 mls/hr Documented by: Vancomycin HCl 1,500 mg/ (Sodium Chloride) 500 mls @ 333.3 mls/hr IV Q48H [facility] Last Admin: 05/11/20 10:18 Dose: 333.3 mls/hr Documented by: Insulin Glargine (Insulin Glargine, Human 1 Unit/0.01 Ml) 20 unit SQ DAILY [facility] Last Admin: 05/12/20 08:05 Dose: 20 units Documented by: Insulin Human Lispro (Insulin Lispro 1 Unit/0.01 Ml Unit) 0 unit SQ ACHS [facility]; Protocol Last Admin: 05/12/20 11:24 Dose: Not Given Documented by: Iron Carb/Multivit/[place]/Folic Acid (Multivit,Ther Iron,Ca,Fa & Min 1 Tablet) 1 tab PO DAILY [facility] Last Admin: 05/12/20 08:06 Dose: 1 tab Documented by: Melatonin (Melatonin 3 Mg Tablet) 3 mg PO HSP PRN PRN Reason: Insomnia Morphine Sulfate (Morphine 4 Mg/Ml Vial) 4 mg IV Q1HP PRN; Protocol PRN Reason: Per Pain Protocol Last Admin: 05/11/20 02:40 Dose: 4 mg Documented by: Ondansetron HCl (Ondansetron 4 Mg Odt Tablet) 4 mg SL Q4-6HP PRN; Protocol PRN Reason: Nausea And Vomiting Ondansetron HCl (Ondansetron 4 Mg/2 Ml Vial) 4 mg IV Q4-6HP PRN; Protocol PRN Reason: Nausea And Vomiting Last Admin: 05/11/20 07:31 Dose: 4 mg Documented by: Senna/Docusate Sodium (Sennosides/Docusate Sodium 1 Tab Tablet) 1 tab PO HS [facility] Last Admin: 05/11/20 20:35 Dose: 1 tab Documented by: Sitagliptin Phosphate (Sitagliptin 50 Mg Tablet) 50 mg PO DAILY [facility] Last Admin: 05/12/20 08:05 Dose: 50 mg Documented by: Sodium Chloride (0.9 % Sodium Chloride 10 Ml Syringe) 10 ml IV Q8 [facility] Last Admin: 05/12/20 05:47 Dose: 10 ml Documented by: Thiamine HCl (Thiamine 100 Mg Tablet) 100 mg PO DAILY [facility] Last Admin: 05/12/20 08:04 Dose: 100 mg Documented by: Vancomycin HCl (Vancomycin Per Pharmacy) 1 order IV UD [facility]; Protocol A/P Assessment and plan (1) Below-knee amputation of left lower extremity: Status: Acute Comment: Narrative A/P Narrative: * Necrotizing left lower extremity cellulitis/soft tissue infection with gangren e. Status post BKA. Postop day 2. * Enterococcal bacteremia-surveillance cultures pending. Echocardiogram EF 65% , no valvular vegetation identified. Continue vancomycin * Hospital-acquired delirium-continue close monitoring. Frequent reorientation, avoid sedative hypnotics. * Acute hypoxic respiratory failure -clinically resolved now on room air * Severe sepsis secondary to necrotizing soft tissue infection/enterococcal bacteremia. On antibiotic coverage. Clinically improving. * Poorly controlled DM with HHNK on presentation. Now well controlled on basal prandial insulin * Acute mental status change -secondary to severe sepsis endorgan dysfunction * Acute on chronic renal failure-creatinine plateaued at 1.4. * Anemia-improved from 6.6- 8.9, post 2 units PRBC transfusion * History of hypertension-held antihypertensives * Prophylaxis Heparin Plan * Continue postop care per orthopedics/pain management * DC clindamycin/cefepime * Delirium watch, frequent reorientation, avoid narcotics/hypnotics * Close hemodynamic monitoring * PT OT/nutrition support Time Spent With Patient Time: Total time spent is greater than 50% in coordination of care (as documented) at patient's floor/unit and/or counseling patient: QUALITY VTE Deep Vein Thrombosis/Pulmonary Embolism Present on Admission: No
[2020-05-12] MEDS ORDERED: FUROSEMIDE 40 MG/4 ML VIAL IV ONE (18:47)
[2020-05-12] MEDS: MELATONIN 3 MG TABLET PO PRN (21:05)
[2020-05-12] MEDS: SENNOSIDES/DOCUSATE SODIUM 1 TAB TABLET PO SCH (21:07)
[2020-05-12] MEDS: HYDROcodone/APAP 10/325MG TABLET PO PRN (22:59)
[2020-05-13] MEDS: 0.9 % SODIUM CHLORIDE 10 ML SYRINGE IV SCH ×3 (04:50→20:44)
[2020-05-13] MEDS: 0.9 % SODIUM CHLORIDE 250 ML IV SCH (05:35)
[2020-05-13] MEDS: INSULIN LISPRO 1 UNIT/0.01 ML UNIT SQ SCH ×4 (07:48→20:19)
[2020-05-13] MEDS: HYDROcodone/APAP 10/325MG TABLET PO PRN (08:15)
[2020-05-13] MEDS: GABAPENTIN 300 MG CAPSULE PO SCH ×2 (08:16→20:19)
[2020-05-13] MEDS: HEPARIN 5,000 UNIT/ML VIAL SQ SCH ×2 (08:25→20:19)
[2020-05-13] MEDS: INSULIN GLARGINE, HUMAN 1 UNIT/0.01 ML SQ SCH (08:25)
[2020-05-13] MEDS: THIAMINE 100 MG TABLET PO SCH (08:26)
[2020-05-13] MEDS: MULTIVIT,THER IRON,CA,FA & MIN 1 TABLET PO SCH (08:26)
[2020-05-13] MEDS: DOCUSATE SODIUM 100 MG CAPSULE PO SCH ×2 (08:26→20:18)
[2020-05-13] MEDS: sitaGLIPtin 50 MG TABLET PO SCH (08:28)
[2020-05-13] MEDS: VANCOMYCIN 1,500 MG in 0.9 % SODIUM CHLORIDE 500 ML IV SCH (09:00)
[2020-05-13] MEDS: MAGNESIUM SULFATE 2 GM/50 ML BAG IV PRN (09:30)
--- NOTE | 2020-05-13 09:45 | Internal Med Progress Note ---
SUBJECTIVE Subjective Patient information: Note initiated : 05/13/20 at 9:39 am Service Date, if different from initiated Date: [] Patient: Frantz Johnston 70 y/o M admitted on 05/06/20 for weakness in legs. Chief Complaint: [] Interval history: Lethargic and complains of pain at amputation stumpMrEmerita Johnston is a 70 year old M with a history of poorly controlled diabetes/lower extremity diabetic wound who presents to the ER due to worsening lower extremity weakness/confusion/inability to take care of self. Patient also has not been able to bear weight or walk for the last few days. He lives alone at [address] and has been medically helpless over the last few days. He frequently sees wound care but was unable to change dressings. He complains of putrid foul- smelling odor with redness tenderness extending up to the lower thighs. He denied associated fever or chills but has been getting confused and lightheaded. Initial work-up in the ER was consistent with hyperosmolar nonketotic state with blood sugars in 600/acute kidney injury/gangrenous changes left lower extremity and bilateral lower extremity cellulitis. Patient was started on antibiotic coverage after cultures were drawn along with insulin drip and crystalloids. Orthopedic was consulted for possible surgical evaluation and amputation. He underwent CT runoff abdomen along with lower extremity that reveals extensive cellulitis in the left foot and gas and subcutaneous fat and fascia. Also cellulitis right lower extremity noted. Hospitalist service was consulted in light of above At the time of evaluation patient is very anxious/confused/unable to provide a detailed history but was able to endorse review of systems. Patient is very lethargic and confused. No family members present. Most of the history was obtained from review of medical records and ED physician. Patient was able to provide a very limited history. He has not been able to change his dressings recently that has led to worsening wounds. He is however reluctant for surgical intervention but his understanding of the severity of necrotizing infection may be limited due to mental status change due to sepsis induced toxic encephalopathy. 05/07-patient critically ill with gangrenous changes left lower extremity along with cellulitis. On broad antibiotic coverage. On insulin drip for HSM today. Hemoglobin 6.8 on 2 units blood transfusion. Remains critically ill. Patient continues to refuse surgical amputation advised by orthopedics. Will likely undergo debridement. Podiatry on board. White count 10.6, hemoglobin 6.6, glucose improved to 136, creatinine 1.6, phosphorus 2.2, bilirubin downtrending at 1.8. -05/07 4 PM . discussed case with anesthesia post surgery. Patient profoundly hypoxic following extubation after debridement irrigation procedure. Patient was started on BiPAP at PACU. Patient was transferred and received in ICU on BiPAP. Stat ABGs not available due to heart state. However patient currently on 40% FiO2. Family members were informed by anesthesia about the critical nature of illness. Patient will be monitored closely and will be intubated if n ecessary and if evidence of worsening respiratory failure 05/08 patient overnight on BiPAP. More lucid alert this morning. Trial off BiPAP, tolerating well. Stable hemodynamics. Postop dressing. White count 12.9. Hemoglobin improved to 9.9 following units PRBC transfusion, sodium 129, potassium 5.4 likely secondary to hemolysis posttransfusion, continue monitoring, creatinine 1.6, blood sugar 300 started on basal insulin, bilirubin 2.4 05/09-patient remains lethargic however improving white count/hemodynamics. Reviewed by orthopedics for consideration of DKA in the setting of necrotic soft tissue infection with gangrene. Creatinine 1.6. On broad-spectrum antibiotic coverage. Blood culture positive enterococci. Surveillance cultures from 05/08 - so far. 05/10-patient remains encephalopathic due to worsening lower extremity cellulitis/gangrene. On antibiotic coverage. White count 13.6. Due for surgical amputation today. Currently n.p.o. Daughter at bedside. Discussed grim prognosis and patient may require postoperative ICU care due to decompensation during previous surgery. Blood sugars at goal. Systolic stable. Creatinine 1.4 hemoglobin 8.9 05/11-question postop amputation day 1. Remains lethargic and complains of pain at amputation stump. [employer] on board. Ongoing therapies. Hemoglobin stable. White count downtrending at 12, systolic stable, continue antibiotic coverage. Potassium 5.9 status post Kayexalate. Creatinine 1.4, blood sugar 193 on basal prandial insulin. 05/12-patient confused and delirious. Potassium improved to 5.2, hemoglobin 8.5, white count normalized, creatinine improved to 1.3, bilirubin downtrending. Continue additional support/postoperative stump care/antibiotic coverage. No additional concerns per nursing staff. On close monitoring. 05/13 patient doing a lot better. Much more lucid alert and responding to ar pires, participating in physical therapy. Improving renal function, improved appetite. Right lower extremity cellulitis much improved. 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 Surgical dressing in place. Anticipate SNF transfer in 24 to 40 hours. Antibiotics deescalated to vancomycin for enterococci coverag e(penicillin allergic) continue aggressive dietary intervention Constitutional Vitals: Vital Signs Temp Pulse Resp BP Pulse Ox 98.1 F 87 22 157/88 98 05/13/20 08:00 05/12/20 17:55 05/13/20 08:00 05/13/20 08:00 05/13/20 08:00 Period Temp Pulse Resp BP Sys/Anderson Pulse Ox Last 24 Hr 97.8 F-99.4 F 87-90 11-22 122-157/67-89 95-99 Intake and Output 05/12/20 05/13/20 05/13/20 21:59 05:59 13:59 Intake Total 920 Output Total 2750 1725 Balance -1830 -1725 Weight 85.82 kg alert oriented Nonlabored breathing No anxiety Left BKA stump in dressing Verdugo is draining clear urine Intake & Output: Intake & Output 05/12/20 05/13/20 05/13/20 21:59 05:59 13:59 Intake Total 920 Output Total 2750 1725 Balance -1830 -1725 Weight 85.82 kg Intake: IV 920 Sodium Chloride 0.9% 1,000 ml @ 920 50 mls/hr IV .Q20H [facility] Rx#: [id number] Output: Drainage 0 0 Left Knee 0 0 Urine Catheter Amount 2750 1725 Other: Meal Applesauce applesauce. Percent of Meal Consumed 100% 75% Feeding Ability Total Assistance Independent Urine Appearance Clear Clear Uretheral (Verdugo) Clear Clear Urine Color Pale Bright Yellow Uretheral (Verdugo) Dark Yellow Pale Urine Odor Normal Normal Uretheral (Verdugo) Normal OBJ DATA Labs CBC & Chem 7: 05/12/20 05:15 05/12/20 05:14 Labs: Abnormal Lab Results 05/12/20 05/12/20 05/11/20 05:15 05:14 06:14 WBC 12.0 H RBC 2.56 L 2.68 L Hgb 8.5 L 8.9 L Hct 25.8 L 26.6 L MCV 100.8 H RDW 15.3 H 15.4 H MPV 11.4 H 11.5 H Neut % (Auto) 90.0 H Lymph % (Auto) 5.2 L Lymph # (Auto) 1.28 L 0.63 L Absolute Neutrophils 10.84 H PT INR Sodium 130 L Potassium 5.2 H Carbon Dioxide 19 L BUN 56 H Creatinine 1.3 H Glucose Uric Acid Calcium 8.0 L Phosphorus Magnesium Total Bilirubin 1.5 H Direct Bilirubin 1.0 H GGT 277 H AST 50 H Alkaline Phosphatase 155 H Total Protein Albumin 2.0 L Globulin 4.1 H Albumin/Globulin Ratio 0.5 L 05/11/20 05/10/20 05/10/20 06:13 19:18 13:28 WBC RBC Hgb 9.2 L Hct 27.8 L MCV RDW MPV Neut % (Auto) Lymph % (Auto) Lymph # (Auto) Absolute Neutrophils PT 16.6 H INR 1.3 H Sodium 128 L Potassium 5.9 H* Carbon Dioxide 15 L BUN 65 H Creatinine 1.4 H Glucose 193 H Uric Acid 9.0 H Calcium 8.2 L Phosphorus 5.2 H Magnesium Total Bilirubin 1.9 H Direct Bilirubin 1.5 H GGT 245 H AST 44 H Alkaline Phosphatase 149 H Total Protein Albumin 2.2 L Globulin 4.1 H Albumin/Globulin Ratio 0.5 L 05/07/20 00:05 WBC RBC Hgb Hct MCV RDW MPV Neut % (Auto) Lymph % (Auto) Lymph # (Auto) Absolute Neutrophils PT INR Sodium 132 L Potassium 3.1 L Carbon Dioxide BUN 72 H Creatinine 1.5 H Glucose 54 L Uric Acid 8.9 H Calcium 8.2 L Phosphorus 2.0 L Magnesium 1.2 L Total Bilirubin 1.8 H Direct Bilirubin 1.6 H GGT 131 H AST Alkaline Phosphatase Total Protein 5.4 L Albumin 1.8 L Globulin Albumin/Globulin Ratio 0.5 L Meds: Medications Acetaminophen (Acetaminophen 325 Mg Tablet) 650 mg PO Q4-6HP PRN; Protocol PRN Reason: Per Pain Protocol/Fever > 101 Last Admin: 05/11/20 10:16 Dose: 650 mg Documented by: Hydrocodone Bitart/Acetaminophen (Hydrocodone/Apap 10/325mg Tablet) 1 tab PO Q6HP PRN; Protocol PRN Reason: Per Pain Protocol Last Admin: 05/13/20 08:15 Dose: 1 tab Documented by: Bisacodyl (Bisacodyl 10 Mg Supp.Rect) 10 mg ME Q2-3DAYS PRN PRN Reason: Constipation Last Admin: 05/13/20 04:50 Dose: 10 mg Documented by: Dextrose (Dextrose 50% 50 Ml Vial) 0 ml IV UD PRN PRN Reason: Hypoglycemia Last Admin: 05/07/20 03:10 Dose: 25 ml Documented by: Diagnostic Test (Pha) (Accu-Chek 1 Each Strip) 1 each FS ACHS SOL Last Admin: 05/13/20 07:48 Dose: 1 each Documented by: Docusate Sodium (Docusate Sodium 100 Mg Capsule) 100 mg PO BID SOL Last Admin: 05/13/20 08:26 Dose: 100 mg Documented by: Gabapentin (Gabapentin 300 Mg Capsule) 300 mg PO BID SOL Last Admin: 05/13/20 08:16 Dose: 300 mg Documented by: Glucose (Dextrose 31 Gm Oral.Susp) 15 gm PO PRN PRN PRN Reason: Hypoglycemia Heparin Sodium (Porcine) (Heparin 5,000 Unit/Ml Vial) 5,000 unit SQ Q12 SOL Last Admin: 05/13/20 08:25 Dose: 5,000 unit Documented by: Potassium Chloride 40 meq/ (Dextrose) 520 mls @ 130 mls/hr IV UD PRN PRN Reason: K+ = or < 3.5 Last Infusion: 05/07/20 08:20 Dose: Infused Documented by: Magnesium Sulfate (Magnesium Sulfate) 2 gm in 50 mls @ 50 mls/hr IV UD PRN PRN Reason: MG = or < 1.7 Last Infusion: 05/07/20 09:05 Dose: Infused Documented by: Acetaminophen (Ofirmev) 650 mg in 65 mls @ 130 mls/hr IV Q6HP PRN; Protocol PRN Reason: Per Pain Protocol/Fever > 101 Last Infusion: 05/12/20 10:50 Dose: Infused Documented by: Insulin Human Regular 50 unit/ (Sodium Chloride) 100 mls @ 2 mls/hr IV DUR SOL; Protocol Last Titration: 05/07/20 05:30 Dose: 0 unit/hr, 0 mls/hr Documented by: Vancomycin HCl 1,500 mg/ (Sodium Chloride) 500 mls @ 333.3 mls/hr IV Q48H [facility] Last Admin: 05/13/20 09:00 Dose: 333.3 mls/hr Documented by: Insulin Glargine (Insulin Glargine, Human 1 Unit/0.01 Ml) 20 unit SQ DAILY [facility] Last Admin: 05/13/20 08:25 Dose: 20 units Documented by: Insulin Human Lispro (Insulin Lispro 1 Unit/0.01 Ml Unit) 0 unit SQ ACHS [facility]; Protocol Last Admin: 05/13/20 07:48 Dose: Not Given Documented by: Iron Carb/Multivit/Lay Out Technician/Folic Acid (Multivit,Ther Iron,Ca,Fa & Min 1 Tablet) 1 tab PO DAILY [facility] Last Admin: 05/13/20 08:26 Dose: 1 tab Documented by: Melatonin (Melatonin 3 Mg Tablet) 3 mg PO HSP PRN PRN Reason: Insomnia Last Admin: 05/12/20 21:05 Dose: 3 mg Documented by: Ondansetron HCl (Ondansetron 4 Mg Odt Tablet) 4 mg SL Q4-6HP PRN; Protocol PRN Reason: Nausea And Vomiting Ondansetron HCl (Ondansetron 4 Mg/2 Ml Vial) 4 mg IV Q4-6HP PRN; Protocol PRN Reason: Nausea And Vomiting Last Admin: 05/11/20 07:31 Dose: 4 mg Documented by: Senna/Docusate Sodium (Sennosides/Docusate Sodium 1 Tab Tablet) 1 tab PO HS [facility] Last Admin: 05/12/20 21:07 Dose: 1 tab Documented by: Sitagliptin Phosphate (Sitagliptin 50 Mg Tablet) 50 mg PO DAILY [facility] Last Admin: 05/13/20 08:28 Dose: 50 mg Documented by: Sodium Chloride (0.9 % Sodium Chloride 10 Ml Syringe) 10 ml IV Q8 [facility] Last Admin: 05/13/20 04:50 Dose: 10 ml Documented by: Thiamine HCl (Thiamine 100 Mg Tablet) 100 mg PO DAILY [facility] Last Admin: 05/13/20 08:26 Dose: 100 mg Documented by: Vancomycin HCl (Vancomycin Per Pharmacy) 1 order IV UD [facility]; Protocol A/P Assessment and plan (1) Below-knee amputation of left lower extremity: Status: Acute Comment: Narrative A/P Narrative: * Necrotizing left lower extremity cellulitis with gangrene. Status post BKA. Postop day 3. * Enterococcal bacteremia-surveillance cultures negative so far. Echocardiogram EF 65% , no valvular vegetation identified. Continue vancomycin(penicillin allergic) * Hospital-acquired delirium-clinically resolved * Acute hypoxic respiratory failure -clinically resolved now on room air * Severe sepsis secondary to necrotizing soft tissue infection/enterococcal bacteremia. Clinically improved. Continue vancomycin * Poorly controlled DM with HHNK on presentation. Now well controlled on basal prandial insulin * Acute mental status change -secondary to severe sepsis endorgan dysfunction * Acute on chronic renal failure-creatinine plateaued at 1.4. * Anemia-improved from 6.6- 8.9, post 2 units PRBC transfusion * History of hypertension-held antihypertensives * Prophylaxis Heparin Plan * Continue BKA stump care per orthopedics * Continue aggressive physical therapy/nutrition invention * DC Verdugo's catheter * Vancomycin per ID(enterococci bacteremia/penicillin allergic) Time Spent With Patient Time: Total time spent is greater than 50% in coordination of care (as documented) at patient's floor/unit and/or counseling patient: QUALITY VTE Deep Vein Thrombosis/Pulmonary Embolism Present on Admission: No
[2020-05-13 09:46] LABS: Basophils # (Auto) 0.03 K/mcL (0.00-0.20); Basophils % (Auto) 0.4 % (0.0-2.0); Eosinophils # (Auto) 0.16 K/mcL (0.00-0.70); Eosinophils % (Auto) 1.9 % (0.0-7.0); Hematocrit 27.4 % (41.0-55.0); Hemoglobin 9.1 g/dL (13.5-16.5); Lymphocytes # (Auto) 1.24 K/mcL (1.50-4.80); Lymphocytes % (Auto) 14.5 % (15.0-49.0); Mean Cell Volume 100.4 fL (80.0-100.0); Mean Corpuscular HGB Conc 33.2 g/dL (31.0-36.0); Mean Platelet Volume 11.1 fL (7.4-10.4); Monocytes # (Auto) 0.82 K/mcL (0.10-0.90); Monocytes % (Auto) 9.6 % (1.0-12.0); Neutrophils % (Auto) 73.6 % (38.0-78.0); Platelet Count 212 K/mcL (140-440); RBC 2.73 M/mcL (4.50-5.90); Red Cell Distribution Width 14.8 % (11.5-14.5); WBC 8.5 K/mcL (4.5-11.0)
[2020-05-13 09:53] LABS: ALT/SGPT 39 U/L (<40); AST/SGOT 70 U/L (<40); Albumin 2.2 gm/dL (3.2-5.2); Albumin/Globulin Ratio 0.6 (1.0-2.3); Alkaline Phosphatase 167 U/L (39-117); Bilirubin,Direct 0.9 mg/dL (<0.3); Bilirubin,Total 1.5 mg/dL (0.1-1.0); Blood Urea Nitrogen 42 mg/dL (8-23); Calcium 8.1 mg/dL (8.6-10.4); Carbon Dioxide 22 mmol/L (22-30); Chloride 100 mmol/L (96-108); Glomerular Filtration Rate 56; Glucose 109 mg/dL (70-105); Lactate Dehydrogenase 163 U/L (135-225); Phosphorous 3.4 mg/dL (2.5-4.5); Triglycerides 135 mg/dL (<150); Uric Acid 7.1 mg/dL (2.5-8.0)
--- NOTE | 2020-05-13 13:43 | Discharge Summary ---
Discharge Provider Provider Patient information: Note initiated : 05/13/20 at 1:40 pm Service Date, if different from initiated Date: [] Patient: Frantz Johnston 70 y/o M admitted on 05/06/20 for weakness in legs. Chief Complaint: [] Date of admission: 05/06/20 17:50 Discharge date: 05/14/20 Primary care physician: Hayes Issa DO Consults: 05/06/20 Consult to Physician [CONS] Stat Comment: Consulting Provider: Reji Almonte Reason For Exam: Physician to Consult Consult to Physician [CONS] Stat Comment: Consulting Provider: Balwinder Spencer Reason For Exam: Physician to Consult 05/07/20 10:48 Consult to Physician [CONS] Routine Comment: Consulting Provider: Donn Rodriguez Reason For Exam: Physician to Consult 05/08/20 14:18 Consult to Physician [CONS] Routine Comment: Consulting Provider: Jorje Pierre Reason For Exam: left foot Discharge Meds Discharge Medications Home Medications blood sugar diagnostic #100 each 01/26/17 [Rx Confirmed 05/06/20 Last Taken Unknown] pen needle, diabetic 31 gauge x 3/16" #100 each 04/27/17 [Rx Confirmed 05/06/20 Last Taken Unknown] losartan 100 mg-hydrochlorothiazide 25 mg tablet 1 tab PO QDAY #90 tab 03/26/20 [Rx Confirmed 05/06/20 Last Taken Unknown] blood pressure test kit-large #1 ea 04/16/20 [Rx Confirmed 05/06/20 Last Taken Unknown] gabapentin 300 mg capsule 300 mg PO BID #180 cap 04/16/20 [Rx Confirmed 05/06/20 Last Taken Unknown] metformin 1,000 mg PO BID 05/06/20 [History Confirmed 05/06/20 Last Taken Unknown] insulin glargine [Lantus Solostar U-100 Insulin] 20 unit SUBCUT QAM #3 ml 05/13/20 [Rx Last Taken Unknown] vancomycin in 0.9 % sodium chl 1.5 g IV Q48 #1 ml 05/13/20 [Rx Last Taken Unknown] COURSE Hospital Course Hospital course: Interval history: Lethargic and complains of pain at amputation stumpMr. Johnston is a 70 year old M with a history of poorly controlled diabetes/lower extremity diabetic wound who presents to the ER due to worsening lower extremity weakness/confusion/inability to take care of self. Patient also has not been able to bear weight or walk for the last few days. He lives alone at [facility] and has been medically helpless over the last few days. He frequently sees wound care but was unable to change dressings. He complains of putrid foul- smelling odor with redness tenderness extending up to the lower thighs. He denied associated fever or chills but has been getting confused and lightheaded. Initial work-up in the ER was consistent with hyperosmolar nonketotic state with blood sugars in 600/acute kidney injury/gangrenous changes left lower extremity and bilateral lower extremity cellulitis. Patient was started on antibiotic coverage after cultures were drawn along with insulin drip and crystalloids. Orthopedic was consulted for possible surgical evaluation and amputation. He underwent CT runoff abdomen along with lower extremity that reveals extensive cellulitis in the left foot and gas and subcutaneous fat and fascia. Also cellulitis right lower extremity noted. Hospitalist service was consulted in light of above At the time of evaluation patient is very anxious/confused/unable to provide a detailed history but was able to endorse review of systems. Patient is very lethargic and confused. No family members present. Most of the history was obtained from review of medical records and ED physician. Patient was able to provide a very limited history. He has not been able to change his dressings recently that has led to worsening wounds. He is however reluctant for surgical intervention but his understanding of the severity of necrotizing infection may be limited due to mental status change due to sepsis induced toxic encephalopathy. 05/07-patient critically ill with gangrenous changes left lower extremity along with cellulitis. On broad antibiotic coverage. On insulin drip for HSM today. Hemoglobin 6.8 on 2 units blood transfusion. Remains critically ill. Patient continues to refuse surgical amputation advised by orthopedics. Will likely undergo debridement. Podiatry on board. White count 10.6, hemoglobin 6.6, glucose improved to 136, creatinine 1.6, phosphorus 2.2, bilirubin downtrending at 1.8. -05/07 4 PM . discussed case with anesthesia post surgery. Patient profoundly hypoxic following extubation after debridement irrigation procedure. Patient was started on BiPAP at PACU. Patient was transferred and received in ICU on BiPAP. Stat ABGs not available due to heart state. However patient currently on 40% FiO2. Family members were informed by anesthesia about the critical nature of illness. Patient will be monitored closely and will be intubated if necessary and if evidence of worsening respiratory failure 05/08 patient overnight on BiPAP. More lucid alert this morning. Trial off BiPAP, tolerating well. Stable hemodynamics. Postop dressing. White count 12.9. Hemoglobin improved to 9.9 following units PRBC transfusion, sodium 129, potassium 5.4 likely secondary to hemolysis posttransfusion, continue monitoring, creatinine 1.6, blood sugar 300 started on basal insulin, bilirubin 2.4 05/09-patient remains lethargic however improving white count/hemodynamics. Reviewed by orthopedics for consideration of DKA in the setting of necrotic soft tissue infection with gangrene. Creatinine 1.6. On broad-spectrum antibiotic coverage. Blood culture positive enterococci. Surveillance cultures from 05/08 - so far. 05/10-patient remains encephalopathic due to worsening lower extremity cellulitis/gangrene. On antibiotic coverage. White count 13.6. Due for surgical amputation today. Currently n.p.o. Daughter at bedside. Discussed grim prognosis and patient may require postoperative ICU care due to decompensation during previous surgery. Blood sugars at goal. Systolic stable. Creatinine 1.4 hemoglobin 8.9 05/11-question postop amputation day 1. Remains lethargic and complains of pain at amputation stump. [employer] on board. Ongoing therapies. Hemoglobin stable. White count downtrending at 12, systolic stable, continue antibiotic coverage. Potassium 5.9 status post Kayexalate. Creatinine 1.4, blood sugar 193 on basal prandial insulin. 05/12-patient confused and delirious. Potassium improved to 5.2, hemoglobin 8.5, white count normalized, creatinine improved to 1.3, bilirubin downtrending. Continue additional support/postoperative stump care/antibiotic coverage. No additional concerns per nursing staff. On close monitoring. 05/13 patient doing a lot better. Much more lucid alert and responding to commands, participating in physical therapy. Improving renal function, improved appetite. Right lower extremity cellulitis much improved. 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 Surgical dressing in place. Anticipate SNF transfer in 24 to 40 hours. Antibiotics deescalated to vancomycin for enterococci coverage(penicillin allergic) continue aggressive dietary intervention 05/14 no change overnight. working at discharge to SNF. Sodium was low, improved today. Necrotizing left lower extremity cellulitis with gangrene. Status post BKA. Postop day 3. Enterococcal bacteremia-surveillance cultures negative so far. Echocardiogram EF 65% , no valvular vegetation identified. Continue vancomycin(penicillin allergic) Hospital-acquired delirium-clinically resolved Acute hypoxic respiratory failure -clinically resolved now on room air Severe sepsis secondary to necrotizing soft tissue infection/enterococcal bacteremia. Clinically improved. Continue vancomycin Poorly controlled DM with HHNK on presentation. Now well controlled on basal prandial insulin Acute mental status change -secondary to severe sepsis endorgan dysfunction Acute on chronic renal failure-creatinine plateaued at 1.4. Anemia-improved from 6.6- 8.9, post 2 units PRBC transfusion History of hypertension-held antihypertensives Dysphagia: diet per ST Discharge diagnosis: Necrotizing cellulitis with gangrene. Enterococcus bacteremia hypoxic resp Secondary discharge diagnosis: Sepsis poorly controlled diabetes acute mental status change anemia hypertension leti Time Spent with Patient Time attestation: Total time spent providing and/or coordinating discharge se rvices: Time spent: Greater than 30 minutes EXAM Constitutional Vitals: Temp Pulse Resp BP Pulse Ox 98.1 F 87 11 L 130/76 98 05/13/20 12:01 05/12/20 17:55 05/13/20 12:01 05/13/20 12:01 05/13/20 12:01 Discharge Data Data Completed and Pending Labs on day of discharge: Labs from last 24 hours 05/13/20 05/13/20 08:49 08:49 WBC 8.5 RBC 2.73 L Hgb 9.1 L Hct 27.4 L MCV 100.4 H MCH 33.3 MCHC 33.2 RDW 14.8 H Plt Count 212 MPV 11.1 H Neut % (Auto) 73.6 Lymph % (Auto) 14.5 L [place] % (Auto) 9.6 Eos % (Auto) 1.9 Baso % (Auto) 0.4 Lymph # (Auto) 1.24 L [place] # (Auto) 0.82 Eos # (Auto) 0.16 Baso # (Auto) 0.03 Absolute Neutrophils 6.28 Sodium 126 L Potassium 4.8 Chloride 100 Carbon Dioxide 22 Anion Gap 4.0 L BUN 42 H Creatinine 1.3 H GFR Calculation 56 Glucose 109 H Uric Acid 7.1 Calcium 8.1 L Phosphorus 3.4 Magnesium 1.6 Total Bilirubin 1.5 H Direct Bilirubin 0.9 H GGT 337 H AST 70 H ALT 39 Alkaline Phosphatase 167 H Lactate Dehydrogenase 163 Total Protein 6.2 Albumin 2.2 L Globulin 4.0 H Albumin/Globulin Ratio 0.6 L Triglycerides 135 Preliminary micro results at discharge 05/09/20 16:01 Blood Culture - Preliminary Blood 05/07/20 13:00 Gram Stain - Preliminary Foot - Left Anaerobic Culture - Preliminary Gram Stain - Preliminary Wound Culture - Preliminary Enterococcus species Beta strep Staphylococcus aureus Discharge Plan Patient/Caregiver Discharge Instructions Activity: increase activity as tolerated Diet: Dysphagia Level 4 Pureed Foods Activity Restrictions/Additional Instructions: CBC/CMP in 1 week and send to Dr. Rodriguez f/u with Speech Therapy Vancomycin to finish 05/24/2020. Prescriptions: New vancomycin in 0.9 % sodium chl 1.5 gram/250 mL solution 1.5 g IV Q48 Qty: 1 RF: 0 Lantus Solostar U-100 Insulin 100 unit/mL (3 mL) insulin pen 20 unit subcut QAM Qty: 3 RF: 0 Continued (DME) pen needle, diabetic [BD Ultra-Fine Mini Pen Needle] 31 gauge x 3/16" needle See Dose Instructions .ROUTE .MEDSUPPLY Qty: 100 RF: 11 (DME) blood sugar diagnostic [Contour Next Test Strips] strip See Dose Instructions .ROUTE .MEDSUPPLY Qty: 100 RF: 4 losartan-hydrochlorothiazide 100-25 mg tablet 1 tab PO QDAY Qty: 90 RF: 3 gabapentin 300 mg capsule 300 mg PO BID Qty: 180 RF: 3 (DME) blood pressure test kit-large Kit See Rx Instructions .ROUTE .MEDSUPPLY Qty: 1 RF: 0 metformin 1,000 mg Tablet 1,000 mg PO BID RF: 0 Other Ambulatory Orders: Blood Glucose Strips (Routine) Location: None Selected Ordered By: Kurtis Palm Insulin Piqua and Syringes (Routine) Location: None Selected Ordered By: Kurtis Palm Lancets (Routine) Location: None Selected Ordered By: Kurtis Palm OT Discharge Order (Routine) Facility: [facility] - Location: [facility] Ordered By: Kurtis Palm Physical Therapy at Discharge - General (Routine) Facility: [facility] - Location: [facility] Ordered By: Kurtis Palm ST Discharge Order (Routine) Facility: [facility] - Location: [facility] Ordered By: Kurtis Palm Follow Up Plan Follow up with: Keegan Farrar MD [Physician] - Hayes Issa DO [Primary Care Provider] - Donn Rodriguez MD [Physician] - Patient Disposition: Xfer SNF Prognosis: Fair Rehab Potential: Fair I certify that the patient requires SNF services: Yes Overall status at discharge: patient is progressing back to baseline Discharge Orders: Discharge Order (Routine); Ordered 05/14/20 Ordered By: Kurtis Palm QUALITY VTE Deep Vein Thrombosis/Pulmonary Embolism Present on Admission: No
[2020-05-13] MEDS: MELATONIN 3 MG TABLET PO PRN (20:12)
[2020-05-13] MEDS: ACETAMINOPHEN 325 MG TABLET PO PRN (20:18)
[2020-05-13] MEDS: SENNOSIDES/DOCUSATE SODIUM 1 TAB TABLET PO SCH (20:21)
[2020-05-14] MEDS: 0.9 % SODIUM CHLORIDE 10 ML SYRINGE IV SCH (05:06)
[2020-05-14] MEDS: INSULIN LISPRO 1 UNIT/0.01 ML UNIT SQ SCH ×2 (07:09→12:02)
[2020-05-14] MEDS: ACETAMINOPHEN 650 MG/65 ML BAG IV PRN (07:40)
[2020-05-14] MEDS: HEPARIN 5,000 UNIT/ML VIAL SQ SCH (09:47)
[2020-05-14] MEDS: GABAPENTIN 300 MG CAPSULE PO SCH (09:48)
[2020-05-14] MEDS: INSULIN GLARGINE, HUMAN 1 UNIT/0.01 ML SQ SCH (09:48)
[2020-05-14] MEDS: DOCUSATE SODIUM 100 MG CAPSULE PO SCH (09:48)
[2020-05-14] MEDS: MULTIVIT,THER IRON,CA,FA & MIN 1 TABLET PO SCH (09:48)
[2020-05-14] MEDS: THIAMINE 100 MG TABLET PO SCH (09:48)
[2020-05-14] MEDS: sitaGLIPtin 50 MG TABLET PO SCH (10:07)
[2020-05-14 10:41] LABS: POC Blood Urea Nitrogen 32 mg/dL (6-20); POC CO2 20 mmol/L (22-30); POC Calcium, Ionized 1.17 mmEq/L (1.16-1.32); POC Chloride 107 mEq/L (96-108); POC Creatinine 1.1 mg/dL (0.6-1.2); POC Glucose, Random 120 mg/dL (70-105); POC Hematocrit 24 % (41-55); POC Potassium 4.8 mEql/L (3.3-5.1); POC Sodium 135 mEq/L (133-145)
--- NOTE | 2020-05-14 15:33 | Surgical Pathology Report ---
Histology Microscopic Diagnosis Specimen A- LEG, LEFT, [id number] AMPUTATION: --- MULTIPLE GANGRENOUS ULCERATIONS WITH SEVERE ACUTE/CHRONIC INFLAMMATION, NECROSIS, FIBROSIS AND HEMORRHAGE. --- MARKED ATHEROSCLEROSIS WITH INTIMAL THICKENING, CALCIFICATION AND LUMINAL NARROWING. --- OSSEOUS MARGIN APPEARS VIABLE AND SHOWS NO EVIDENCE OF SIGNIFICANT INFLAMMATORY PROCESS. --- CUTANEOUS AND SOFT TISSUE MARGINS GROSSLY APPEAR VIABLE. (ACP:adj) Procedural Impression Septic left lower limb. Gross Description Received fresh is a [id number] amputation specimen of the left leg. The length from tibial resection margin to heel is 41.5 cm. The broadest diameter in the superior aspect of the specimen is 11.5 cm. All of the toes are present and in good shape with some mycotic discoloration and disfiguration of a the nail, particularly of the great toe. The posterior skin resection margin is 11 cm distal to the tibial resection margin. The anterior skin resection margin is 5 cm distal to the tibial resection margin. The plantar surface shows an irregularly shaped area of dark black to brown apparently necrotic tissue. Overall this area measures 18.5 cm. At the heel particularly on the lateral aspect there is a deep wound which exudes cabrera-pickard purulent material. There are several ulcers over the length of the specimen. These are through the skin to the underlying tissue. One ulcer is 2.5 cm distal to the posterior skin resection margin and is 2 cm in greatest dimension. An additional ulcer on the posterior aspect of the leg is 11.5 cm distal to the skin resection margin and is up to 2 cm. Additional ulcers around the ankle vary from 0.7 to 2 cm in greatest dimension. Several similar ulcers are non the mid laughlin aspect. On sectioning much of the soft tissue surrounding the heel and extending to the mid aspect is liquified purulent necrotic material. The specimen is sectioned to reveal the major arteries. The posterior tibial artery appears patent throughout it course. No areas of occlusion are grossly identified. The anterior tibial artery appears patent throughout its course with no areas of occlusion identified. No other masses or lesions are identified within the specimen. Sections submitted: A1 - fatty marrow at the resection margin; A2 - distal popliteal or superior posterior tibial artery at the resection; A3 - sections of viable appear skin and necrotic areas of the heel of the foot; A4 - anterior tibial artery; A5 - posterior tibial artery. (RAD:adj) Electronically Signed Derrick Adair MD, FCAP Electronically Signed 05/14/2020 15:32
== END 2020-05-14 14:00 | DRG 853 ==
LOC: ED 11:13 → ICU 17:50
PROVIDERS: ADMIT Internal Medicine; ATTEND Internal Medicine